=== PATIENT | male | born 1935 | race African-American/Black ===

== ENCOUNTER 2017-01-16 07:35 | Day surgery (SDC) | payer MEDICARE, BC ==
[2017-01-16 08:36] LABS: ABSOLUTE BASOPHILS # (AUTO) 0.1 10^3/uL (0.0-0.2); ABSOLUTE EOSINOPHILS # (AUTO) 0.2 10^3/uL (0.0-0.6); ABSOLUTE LYMPHOCYTES (AUTO) 1.7 10^3/uL (0.5-4.7); ABSOLUTE MONOCYTES (AUTO) 0.7 10^3/uL (0.1-1.4); ABSOLUTE NEUT (AUTO) 2.8 10^3/uL (1.7-8.2); BASOPHILS % (AUTO) 1.1 % (0-2); EOSINOPHILS % (AUTO) 3.8 % (0-6); HEMATOCRIT 32.8 % (37.9-51.0); HEMOGLOBIN 10.9 g/dL (13.5-17.0); HGB HCT DIFFERENCE -0.1; LYMPHOCYTES % (AUTO) 30.7 % (13-45); MEAN CORPUSCULAR HEMOGLOBIN 29.3 pg (27.0-33.4); MEAN CORPUSCULAR HGB CONC 33.4 g/dL (32.0-36.0); MEAN CORPUSCULAR VOLUME 88 fl (80-97); MONOCYTES % (AUTO) 13.1 % (3-13); RED BLOOD COUNT 3.74 10^6/uL (4.35-5.55); RED CELL DISTRIBUTION WIDTH 15.8 % (11.5-14.0); SEGMENTED NEUTROPHILS % (AUTO) 51.3 % (42-78); WHITE BLOOD COUNT 5.4 10^3/uL (4.0-10.5)
[2017-01-16 08:51] LABS: ANION GAP 15 (5-19); BLOOD UREA NITROGEN 59 mg/dL (7-20); CALCIUM 9.6 mg/dL (8.4-10.2); CARBON DIOXIDE 26 mmol/L (22-30); CHLORIDE 104 mmol/L (98-107); CREATININE RESULT 6.58 mg/dL (0.52-1.25); GLUCOSE 90 mg/dL (75-110); POTASSIUM 3.7 mmol/L (3.6-5.0); SODIUM 145.1 mmol/L (137-145)
[2017-01-16] MEDS ORDERED: FENTANYL CITRATE INJ/PF 100 MCG/2 ML AMPUL ONE (09:35)
[2017-01-16] MEDS ORDERED: HEPARIN SOD (PORCINE) 5,000 UNIT/ML 1 ML SYRINGE ONE (09:35)
[2017-01-16] MEDS ORDERED: MIDAZOLAM 2 MG/2 ML INJ ONE (09:35)
[2017-01-16] MEDS ORDERED: LIDOCAINE 0.5% INJ-PF (5 MG/ML) 50 ML SDV ONE (09:50)
--- NOTE | 2017-01-16 11:22 | PDOC DISCHARGE SUMMARY ---
Discharge Summary (SDC) - Discharge Final Diagnosis: 1 malfunctioning AV fistula. #2 end-stage renal disease. #3 multiple comorbidities. Date of Surgery: 01/16/17 Discharge Date: 01/16/17 Condition: Fair Treatment or Instructions: #1 discharge patient home after achieving ASU criteria. #2 continue medications per medication reconciliation sheet. #3 follow-up in office by appointment in about 1 month, call for appointment. #4 dressing to be left on until dialysis. #5 continue scheduled hemodialysis. #6 may shower starting in 48 hours. Discharge Diet: Other (Comments) - Renal Respiratory Treatments at Home: Deep Breathing/Coughing Report the Following to Your Physician Immediately: Unusual Bleeding
--- NOTE | 2017-01-16 11:25 | PDOC H&P ---
General Chief Complaint: This patient was referred across from hemodialysis because of a malfunctioning fistula. It has been in place for several years and dysfunction noted recently. - Diagnosis (1) ESRD (end stage renal disease) Is this a Current Diagnosis?: Yes (2) Malfunction of arteriovenous dialysis fistula Is this a Current Diagnosis?: Yes - Current Medications/Allergies Home Medications: Doxazosin Mesylate 1 tab PO QHS 07/01/14 Aspirin [Aspirin 81 mg Chewable Tablet] 1 tab PO QHS 05/26/15 Insulin Glargine,Hum.rec.anlog [Lantus Solostar] 12 units SQ QPM PRN 10/18/15 B Complex & C No.20/Folic Acid [Lewis Caps Softgel] 1 tab PO DAILY 08/08/16 Calcium Acetate 667 mg PO DAILY 08/08/16 Cholecalciferol (Vitamin D3) [Vitamin D3] 2,000 unit PO DAILY 08/08/16 Allergies/Adverse Reactions: No Known Allergies Allergy (Verified 01/16/17 08:19) Past Medical History Cardiac Medical History: Reports: Hypertension Denies: Coronary Artery Disease, Myocardial Infarction Pulmonary Medical History: Denies: Asthma, Bronchitis, Chronic Obstructive Pulmonary Disease (COPD), Pneumonia Neurological Medical History: Denies: Seizures Musculoskeltal Medical History: Reports: Arthritis - GENERALIZED Hematology: Reports: Anemia Past Surgical History Past Surgical History: Reports: Vascular Surgery - Left forearm radiocephalic fistula. Failed. Left transposed basilic vei Family History Family History: Reviewed & Not Pertinent Parental Family History Reviewed: No Children Family History Reviewed: No Sibling(s) Family History Reviewed.: No Social History Smoking Status: Current Every Day Smoker Physical Exam Vital Signs: Temp Pulse Resp BP Pulse Ox 97.6 F 83 16 142/81 H 99 01/16/17 11:00 01/16/17 11:15 01/16/17 11:15 01/16/17 11:15 01/16/17 11:15 Intake & Output 01/15/17 01/16/17 01/17/17 06:59 06:59 06:59 Weight 77 kg Additional comments: Constitutional: A well-developed well-nourished -Monegasque gentleman. No acute distress. Eyes: Mucous membranes pink and moist, sclerae anicteric, pupils react normally. Arcus senilis noted. Respiratory: No shortness of breath or wheezing. Breath sounds are normal and equal. Cardiac: Heart sounds normal, no murmurs, no increased JVP. Extremities: Upper extremities shows normal range of movement and pulses. 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 Bruit normal. Firm to palpation. Psychiatric: judgment, memory, insight seem normal. Mood is normal, appropriate and pleasant. Impression/Plan Impression: #1 malfunctioning AV fistula, left transposed basilic to brachial fistula. #2 end-stage renal disease on hemodialysis. #3 hypertension. Plan: The plan is to do an angiogram and possibly angioplasty. The object is to improve the fistula function. Ultimately would like this fistula to fistula to serve the patient for as long as possible. The risks, benefits, expected outcome and alternatives are familiar to the patient and he wishes to proceed.
--- NOTE | 2017-01-16 11:29 | Operative Report ---
Operative Report DATE OF SURGERY: 01/16/17 PREOPERATIVE DIAGNOSIS: #1 malfunctioning AV fistula, left transposed basilic to brachial fistula. #2 end-stage renal disease on hemodialysis. #3 hypertension. POSTOPERATIVE DIAGNOSIS: #1 malfunctioning AV fistula, left transposed basilic to brachial fistula. #2 end-stage renal disease on hemodialysis. #3 hypertension. OPERATION: #1 needle introduction into fistula. #2 angiogram angioplasty. #3 angiogram and interpretation. SURGEON: ELIZABETH TAYLOR TRUCK CHAUFFEUR: none ANESTHESIA: Moderate Sedation TISSUE REMOVED OR ALTERED: Applicable COMPLICATIONS: None ESTIMATED BLOOD LOSS: 2 mL. INTRAOPERATIVE FINDINGS: Of a short segment tight stenosis at about 20 cm from the arteriovenous anastomosis. Cephalad soft, proximally very firm initially. After angioplasty the fistula appropriately softer with better flow. The angiographic results were of elimination of the area of stenosis after angioplasty. Initial stenosis is about 90% of the adjacent lumen. After angioplasty was eliminated. PROCEDURE: PROCEDURE: After verifying the procedure and having obtained informed consent, the patient's left arm was prepared with Chlorhexidine and draped out with sterile linen. Local anesthesia infiltrated. Percutaneous access into the fistula ,[ antegrade], obtained about [2 cm] from the arteriovenous anastomosis using a micro puncture needle followed by micro puncture wire and then a micro puncture catheter. Angiogram demonstrated the aforementioned findings. Angioplasty was elected. A 0.035 [place] wire was inserted, and over this, a 6 Afghan short introducer was placed, this was followed by a [7-mm ] angioplasty balloon . Angioplasty was done at the stenotic segment, inflating up to 14 rohith for 2 minutes. This was done incrementally. Completion angiogram showed residual stenosis. The 70 mm balloon was once again and inflated the 18 rohith for 1 minute. Repeat angiogram showed some residual stenosis. A 8 mm angioplasty was now inserted over the culprit area and inflated up to 6 rohith for 2 minutes. Completion angiogram demonstrated [satisfactory result]. The instrumentation was now withdrawn over pressure for 10 minutes. Dressings applied, procedure concluded. Exposure time: 0.4 minutes Radiation: 33 rebecca per centimeter squared Contrast: 25 mm of Isovue-M 300, low osmolality. DICTATING PHYSICIAN: ELIZABETH CASTRO M.D. cc: ELIZABETH CASTRO M.D. ([id number]) >>
[2017-01-16 12:10] VITALS: BP 140/82
--- NOTE | 2017-01-16 16:00 | EKG REPORT ---
SEVERITY:- ABNORMAL ECG - SINUS RHYTHM LEFT AXIS DEVIATION PROLONGED QT INTERVAL 1ST DEGREE AV BLOCK : Confirmed by: José Miguel Guerra 16-Jan-2017 15:59:19
== END 2017-01-16 12:08 | disposition home or self-care (01) ==
LOC: CCL 07:35
PROVIDERS: ATTEND Surgery
PROC: 05793DZ Dilation of Right Brachial Vein with Intraluminal Device, Percutaneous Approach (ICD-10-PCS; principal; 2017-01-16)
DX: T82.858A Stenosis of other vascular prosthetic devices, implants and grafts, initial encounter (principal); Y83.2 Surgical operation with anastomosis, bypass or graft as the cause of abnormal reaction of the patient, or of later complication, without mention of misadventure at the time of the procedure; I12.0 Hypertensive chronic kidney disease with stage 5 chronic kidney disease or end stage renal disease; N18.6 End stage renal disease; Z99.2 Dependence on renal dialysis; M19.90 Unspecified osteoarthritis, unspecified site; F17.210 Nicotine dependence, cigarettes, uncomplicated; J44.9 Chronic obstructive pulmonary disease, unspecified; Z79.4 Long term (current) use of insulin; Z79.899 Other long term (current) drug therapy; Z79.01 Long term (current) use of anticoagulants; Z79.82 Long term (current) use of aspirin
CPT/HCPCS: 36415; 85025; 80048; 36902; 93005; 93010; C1725 ×2; Q9967; C1769; J2250; J1644 ×2; J3010; J3490

== ENCOUNTER 2017-03-06 09:32 | Day surgery (SDC) | payer MEDICARE, BC ==
[~2017-03-06 09:32] MED LIST: DIAZEPAM 5 MG TABLET PO PRN; OXYCODONE-ACETAMINOPHEN 5-325 MG TABLET PO PRN
[2017-03-06 10:20] LABS: HEMATOCRIT 33.8 % (37.9-51.0); HEMOGLOBIN 11.4 g/dL (13.5-17.0); HGB HCT DIFFERENCE 0.4; MEAN CORPUSCULAR HEMOGLOBIN 29.7 pg (27.0-33.4); MEAN CORPUSCULAR HGB CONC 33.8 g/dL (32.0-36.0); MEAN CORPUSCULAR VOLUME 88 fl (80-97); RED BLOOD COUNT 3.84 10^6/uL (4.35-5.55); RED CELL DISTRIBUTION WIDTH 16.5 % (11.5-14.0); WHITE BLOOD COUNT 5.6 10^3/uL (4.0-10.5)
[2017-03-06 10:39] LABS: ANION GAP 14 (5-19); BLOOD UREA NITROGEN 65 mg/dL (7-20); CALCIUM 9.3 mg/dL (8.4-10.2); CARBON DIOXIDE 25 mmol/L (22-30); CHLORIDE 102 mmol/L (98-107); GLUCOSE 82 mg/dL (75-110); POTASSIUM 3.7 mmol/L (3.6-5.0); SODIUM 140.8 mmol/L (137-145)
[2017-03-06] MEDS ORDERED: MIDAZOLAM 2 MG/2 ML INJ ONE (11:32)
[2017-03-06] MEDS ORDERED: FENTANYL CITRATE INJ/PF 100 MCG/2 ML AMPUL ONE (11:32)
[2017-03-06] MEDS ORDERED: LIDOCAINE 0.5% INJ-PF (5 MG/ML) 50 ML SDV ONE (11:32)
[2017-03-06] MEDS ORDERED: HEPARIN SOD (PORCINE) 5,000 UNIT/ML 1 ML SYRINGE ONE (11:33)
--- NOTE | 2017-03-06 13:09 | PDOC H&P ---
General Chief Complaint: This patient was referred from dialysis because of a malfunctioning arteriovenous fistula. - Current Medications/Allergies Home Medications: Doxazosin Mesylate 1 tab PO QHS 07/01/14 Aspirin [Aspirin 81 mg Chewable Tablet] 1 tab PO QHS 05/26/15 Insulin Glargine,Hum.rec.anlog [Lantus Solostar] 12 units SQ QPM PRN 10/18/15 B Complex & C No.20/Folic Acid [[place] Caps Softgel] 1 tab PO DAILY 08/08/16 Cholecalciferol (Vitamin D3) [Vitamin D3] 2,000 unit PO DAILY 08/08/16 Allergies/Adverse Reactions: No Known Allergies Allergy (Verified 01/16/17 08:19) Past Medical History Cardiac Medical History: Reports: Hypertension Denies: Coronary Artery Disease, Myocardial Infarction Pulmonary Medical History: Denies: Asthma, Bronchitis, Chronic Obstructive Pulmonary Disease (COPD), Pneumonia Neurological Medical History: Denies: Seizures Musculoskeltal Medical History: Reports: Arthritis Hematology: Reports: Anemia Past Surgical History Past Surgical History: Reports: Vascular Surgery - Left forearm radiocephalic fistula. Failed. Left transposed basilic vei Family History Family History: Reviewed & Not Pertinent Parental Family History Reviewed: No Children Family History Reviewed: No Sibling(s) Family History Reviewed.: No Social History Smoking Status: Never Smoker Physical Exam Vital Signs: Temp Pulse Resp BP Pulse Ox 98.3 F 79 16 147/87 H 100 03/06/17 11:14 03/06/17 12:58 03/06/17 11:14 03/06/17 11:14 03/06/17 11:14 Intake & Output 03/05/17 03/06/17 03/07/17 06:59 06:59 06:59 Weight 82 kg Additional comments: A well-developed well-nourished -Ugandan male. Mildly increased body habitus. No acute distress. Eyes membranes is pink and moist, sclerae anicteric. Respiratory no shortness of breath. Breath sounds are normal and equal bilaterally. Cardiac: Heart sounds 1 and 2 heard, no murmurs. Upper extremities show normal range of movement and pulsatile to the radials. Normal capillary refill. A cephalic to brachial fistula is appreciated. In the left upper extremity. Somewhat firm, suggesting cephalad stenosis. Psychiatric the patient is alert, oriented, judgment, memory, insight normal Impression/Plan Impression: #1 malfunctioning arteriovenous fistula, left cephalic to brachial. #2 end-stage renal disease on hemodialysis. #3 hypertension Plan: The plan is to do an angiogram of the fistula and to correct any apparent problems. The goal is to have a sustained use of this fistula for long-term into the future.
--- NOTE | 2017-03-06 13:15 | Operative Report ---
Operative Report DATE OF SURGERY: 03/06/17 PREOPERATIVE DIAGNOSIS: #1 malfunctioning arteriovenous fistula, left cephalic to brachial. #2 end-stage renal disease on hemodialysis. #3 hypertension POSTOPERATIVE DIAGNOSIS: #1 malfunctioning arteriovenous fistula, left cephalic to brachial. Post angioplasty. #2 end-stage renal disease on hemodialysis. # 3 hypertension OPERATION: #1 needle access into fistula. #2 second needle access into fistula. #3 multiple angioplasty in the arm brachiocephalic fistula. #4 angiogram and interpretation. SURGEON: ELIZABETH TAYLOR ADVISORY APPLICATION DEVELOPER: none ANESTHESIA: Moderate Sedation TISSUE REMOVED OR ALTERED: Not applicable. COMPLICATIONS: None ESTIMATED BLOOD LOSS: 5 mL. INTRAOPERATIVE FINDINGS: Of a well-founded left arm transposed basilic vein fistula. A stenosis appreciated about 8 cm away from the arteriovenous anastomosis and another the about 25 cm. Both of these represent about 80% of the adjacent lumen. Both inflow and outflow problems. Both were with angioplasty with satisfactory outcome. Almost complete elimination of stenosis and waists. Mild residual stenosis. Proved fistula to palpation . PROCEDURE: PROCEDURE: After verifying the procedure and having obtained informed consent, the patient's left arm and forearm were prepared with Chlorhexidine and draped out with sterile linen. Local anesthesia infiltrated. Percutaneous access into the fistula ,[retrograde], obtained about [20 cm] from the arteriovenous anastomosis using a micro puncture needle followed by micro puncture wire and then a micro puncture catheter. Cephalad angiograms done up to the heart. The inner micropuncture catheter and cannula replaced with the wire and then the full catheter. A 0.035 Gilman wire was inserted, and over this, a 6 Greek short introducer was placed. 7 mm angioplasty balloon inserted . Angioplasty was now done using a insufflator. Insufflated up to 22 rohith for 2 minutes. An into atmosphere increments. Stenosis proved quite stubborn but eventually were overcome. Completion angiogram satisfactory. A second needle stick done about 6 cm from the anastomosis in a antegrade direction student with a 0.035 Glidewire and then with a 6 Greek introducer. At 8 mm angioplasty balloon was inserted and positioned over the area of stenosis. Angioplasty was now done using a 3 mL syringe with hand injection. For 1 minute. Completion angiogram demonstrated [satisfactory result]. The instrumentation was now withdrawn over hand-held pressure for 10 minutes.. Dressings applied, procedure concluded. Exposure time: 1.3 minutes Radiation: 27 rebecca per centimeter squared Contrast: 25 mL of Isovue-M 300 low osmolality. DICTATING PHYSICIAN: ELIZABETH CASTRO M.D. cc: ELIZABETH CASTRO M.D. ([id number]) >>
--- NOTE | 2017-03-06 13:21 | PDOC DISCHARGE SUMMARY ---
Discharge Summary (SDC) - Discharge Final Diagnosis: #1 malfunctioning arteriovenous fistula, left cephalic to brachial. #2 end-stage renal disease on hemodialysis. #3 hypertension Date of Surgery: 03/06/17 Discharge Date: 03/06/17 Condition: Good Treatment or Instructions: #1 activities within moderation encouraged. #2 follow up in my office by appointment in about 1 month. Call for appointment. #3 the wounds covered clean and dry until hemodialysis. #4 may shower in 48 hours, keep operated area as dry as possible. #5 discharge from ambulatory when ASU criteria met. #6 medications per medication reconciliation sheet. Discharge Diet: Other (Comments) - Renal Respiratory Treatments at Home: Deep Breathing/Coughing Discharge Activity: Activity As Tolerated, Slowly Increase Activity Report the Following to Your Physician Immediately: Shortness of Breath, Unusual Bleeding
[2017-03-06 14:29] VITALS: BP 133/82
--- NOTE | 2017-03-06 18:53 | EKG REPORT ---
SEVERITY:- OTHERWISE NORMAL ECG - SINUS RHYTHM LEFT AXIS DEVIATION : Confirmed by: José Miguel Guerra 06-Mar-2017 18:52:44
== END 2017-03-06 14:20 | disposition home or self-care (01) ==
LOC: CCL 09:32
PROVIDERS: ATTEND Surgery
PROC: 057F3DZ Dilation of Left Cephalic Vein with Intraluminal Device, Percutaneous Approach (ICD-10-PCS; principal; 2017-03-06)
DX: T82.858A Stenosis of other vascular prosthetic devices, implants and grafts, initial encounter (principal); Y83.2 Surgical operation with anastomosis, bypass or graft as the cause of abnormal reaction of the patient, or of later complication, without mention of misadventure at the time of the procedure; I12.0 Hypertensive chronic kidney disease with stage 5 chronic kidney disease or end stage renal disease; N18.6 End stage renal disease; Z99.2 Dependence on renal dialysis; D64.9 Anemia, unspecified; Z79.82 Long term (current) use of aspirin; Z79.4 Long term (current) use of insulin; Z79.899 Other long term (current) drug therapy
CPT/HCPCS: 36415; 85027; 80048; 36907; 36902; 93005; 93010; C1725 ×2; Q9967; C1769; J2250; J1644 ×2; A9270 ×2; J3010; J3490

== ENCOUNTER 2017-05-15 09:55 | Day surgery (SDC) | payer MEDICARE, BC ==
[2017-05-15] MEDS ORDERED: DIAZEPAM 5 MG TABLET ONE (11:05)
[2017-05-15] MEDS ORDERED: OXYCODONE-ACETAMINOPHEN 5-325 MG TABLET ONE (11:06)
[2017-05-15 11:09] LABS: HEMOGLOBIN 12.1 g/dL (13.5-17.0); HGB HCT DIFFERENCE 0.3; MEAN CORPUSCULAR HEMOGLOBIN 30.3 pg (27.0-33.4); MEAN CORPUSCULAR HGB CONC 33.7 g/dL (32.0-36.0); MEAN CORPUSCULAR VOLUME 90 fl (80-97); RED BLOOD COUNT 4.01 10^6/uL (4.35-5.55); RED CELL DISTRIBUTION WIDTH 15.4 % (11.5-14.0); WHITE BLOOD COUNT 5.6 10^3/uL (4.0-10.5)
[2017-05-15 12:12] LABS: ANION GAP 15 (5-19); BLOOD UREA NITROGEN 67 mg/dL (7-20); CALCIUM 9.2 mg/dL (8.4-10.2); CARBON DIOXIDE 23 mmol/L (22-30); CHLORIDE 103 mmol/L (98-107); CREATININE RESULT 7.14 mg/dL (0.52-1.25); GLUCOSE 66 mg/dL (75-110); POTASSIUM 3.9 mmol/L (3.6-5.0); SODIUM 140.5 mmol/L (137-145)
--- NOTE | 2017-05-15 12:21 | PDOC H&P ---
General Chief Complaint: The patient was referred for evaluation and improvement of his arteriovenous fistula. Dialysis has been suboptimal lately. - Diagnosis (1) ESRD (end stage renal disease) Is this a Current Diagnosis?: Yes (2) Hypertension Is this a Current Diagnosis?: Yes (3) Malfunction of arteriovenous dialysis fistula Is this a Current Diagnosis?: Yes - Current Medications/Allergies Home Medications: Doxazosin Mesylate 1 tab PO QHS 07/01/14 Aspirin [Aspirin 81 mg Chewable Tablet] 1 tab PO QHS 05/26/15 Insulin Glargine,Hum.rec.anlog [Lantus Solostar] 12 units SQ QPM PRN 10/18/15 B Complex & C No.20/Folic Acid [[place] Caps Softgel] 1 tab PO DAILY 08/08/16 Cholecalciferol (Vitamin D3) [Vitamin D3] 2,000 unit PO DAILY 08/08/16 Allergies/Adverse Reactions: No Known Allergies Allergy (Verified 01/16/17 08:19) Past Medical History Cardiac Medical History: Reports: Hypertension Denies: Coronary Artery Disease, Myocardial Infarction Pulmonary Medical History: Denies: Asthma, Bronchitis, Chronic Obstructive Pulmonary Disease (COPD), Pneumonia Neurological Medical History: Denies: Seizures Musculoskeltal Medical History: Reports: Arthritis Hematology: Reports: Anemia Past Surgical History Past Surgical History: Reports: Vascular Surgery - Left forearm radiocephalic fistula. Failed. Left transposed basilic vei Family History Family History: Reviewed & Not Pertinent Parental Family History Reviewed: No Children Family History Reviewed: No Sibling(s) Family History Reviewed.: No Social History Smoking Status: Current Every Day Smoker Physical Exam Vital Signs: Temp Pulse Resp BP Pulse Ox 98.2 F 88 24 H 146/79 H 05/15/17 11:05 05/15/17 11:05 05/15/17 11:05 05/15/17 11:05 Intake & Output 05/14/17 05/15/17 05/16/17 06:59 06:59 06:59 Weight 79.2 kg Additional comments: Constitutional: Well-developed well-nourished -Spanish gentleman. No apparent acute distress. Eyes: Mucous membranes pink and moist, pupils equal and reactive to light. Conjunctiva normal. Arcus senilis noted. ENT: Hearing grossly normal. External pinna normal to inspection. Teeth missing. Tongue normal to inspection. Cardiac: Heart sounds 1 and 2 normal. Respiratory breath sounds are present bilaterally, normal. Normal respiratory effort. Psychiatric: Judgment, memory, insight seem normal. Mood is pleasant and appropriate. Extremities: Upper extremities show normal range of movement. Pulses present noted to the radial arteries. Capillary refill normal. No cyanosis noted. No muscle wasting noted. Left arm transposed basilic vein fistula present. Somewhat soft. A vigorous fluttering sensation in the first 6 cm. Impression/Plan Impression: 1. Malfunctioning AV fistula, left transposed basilic 2. End-stage renal disease on hemodialysis. 3. Hypertension. Plan: This patient with a abnormal bruit, soft fistula, very likely has inflow stenosis. Angioplasty is recommended to preserve fistula function. The patient understands the risks, benefits, expected outcome and wishes to proceed.
[2017-05-15] MEDS ORDERED: DEXTROSE 50%-WATER 25 GM/50 ML DISP.SYRIN IV ONE (12:22)
[2017-05-15] MEDS ORDERED: FENTANYL CITRATE INJ/PF 100 MCG/2 ML AMPUL ONE (12:26)
[2017-05-15] MEDS ORDERED: MIDAZOLAM 2 MG/2 ML INJ ONE (12:26)
[2017-05-15] MEDS ORDERED: HEPARIN SOD (PORCINE) 5,000 UNIT/ML 1 ML SYRINGE ONE (12:26)
[2017-05-15] MEDS ORDERED: LIDOCAINE 0.5% INJ-PF (5 MG/ML) 50 ML SDV ONE (12:26)
--- NOTE | 2017-05-15 13:49 | PDOC DISCHARGE SUMMARY ---
Discharge Summary (SDC) - Discharge Final Diagnosis: #1 malfunctioning AV fistula, left transposed basilic. 2. End-stage renal disease on hemodialysis. 3. Hypertension. Date of Surgery: 05/15/17 Discharge Date: 05/15/17 Condition: Fair Forms: [facility] Discharge Plan Treatment or Instructions: Discharge home [after recovery per ASU criteria]. Diet , [renal],as tolerated, when fully awake advance as tolerated. Activities within moderation encouraged. Follow up in my office by appointment in about [1 month]. Call for appointment. Leave wounds [covered], [keep clean and dry, until hemodialysis]. Medications per med rec. May shower [in 48 hrs], [try to keep operated area as dry as possible]. Referrals: ELIZABETH CASTRO MD [ACTIVE STAFF] - Discharge Diet: Other (Comments) - Renal Respiratory Treatments at Home: Deep Breathing/Coughing Discharge Activity: Activity As Tolerated Report the Following to Your Physician Immediately: Shortness of Breath, Unusual Bleeding
--- NOTE | 2017-05-15 13:54 | Operative Report ---
Operative Report DATE OF SURGERY: 05/15/17 PREOPERATIVE DIAGNOSIS: #1 malfunctioning AV fistula, left transposed basilic. 2. End-stage renal disease on hemodialysis. 3. Hypertension. POSTOPERATIVE DIAGNOSIS: #1 malfunctioning AV fistula, left transposed basilic. 2. End-stage renal disease on hemodialysis. 3. Hypertension. OPERATION: 1. Needle access into the arteriovenous fistula. 2. Second needle access and arteriovenous fistula. 3. Angioplasty, perianastomotic. 3. Angioplasty AV fistula. 4. Angiogram and interpretation. SURGEON: ELIZABETH TAYLOR SINGER AND UNLOADER: None ANESTHESIA: Moderate Sedation TISSUE REMOVED OR ALTERED: Not applicable COMPLICATIONS: None ESTIMATED BLOOD LOSS: 5 mL. INTRAOPERATIVE FINDINGS: Of a well-established left arm transposed basilic fistula. Initially somewhat soft. After angioplasty in the arterial area, firm. After angioplasty, appropriately palpable. It perianastomotic stenosis about 70% of the adjacent lumen is noted. This was completely resolved with angioplasty with a 5 mm balloon. A stenosis just before the chest wall in the upper arm representing 80% of the adjacent fistula was completely resolved with angioplasty using a 8 mm balloon. PROCEDURE: PROCEDURE: After verifying the procedure and having obtained informed consent, the patient's left arm was prepared with Chlorhexidine and draped out with sterile linen. Local anesthesia infiltrated. Percutaneous access into the fistula was obtained retrograde, about 20 cm from the arteriovenous anastomosis using a micropuncture needle followed by micropuncture wire and then a micropuncture catheter. Angiogram demonstrated the cephalad lesion. The catheter was replaced with a 0.035 Glidewire and then with a 6 Austrian short introducer. This was followed by the introduction of a 5 mm angioplasty balloon. This was positioned, over the Glidewire at the anastomotic anastomotic and perianastomotic area. The patient was done using hand injection, a 3 mils syringe for 2 minutes. Deflation of the completion angiogram demonstrated really nice resolution of the stenosis. Percutaneous access into the fistula ,[ antegrade], obtained about 3 cm] from the arteriovenous anastomosis using a micro puncture needle followed by micro puncture wire and then a micro puncture catheter. Angiogram demonstrated the aforementioned findings. Angioplasty was elected. A 0.035 [place] wire was inserted, and over this, a 6 8 Austrian short introducer was placed, this was followed by a [8 hand pressure for 10 minutes by the clock.-mm] angioplasty balloon . Angioplasty was Done at the culprit lesion with an 8 mm balloon for 1 minute with hand injection , 3 mils syringe]. Completion angiogram demonstrated [satisfactory result]. The instrumentation was now withdrawn over a short piece of catheter and a 5-0 Prolene suture. Dressings applied, procedure concluded. Exposure time: 1.5 minutes Radiation: 3 mcg/cm Contrast: 3 mils of Isovue-300, low osmolality. DICTATING PHYSICIAN: ELIZABETH CASTRO M.D. cc: ELIZABETH CASTRO M.D. ([id number]) >>
[2017-05-15 15:00] VITALS: BP 125/72
--- NOTE | 2017-05-15 17:33 | RADIOLOGY REPORT (SQ) ---
EXAM DESCRIPTION: FISTULAGRAM W/PLASTY COMPLETED DATE/TIME: 05/15/2017 4:35 pm REASON FOR STUDY: T82.858A T82.858A STENOSIS OF OTHER VASCULAR PROSTH DEV/GRFT, INIT COMPARISON: None. FLUOROSCOPY TIME: 1.5 minutes. 14 images saved to PACS. TECHNIQUE: Intra-operative images acquired during surgical procedure to evaluate progress. NUMBER OF IMAGES: 14 images. LIMITATIONS: None. FINDINGS: Imaging in fluoroscopy during upper extremity dialysis access evaluation and plasty by Dr Minerva Jones . Please refer to the operative report for further details. IMPRESSION: INTRA PROCEDURAL IMAGING ABOVE . COMMENT: Quality ID [id number]: Final reports for procedures using fluoroscopy that document radiation exp osure indices, or exposure time and number of fluorographic images (if radiation exposure indices are not available) Please consult full operative report of the attending physician for description of the procedure. TECHNICAL DOCUMENTATION: JOB ID: [id number]- All Rights Reserved
== END 2017-05-15 14:46 | disposition home or self-care (01) ==
LOC: SC 09:55
PROVIDERS: ATTEND Surgery
PROC: 057C3DZ Dilation of Left Basilic Vein with Intraluminal Device, Percutaneous Approach (ICD-10-PCS; principal; 2017-05-15)
DX: T82.858A Stenosis of other vascular prosthetic devices, implants and grafts, initial encounter (principal); Y83.2 Surgical operation with anastomosis, bypass or graft as the cause of abnormal reaction of the patient, or of later complication, without mention of misadventure at the time of the procedure; I12.0 Hypertensive chronic kidney disease with stage 5 chronic kidney disease or end stage renal disease; N18.6 End stage renal disease; Z79.4 Long term (current) use of insulin; Z79.82 Long term (current) use of aspirin; M19.90 Unspecified osteoarthritis, unspecified site; D64.9 Anemia, unspecified; Z87.891 Personal history of nicotine dependence; Z99.2 Dependence on renal dialysis
CPT/HCPCS: 36415; 82962; 85027; 80048; 36902; C1725 ×2; C1752; C1887; Q9967; C1769; J1644 ×2; J3490 ×2; A9270 ×2; J2250; J3010

== ENCOUNTER 2017-09-11 07:16 | Day surgery (SDC) | payer MEDICARE, BC ==
[2017-09-11 08:25] LABS: HEMATOCRIT 33.6 % (37.9-51.0); HEMOGLOBIN 11.4 g/dL (13.5-17.0); HGB HCT DIFFERENCE 0.6; MEAN CORPUSCULAR HEMOGLOBIN 30.2 pg (27.0-33.4); MEAN CORPUSCULAR VOLUME 89 fl (80-97); RED BLOOD COUNT 3.79 10^6/uL (4.35-5.55); RED CELL DISTRIBUTION WIDTH 15.7 % (11.5-14.0); WHITE BLOOD COUNT 4.6 10^3/uL (4.0-10.5)
[2017-09-11 08:59] LABS: ANION GAP 15 (5-19); BLOOD UREA NITROGEN 74 mg/dL (7-20); CALCIUM 9.2 mg/dL (8.4-10.2); CARBON DIOXIDE 24 mmol/L (22-30); CHLORIDE 106 mmol/L (98-107); CREATININE RESULT 7.25 mg/dL (0.52-1.25); GLUCOSE 69 mg/dL (75-110); POTASSIUM 4.1 mmol/L (3.6-5.0); SODIUM 145.4 mmol/L (137-145)
[2017-09-11] MEDS ORDERED: FENTANYL CITRATE INJ/PF 100 MCG/2 ML AMPUL ONE (09:20)
[2017-09-11] MEDS ORDERED: MIDAZOLAM 2 MG/2 ML INJ ONE (09:20)
[2017-09-11] MEDS ORDERED: HEPARIN SOD (PORCINE) 5,000 UNIT/ML 1 ML SYRINGE ONE (09:21)
[2017-09-11] MEDS ORDERED: LIDOCAINE 0.5% INJ-PF (5 MG/ML) 50 ML SDV ONE (09:41)
--- NOTE | 2017-09-11 10:57 | PDOC H&P ---
General Chief Complaint: #1 malfunctioning arteriovenous fistula, left transposed basilic. 2. End-stage renal disease on hemodialysis. 3. Diabetes mellitus type 2. 4. Hypertension - Current Medications/Allergies Home Medications: Doxazosin Mesylate 1 tab PO QHS 07/01/14 Aspirin [Aspirin 81 mg Chewable Tablet] 1 tab PO QHS 05/26/15 Insulin Glargine,Hum.rec.anlog [Lantus Solostar] 12 units SQ QPM PRN 10/18/15 B Complex W-C No.20/Folic Acid [[place] Caps Softgel] 1 tab PO DAILY 08/08/16 Cholecalciferol (Vitamin D3) [Vitamin D3] 2,000 unit PO DAILY 08/08/16 Allergies/Adverse Reactions: No Known Allergies Allergy (Verified 01/16/17 08:19) Past Medical History Cardiac Medical History: Reports: Hypertension Denies: Coronary Artery Disease, Myocardial Infarction Pulmonary Medical History: Denies: Asthma, Bronchitis, Chronic Obstructive Pulmonary Disease (COPD), Pneumonia Neurological Medical History: Denies: Seizures Musculoskeltal Medical History: Denies: Arthritis Hematology: Denies: Anemia Past Surgical History Past Surgical History: Reports: Vascular Surgery - Left forearm radiocephalic fistula. Failed. Left transposed basilic vei Family History Family History: Reviewed & Not Pertinent Parental Family History Reviewed: No Children Family History Reviewed: No Sibling(s) Family History Reviewed.: No Social History Smoking Status: Unknown if Ever Smoked Physical Exam Vital Signs: Temp Pulse Resp BP Pulse Ox 97.9 F 72 16 144/72 H 98 09/11/17 07:41 09/11/17 07:41 09/11/17 07:41 09/11/17 07:41 09/11/17 07:41 Intake & Output 09/10/17 09/11/17 09/12/17 06:59 06:59 06:59 Weight 82 kg Additional comments: Constitutional: Well-developed well-nourished -[place]an gentleman. No apparent acute distress. Eyes: Mucous membranes pink and moist, pupils equal and reactive to light. Conjunctiva normal. Cornea normal. ENT: Hearing grossly normal. External pinna normal to inspection. Teeth missing. Tongue normal to inspection. Cardiac: Heart sounds 1 and 2 normal, no murmurs. Respiratory breath sounds are present bilaterally, normal. Normal respiratory effort. Skin: Normal to inspection. No ulcers, normal turgor. Psychiatric: Judgment, memory, insight seem normal. Mood is pleasant and appropriate. Extremities: Upper extremities show normal range of movement. Pulses present noted to the radial arteries. Capillary refill normal. No cyanosis noted. No muscle wasting noted. Left sided transposed basilic vein fistula in place, very firm suggestive of cephalad stenosis. . Impression/Plan Plan: In this patient with a malfunctioning AV fistula, angiogram and possible angioplasty I recommended. The objective is prolonged use of his fistula. The procedure, its risks, benefits, expected outcome and alternatives are familiar to the patient and he wishes to proceed.
--- NOTE | 2017-09-11 10:59 | PDOC DISCHARGE SUMMARY ---
Discharge Summary (SDC) - Discharge Final Diagnosis: #1 malfunctioning arteriovenous fistula, left transposed basilic. 2. End-stage renal disease on hemodialysis. 3. Diabetes mellitus type 2. 4. Hypertension Date of Surgery: 09/11/17 Discharge Date: 09/11/17 Condition: Good Treatment or Instructions: Discharge home [after recovery per ASU criteria]. Diet , [renal],as tolerated, when fully awake advance as tolerated. Activities within moderation encouraged. Follow up in my office by appointment in about [1 month. Call for appointment. Leave wounds [covered], [keep clean and dry, until hemodialysis]. Hold of on school/work [until evaluation in office]. May shower [in 48 hrs], [try to keep operated area as dry as possible]. Referrals: SUSI GONZALEZ MD [Primary Care Provider] - Respiratory Treatments at Home: Deep Breathing/Coughing Discharge Activity: Activity As Tolerated Report the Following to Your Physician Immediately: Shortness of Breath, Unusual Bleeding
--- NOTE | 2017-09-11 11:04 | Operative Report ---
Operative Report DATE OF SURGERY: 09/11/17 PREOPERATIVE DIAGNOSIS: #1 malfunctioning arteriovenous fistula, left transposed basilic. 2. End-stage renal disease on hemodialysis. 3. Diabetes mellitus type 2. 4. Hypertension POSTOPERATIVE DIAGNOSIS: #1 malfunctioning arteriovenous fistula, left transposed basilic. Post angioplasty with drug-eluting balloon. 2. End-stage renal disease on hemodialysis. 3. Diabetes mellitus type 2. 4. Hypertension OPERATION: 1. Needle access into arteriovenous fistula. 2. Angioplasty. 3. Balloon angioplasty with drug-eluting balloon. 4. Angiogram and interpretation. SURGEON: ELIZABETH TAYLOR CERAMIC MOLD DESIGNER: none ANESTHESIA: Moderate Sedation TISSUE REMOVED OR ALTERED: Not applicable. COMPLICATIONS: None ESTIMATED BLOOD LOSS: 5 mL. INTRAOPERATIVE FINDINGS: Of a well founded left arm transposed basilic vein fistula. Very firm initially suggestive of cephalad stenosis. A tight stenosis about half a centimeter long and easily 90% reduction compared to the adjacent lumen was noted at about 25 cm. Just below the humeral head. This was completely eliminated by angioplasty and hopefully will be sustained by the use of a drug eluting balloon. Hard copy documentation is preserved. A substantial collateral was noted and this remained after achievement of hemodynamic correction. Hemodynamic correction is suggested by much appropriately softer fistula at the end of the procedure. PROCEDURE: PROCEDURE: After verifying the procedure and having obtained informed consent, the patient's left arm was prepared with Chlorhexidine and draped out with sterile linen. Local anesthesia infiltrated. Percutaneous access into the fistula ,[ antegrade], obtained about [4 cm] from the arteriovenous anastomosis using a micro puncture needle followed by micro puncture wire and then a micro puncture catheter. A 0.035 [place] wire was inserted, and over this, a 6 Welsh short introducer was placed, angiogram done of the findings as noted. This was followed by a [8-mm] angioplasty balloon . Angioplasty was done at the culprit area initially with a 3 mils syringe and then with an insufflator. Inflating gradually up to 24 atmospheres for 2 minutes.]. Completion angiogram demonstrated [satisfactory result]. Because this stenosis is recurrent and extremely difficult requiring very high pressures believe a drug-eluting balloon is well indicated. An 8 mm drug- eluting balloon was inserted and inflated across the culprit area for 3 minutes according to steamblaster's instructions. The completion angiogram showed 100% resolution of the stenosis. The instrumentation was now withdrawn over hand- held pressure for 10 minutes. Dressings applied, procedure concluded. Exposure time: 1.6 minutes Radiation: 5.62 mcg/cm Contrast: 25 mL of Isovue-300. DICTATING PHYSICIAN: ELIZABETH CASTRO M.D. cc: ELIZABETH CASTRO M.D. ([id number]) >>
[2017-09-11 11:44] VITALS: BP 124/69
--- NOTE | 2017-09-11 16:02 | RADIOLOGY REPORT (SQ) ---
EXAM DESCRIPTION: FISTULAGRAM W/PLASTY COMPLETED DATE/TIME: 09/11/2017 2:10 pm REASON FOR STUDY: T82.858A T82.858A STENOSIS OF OTHER VASCULAR PROSTH DEV/GRFT, INIT COMPARISON: 05/15/2017 FLUOROSCOPY TIME: 1.5 minutes 30 digital images saved to PACS. TECHNIQUE: Intra-operative images acquired during surgical procedure to evaluate progress. NUMBER OF IMAGES: 30 digital images saved to pac's LIMITATIONS: None. FINDINGS: Intra procedural imaging and fluoroscopy during left upper extremity dialysis access evalu ation and plasty by Dr. Chun ramires please see the operative report for further detail IMPRESSION: Intra procedural imaging and fluoro COMMENT: Quality ID [id number]: Final reports for procedures using fluoroscopy that document radiation exp osure indices, or exposure time and number of fluorographic images (if radiation exposure indices are not available) Please consult full operative report of the attending physician for description of the procedure. TECHNICAL DOCUMENTATION: JOB ID: [id number] [email or web address]- All Rights Reserved
== END 2017-09-11 11:57 | disposition home or self-care (01) ==
LOC: CCL 07:16
PROVIDERS: ATTEND Surgery
PROC: 057C3DZ Dilation of Left Basilic Vein with Intraluminal Device, Percutaneous Approach (ICD-10-PCS; principal; 2017-09-11)
DX: T82.858A Stenosis of other vascular prosthetic devices, implants and grafts, initial encounter (principal); Y83.2 Surgical operation with anastomosis, bypass or graft as the cause of abnormal reaction of the patient, or of later complication, without mention of misadventure at the time of the procedure; E11.22 Type 2 diabetes mellitus with diabetic chronic kidney disease; I12.0 Hypertensive chronic kidney disease with stage 5 chronic kidney disease or end stage renal disease; N18.6 End stage renal disease; Z99.2 Dependence on renal dialysis; Z79.82 Long term (current) use of aspirin; Z79.4 Long term (current) use of insulin
CPT/HCPCS: 36415; 85027; 80048; 36902; C1725; C2623; C1752; Q9967; C1769; J2250; J1644 ×2; J3010; J3490

== ENCOUNTER → 2018-03-13 | Outpatient (CLI) | payer MEDICARE, BC ==
[2018-03-13 11:12] LABS: ABSOLUTE BASOPHILS # (AUTO) 0.1 10^3/uL (0.0-0.2); ABSOLUTE EOSINOPHILS # (AUTO) 0.3 10^3/uL (0.0-0.6); ABSOLUTE LYMPHOCYTES (AUTO) 1.6 10^3/uL (0.5-4.7); ABSOLUTE MONOCYTES (AUTO) 0.7 10^3/uL (0.1-1.4); ABSOLUTE NEUT (AUTO) 2.8 10^3/uL (1.7-8.2); BASOPHILS % (AUTO) 1.2 % (0-2); EOSINOPHILS % (AUTO) 4.9 % (0-6); HEMATOCRIT 40.3 % (37.9-51.0); LYMPHOCYTES % (AUTO) 28.7 % (13-45); MEAN CORPUSCULAR HEMOGLOBIN 29.2 pg (27.0-33.4); MEAN CORPUSCULAR HGB CONC 32.2 g/dL (32.0-36.0); MEAN CORPUSCULAR VOLUME 91 fl (80-97); MONOCYTES % (AUTO) 13.5 % (3-13); PLATELET COUNT 231 10^3/uL (150-450); RED BLOOD COUNT 4.45 10^6/uL (4.35-5.55); RED CELL DISTRIBUTION WIDTH 19.9 % (11.5-14.0); SEGMENTED NEUTROPHILS % (AUTO) 51.7 % (42-78); TOTAL CELLS COUNTED % (AUTO) 100 %; WHITE BLOOD COUNT 5.4 10^3/uL (4.0-10.5)
== END ==
LOC: OD 09:57
PROVIDERS: ATTEND Radiology Radiation Oncology
DX: C61 Malignant neoplasm of prostate (principal); R97.20 Elevated prostate specific antigen [PSA]
CPT/HCPCS: 36415; 84153; 85025

== ENCOUNTER 2018-03-14 10:34 | Day surgery (SDC) | payer MEDICARE, BC ==
[2018-03-14] MEDS ORDERED: LIDOCAINE 0.5% INJ-PF (5 MG/ML) 50 ML SDV ONE (11:07)
[2018-03-14] MEDS ORDERED: FENTANYL CITRATE INJ/PF 100 MCG/2 ML AMPUL ONE (11:07)
[2018-03-14] MEDS ORDERED: MIDAZOLAM 2 MG/2 ML INJ ONE (11:07)
[2018-03-14] MEDS ORDERED: HEPARIN SOD (PORCINE) 5,000 UNIT/ML 1 ML SYRINGE ONE (11:07)
--- NOTE | 2018-03-14 12:29 | Discharge Summary ---
Discharge Summary (SDC) - Discharge Final Diagnosis: #1 malfunctioning AV fistula, left brachiocephalic. 2. End-stage renal disease on hemodialysis. 3. Diabetes mellitus type 2. 4. Hypertension. Date of Surgery: 03/14/18 Discharge Date: 03/14/18 Condition: Fair Treatment or Instructions: Discharge home [after recovery per ASU criteria]. Diet , [renal],as tolerated, when fully awake advance as tolerated. Activities within moderation encouraged. Follow up in my office by appointment in about [1 week]. Call for appointment. Leave wounds [covered], [keep clean and dry, until office visit in 1 week]. Hold of on school/work [until evaluation in office]. Meds per med rec. May shower [in 48 hrs], [try to keep operated area as dry as possible]. Referrals: SUSI GONZALEZ MD [Primary Care Provider] - Discharge Diet: Other (Comments) - Renal. Discharge Activity: Activity As Tolerated Report the Following to Your Physician Immediately: Shortness of Breath
--- NOTE | 2018-03-14 12:34 | Operative Report ---
Operative Report DATE OF SURGERY: 03/14/18 PREOPERATIVE DIAGNOSIS: #1 malfunctioning AV fistula, left brachiocephalic. 2. End-stage renal disease on hemodialysis. 3. Diabetes mellitus type 2. 4. Hypertension. POSTOPERATIVE DIAGNOSIS: #1 malfunctioning AV fistula, left brachiocephalic. 2. End-stage renal disease on hemodialysis. 3. Diabetes mellitus type 2. 4. Hypertension. OPERATION: 1. Needle access into fistula. 2. Balloon angioplasty in AV fistula. 3. Leutonix balloon angioplasty in AV fistula. 4. Angiogram and interpretation. SURGEON: ELIZABETH TAYLOR BIOINFORMATICS DEVELOPER: None. ANESTHESIA: Moderate Sedation TISSUE REMOVED OR ALTERED: Not applicable. COMPLICATIONS: None. ESTIMATED BLOOD LOSS: 2 mL. INTRAOPERATIVE FINDINGS: Of a well founded left arm brachiocephalic fistula. Somewhat firm palpation. Angiogram demonstrates a tight stenosis at about 35 cm for about 3 cm in length. A secondary stenosis adjacent to the above 1 cm in length. Both about 80% of the adjacent lumen. Both resolved by angioplasty. A Leutonix drug-eluting balloon used in order to sustain the efficacy for as long as possible. An adjacent collateral, significant is noted. This is present after dilatation but there is reduced in importance. PROCEDURE: PROCEDURE: After verifying the procedure and having obtained informed consent, the patient's left arm was prepared with Chlorhexidine and draped out with sterile linen. Local anesthesia infiltrated. Percutaneous access into the fistula ,[ antegrade], obtained about [4 cm] from the arteriovenous anastomosis using a micro puncture needle followed by micro puncture wire and then a micro puncture catheter. Angiogram demonstrated the aforementioned findings. Angioplasty was elected. A 0.035 [place] wire was inserted, and over this, a 7 Surinamese short introducer was placed, this was followed by a [8-mm ] angioplasty balloon . Angioplasty was Done at the culprit region using an 8 mm, 8 cm long high-pressure balloon. Dilating initially with a 3 mils syringe and then with an insufflator. Insufflating up to 18 rohith in order to conquer a short segment of persisting stenosis. Completion angiogram demonstrated successful result. Given the difficulty of resolving the stenosis a drug-eluting balloon was therefore inserted according to training development director's since instructions and inflated up to 11 rohith at the culprit region for 4 minutes. It was deflated and removed. Hand pressure for 10 minutes. Dressings applied, procedure concluded. Exposure time: 0.2 minutes. Radiation: 15.7 Paula smith. Contrast: 25 mL of Isovue-300, low osmolality. DICTATING PHYSICIAN: ELIZABETH CASTRO M.D. cc: ELIZABETH CASTRO M.D. ([id number]) >>
--- NOTE | 2018-03-14 12:53 | RADIOLOGY REPORT (SQ) ---
EXAM DESCRIPTION: FISTULAGRAM W/PLASTY COMPLETED DATE/TIME: 03/14/2018 12:40 pm REASON FOR STUDY: T82.858A T82.858A STENOSIS OF OTHER VASCULAR PROSTH DEV/GRFT, INIT COMPARISON: 09/11/2017 FLUOROSCOPY TIME: 0.2 minutes 65 digital radiographic images saved to PACS. TECHNIQUE: Intra-operative images acquired during surgical procedure to evaluate progress. NUMBER OF IMAGES: 65 digital radiographic images LIMITATIONS: None. FINDINGS: Intra procedural imaging and fluoro during evaluation and plasty of left upper extremity d ialysis access. Please see Dr. Jones operative report for further details. IMPRESSION: Intra procedural imaging and fluoro COMMENT: Quality ID 145: Final reports for procedures using fluoroscopy that document radiation exp osure indices, or exposure time and number of fluorographic images (if radiation exposure indices are not available) Please consult full operative report of the attending physician for description of the procedure. TECHNICAL DOCUMENTATION: JOB ID: [id number] [employer]- All Rights Reserved Reading location - IP/workstation name: [email or web address]
[2018-03-14 13:47] VITALS: BP 161/72
== END 2018-03-14 13:40 | disposition home or self-care (01) ==
LOC: CCL 10:34
PROVIDERS: ATTEND Surgery
DX: T82.858A Stenosis of other vascular prosthetic devices, implants and grafts, initial encounter (principal); Y83.2 Surgical operation with anastomosis, bypass or graft as the cause of abnormal reaction of the patient, or of later complication, without mention of misadventure at the time of the procedure; I12.0 Hypertensive chronic kidney disease with stage 5 chronic kidney disease or end stage renal disease; E11.22 Type 2 diabetes mellitus with diabetic chronic kidney disease; N18.6 End stage renal disease; Z99.2 Dependence on renal dialysis
CPT/HCPCS: 36902; C1725; C2623; C1752; C1894; Q9967; C1769; J2250; J1644 ×2; J3010; J3490

== ENCOUNTER 2018-06-18 08:00 | Day surgery (SDC) | payer MEDICARE, BC ==
--- NOTE | 2018-06-18 08:48 | RADIOLOGY REPORT (SQ) ---
EXAM DESCRIPTION: CHEST SINGLE VIEW COMPLETED DATE/TIME: 06/18/2018 8:24 am REASON FOR STUDY: PREOP COMPARISON: None. EXAM PARAMETERS: NUMBER OF VIEWS: One view. TECHNIQUE: Single frontal radiographic view of the chest acquired. RADIATION DOSE: NA LIMITATIONS: None. FINDINGS: LUNGS AND PLEURA: There is increase in interstitial markings throughout the lung diaz wh ich could represent chronic interstitial change. MEDIASTINUM AND HILAR STRUCTURES: No masses. Contour normal. HEART AND VASCULAR STRUCTURES: The heart is normal. Uncoiling of the thoracic aorta is noted. BONES: No acute findings. HARDWARE: None in the chest. OTHER: No other significant finding. IMPRESSION: Chronic interstitial changes. Otherwise, no acute disease. TECHNICAL DOCUMENTATION: JOB ID: [id number] [email or web address]- All Rights Reserved Reading location - IP/workstation name: [email or web address]
[2018-06-18 08:53] LABS: HEMATOCRIT 34.8 % (37.9-51.0); MEAN CORPUSCULAR HEMOGLOBIN 32.9 pg (27.0-33.4); MEAN CORPUSCULAR HGB CONC 34.5 g/dL (32.0-36.0); MEAN CORPUSCULAR VOLUME 95 fl (80-97); PLATELET COUNT 176 10^3/uL (150-450); RED BLOOD COUNT 3.65 10^6/uL (4.35-5.55); RED CELL DISTRIBUTION WIDTH 15.4 % (11.5-14.0); WHITE BLOOD COUNT 4.6 10^3/uL (4.0-10.5)
[2018-06-18 09:04] LABS: INTERNATIONAL RATION (INR) 0.98; PROTHROMBIN TIME 13.5 SEC (11.4-15.4)
[2018-06-18 09:20] LABS: ANION GAP 13 (5-19); BLOOD UREA NITROGEN 63 mg/dL (7-20); CALCIUM 9.6 mg/dL (8.4-10.2); CARBON DIOXIDE 26 mmol/L (22-30); CHLORIDE 107 mmol/L (98-107); GLUCOSE 77 mg/dL (75-110); POTASSIUM 4.4 mmol/L (3.6-5.0); SODIUM 146.4 mmol/L (137-145)
[2018-06-18 09:25] LABS: PARTIAL THROMBOPLASTIN TIME 33.8 SEC (23.5-35.8)
[2018-06-18] MEDS ORDERED: LIDOCAINE 0.5% INJ-PF (5 MG/ML) 50 ML SDV ONE (09:44)
[2018-06-18] MEDS ORDERED: MIDAZOLAM 2 MG/2 ML INJ ONE (09:48)
[2018-06-18] MEDS ORDERED: HEPARIN SOD (PORCINE) 5,000 UNIT/ML 1 ML SYRINGE ONE (09:49)
[2018-06-18] MEDS ORDERED: FENTANYL CITRATE INJ/PF 100 MCG/2 ML AMPUL ONE (09:49)
--- NOTE | 2018-06-18 11:53 | PDOC H&P ---
General Chief Complaint: This patient has been noted to have decreased access flows. He is therefore referred across for angiogram and hopefully correction. The objective is prolonged use of his arteriovenous fistula. - Current Medications/Allergies Home Medications: Doxazosin Mesylate 1 tab PO QHS 07/01/14 Aspirin [Aspirin 81 mg Chewable Tablet] 1 tab PO QHS 05/26/15 Insulin Glargine,Hum.rec.anlog [Lantus Solostar] 12 units SQ QPM PRN 10/18/15 B Complex W-C No.20/Folic Acid [Lewis Caps Softgel] 1 tab PO DAILY 08/08/16 Cholecalciferol (Vitamin D3) [Vitamin D3] 2,000 unit PO DAILY 08/08/16 Acetaminophen [Tylenol Extra Strength 500 mg Tablet] 1 tab PO PRN PRN 06/15/18 Calcium Acetate [Phoslo 667 Mg Capsule] 667 mg PO AC 06/15/18 Loratadine [Claritin] 10 mg PO DAILY 06/15/18 Allergies/Adverse Reactions: No Known Allergies Allergy (Verified 06/18/18 09:03) Past Medical History Cardiac Medical History: Denies: Coronary Artery Disease, Myocardial Infarction, Hypertension Pulmonary Medical History: Denies: Asthma, Bronchitis, Chronic Obstructive Pulmonary Disease (COPD), Pneumonia Neurological Medical History: Denies: Seizures Musculoskeltal Medical History: 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 Failed. Left transposed basilic vei Family History Family History: Reviewed & Not Pertinent Parental Family History Reviewed: No Children Family History Reviewed: No Sibling(s) Family History Reviewed.: No Social History Smoking Status: Current Every Day Smoker Physical Exam Vital Signs: Temp Pulse Resp BP Pulse Ox 98.0 F 45 L 16 154/67 H 100 06/18/18 08:58 06/18/18 08:58 06/18/18 08:58 06/18/18 08:58 06/18/18 08:58 Intake & Output 06/17/18 06/18/18 06/19/18 06:59 06:59 06:59 Weight 85 kg Additional comments: The patient is admitted for improvement in his AV fistula. The risks, benefits , expected outcome and alternatives are familiar to him and he wishes to proceed.
--- NOTE | 2018-06-18 11:58 | Discharge Summary ---
Discharge Summary (SDC) - Discharge Final Diagnosis: #1 malfunctioning AV fistula, left transposed basilic. 2. End-stage renal disease on hemodialysis. 3. Diabetes mellitus type 2. 4. Hypertension. Date of Surgery: 06/18/18 Discharge Date: 06/18/18 Condition: Fair Treatment or Instructions: Discharge home [after recovery per ASU criteria]. Diet , [renal],as tolerated, when fully awake advance as tolerated. Activities within moderation encouraged. Follow up in my office by appointment in about [1 week]. Call for appointment. Leave wounds [covered], [keep clean and dry, until hemodialysis]. Hold of on school/work [until evaluation in office]. May shower [in 48 hrs], [try to keep operated area as dry as possible]. Referrals: SUSI GONZALEZ MD [Primary Care Provider] - Discharge Diet: Other (Comments) - Renal, ADA. Respiratory Treatments at Home: Deep Breathing/Coughing Discharge Activity: Activity As Tolerated Report the Following to Your Physician Immediately: Shortness of Breath, Unusual Bleeding
--- NOTE | 2018-06-18 12:05 | Operative Report ---
Operative Report DATE OF SURGERY: 06/18/18 PREOPERATIVE DIAGNOSIS: #1 malfunctioning AV fistula, left transposed basilic. 2. End-stage renal disease on hemodialysis. 3. Diabetes mellitus type 2. 4. Hypertension. POSTOPERATIVE DIAGNOSIS: #1 malfunctioning AV fistula, left transposed basilic. 2. End-stage renal disease on hemodialysis. 3. Diabetes mellitus type 2. 4. Hypertension. OPERATION: 1. Needle access into fistula. 2. Second access and AV fistula. 3. Angioplasty and AV fistula. 4. Drug eluting balloon angioplasty and AV fistula. 5. Angiogram and interpretation. SURGEON: ELIZABETH TAYLOR BROOMCORN SCRAPER: None. ANESTHESIA: Moderate Sedation TISSUE REMOVED OR ALTERED: Not applicable. COMPLICATIONS: None. ESTIMATED BLOOD LOSS: 5 mL. INTRAOPERATIVE FINDINGS: Of a well founded left arm transposed basilic vein fistula. Somewhat firm, suggestive of cephalad stenosis. Referral impression of decreased flow is also suggestive of inflow disease. Based on the angiogram there may be some inflow stenosis. Nevertheless a tight outflow lesion at about the chest wall was the culprit lesion, about 3 cm long and up to 90% of the adjacent lumen. This was eradicated by angioplasty and hopefully will be sustained with a drug-eluting balloon. The possible inflow disease which is far less hemodynamically important may need to be addressed and we will preemptively plan to return in a few weeks. PROCEDURE: PROCEDURE: After verifying the procedure and having obtained informed consent, the patient's left arm was prepared with Chlorhexidine and draped out with sterile linen. Local anesthesia infiltrated. Percutaneous access was gained in a retrograde fashion starting about 15 cm from the anastomosis. This allowed introduction of the inner portion of a micropuncture catheter which was used to do an angiogram. This demonstrated I suggested inflow, perianastomotic issue. Based on the likelihood of hemodynamic significance antegrade access was elected. Percutaneous access into the fistula ,[ antegrade], obtained about [4 cm] from the arteriovenous anastomosis using a micro puncture needle followed by micro puncture wire and then a micro puncture catheter. Angiogram demonstrated the aforementioned findings. Angioplasty was elected. A 0.035 [place] wire was inserted, and over this, a 7 Luxembourgish short introducer was placed, this was followed by a [8-mm ] angioplasty balloon . Angioplasty was At the culprit area and also proximally for another 3-4 cm. A vein valve was visible at the segment and there appeared to be some stenosis in the area.. Inflating up to 14 atmospheres for 3-4 minutes at a time.]. Based on the last angiogram being just a few months ago it was decided to do a drug-eluting balloon. A drug-eluting balloon, 9 mm in diameter was inserted across the culprit area and inflated up to 11 rohith for 4 minutes. It was deflated and serial dilatations done more proximally. Completion angiogram demonstrated [satisfactory result]. The instrumentation was now withdrawn over Hand held pressure for 10 minutes. Dressings applied, procedure concluded. DICTATING PHYSICIAN: ELIZABETH CASTRO M.D. cc: ELIZABETH CASTRO M.D. ([id number]) >>
--- NOTE | 2018-06-18 12:18 | RADIOLOGY REPORT (SQ) ---
EXAM DESCRIPTION: FISTULAGRAM W/PLASTY COMPLETED DATE/TIME: 06/18/2018 11:19 am REASON FOR STUDY: T82.858A T82.858A STENOSIS OF OTHER VASCULAR PROSTH DEV/GRFT, INIT Z79.01 LONG T ERM (CURRENT) USE OF ANTICOAGULANTS COMPARISON: None. FLUOROSCOPY TIME: 0.3 minutes 158 images saved to PACS. TECHNIQUE: Intra-operative images acquired during surgical procedure to evaluate progress. NUMBER OF IMAGES: 158 LIMITATIONS: None. FINDINGS: Images from arteriography and angioplasty left upper extremity graft performed by Dr. Jose rolon. IMPRESSION: IMAGE(S) OBTAINED DURING PROCEDURE. COMMENT: Quality ID [id number]: Final reports for procedures using fluoroscopy that document radiation exp osure indices, or exposure time and number of fluorographic images (if radiation exposure indices are not available) Please consult full operative report of the attending physician for description of the procedure. TECHNICAL DOCUMENTATION: JOB ID: [id number] [employer]- All Rights Reserved Reading location - IP/workstation name: [email or web address]
--- NOTE | 2018-06-18 13:07 | EKG REPORT ---
SEVERITY:- ABNORMAL ECG - SINUS BRADYCARDIA SECOND DEGREE AVB, 2:1 CONDUCTION. PROBABLE LEFT ATRIAL ABNORMALITY LEFT ANTERIOR FASCICULAR BLOCK BORDERLINE R WAVE PROGRESSION, ANTERIOR LEADS : Confirmed by: Akhil Ramirez MD 18-Jun-2018 13:07:28
[2018-06-18 13:20] VITALS: BP 166/64
== END 2018-06-18 13:05 | disposition home or self-care (01) ==
LOC: CCL 08:00
PROVIDERS: ATTEND Surgery
DX: T82.858A Stenosis of other vascular prosthetic devices, implants and grafts, initial encounter (principal); Z99.2 Dependence on renal dialysis; I12.0 Hypertensive chronic kidney disease with stage 5 chronic kidney disease or end stage renal disease; E11.22 Type 2 diabetes mellitus with diabetic chronic kidney disease; N18.6 End stage renal disease; Y83.2 Surgical operation with anastomosis, bypass or graft as the cause of abnormal reaction of the patient, or of later complication, without mention of misadventure at the time of the procedure; Z79.82 Long term (current) use of aspirin; Z79.899 Other long term (current) drug therapy; Z79.4 Long term (current) use of insulin
CPT/HCPCS: 36415; 85027; 85610; 85730; 80048; 36902; 71045; 93005; 93010; C1725; C2623; C1752; C1894; Q9967; C1769; J2250; J1644 ×2; J3010; J3490

== ENCOUNTER 2018-07-02 08:47 | Day surgery (SDC) | payer MEDICARE, BC ==
[~2018-07-02 08:47] MED LIST changes: -OXYCODONE-ACETAMINOPHEN 5-325 MG TABLET PO PRN
[2018-07-02] MEDS ORDERED: DIAZEPAM 5 MG TABLET ONE (09:10)
[2018-07-02] MEDS ORDERED: OXYCODONE-ACETAMINOPHEN 5-325 MG TABLET ONE (09:12)
[2018-07-02] MEDS ORDERED: LIDOCAINE 0.5% INJ-PF (5 MG/ML) 50 ML SDV ONE (09:23)
[2018-07-02] MEDS ORDERED: MIDAZOLAM 2 MG/2 ML INJ ONE (09:24)
[2018-07-02] MEDS ORDERED: HEPARIN SOD (PORCINE) 5,000 UNIT/ML 1 ML SYRINGE ONE (09:24)
[2018-07-02] MEDS ORDERED: FENTANYL CITRATE INJ/PF 100 MCG/2 ML AMPUL ONE (09:24)
[2018-07-02 09:33] LABS: HEMATOCRIT 33.9 % (37.9-51.0); HEMOGLOBIN 11.5 g/dL (13.5-17.0); MEAN CORPUSCULAR HEMOGLOBIN 32.9 pg (27.0-33.4); MEAN CORPUSCULAR HGB CONC 33.9 g/dL (32.0-36.0); MEAN CORPUSCULAR VOLUME 97 fl (80-97); PLATELET COUNT 195 10^3/uL (150-450); RED BLOOD COUNT 3.49 10^6/uL (4.35-5.55); RED CELL DISTRIBUTION WIDTH 14.7 % (11.5-14.0); WHITE BLOOD COUNT 4.6 10^3/uL (4.0-10.5)
[2018-07-02 09:56] LABS: ANION GAP 13 (5-19); BLOOD UREA NITROGEN 57 mg/dL (7-20); CALCIUM 9.6 mg/dL (8.4-10.2); CARBON DIOXIDE 25 mmol/L (22-30); CHLORIDE 105 mmol/L (98-107); GLUCOSE 78 mg/dL (75-110); POTASSIUM 4.4 mmol/L (3.6-5.0); SODIUM 142.6 mmol/L (137-145)
--- NOTE | 2018-07-02 10:52 | PDOC H&P ---
General Chief Complaint: The patient was found to have an proximal stenosis of his last angiogram. Contrast load and time did not permit intervention at that time. He is therefore back for addressing the inflow issue. - Current Medications/Allergies Home Medications: Doxazosin Mesylate 1 tab PO QHS 07/01/14 Aspirin [Aspirin 81 mg Chewable Tablet] 1 tab PO QHS 05/26/15 Insulin Glargine,Hum.rec.anlog [Lantus Solostar] 12 units SQ QPM PRN 10/18/15 B Complex W-C No.20/Folic Acid [[place] Caps Softgel] 1 tab PO DAILY 08/08/16 Cholecalciferol (Vitamin D3) [Vitamin D3] 2,000 unit PO DAILY 08/08/16 Acetaminophen [Tylenol Extra Strength 500 mg Tablet] 1 tab PO PRN PRN 06/15/18 Calcium Acetate [Phoslo 667 Mg Capsule] 667 mg PO AC 06/15/18 Loratadine [Claritin] 10 mg PO DAILY 06/15/18 Allergies/Adverse Reactions: No Known Allergies Allergy (Verified 06/18/18 09:03) Past Medical History Cardiac Medical History: Denies: Coronary Artery Disease, Myocardial Infarction, Hypertension Pulmonary Medical History: Denies: Asthma, Bronchitis, Chronic Obstructive Pulmonary Disease (COPD), Pneumonia Neurological Medical History: Denies: Seizures Musculoskeltal Medical History: 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 Failed. Left transposed basilic vei Family History Family History: Reviewed & Not Pertinent Parental Family History Reviewed: No Children Family History Reviewed: No Sibling(s) Family History Reviewed.: No Social History Smoking Status: Never Smoker Physical Exam Vital Signs: Intake & Output 07/01/18 07/02/18 07/03/18 06:59 06:59 06:59 Weight 85 kg Additional comments: Constitutional: Well-developed well-nourished -Guyanese gentleman. No apparent acute distress. Eyes: Mucous membranes pink and moist, pupils equal and reactive to light. Conjunctiva normal. Cornea normal. ENT: Hearing grossly normal. External pinna normal to inspection. Tongue normal to inspection. Cardiac: Heart sounds normal.. Respiratory breath sounds are present bilaterally, normal. Normal respiratory effort. Psychiatric: Judgment, memory, insight seem normal. Mood is pleasant and appropriate. Extremities: Upper extremities show normal range of movement. Pulses present noted to the radial arteries. Capillary refill normal. No cyanosis noted. No muscle wasting noted. Left arm transposed basilic vein fistula noted. Impression/Plan Impression: #1 malfunctioning arteriovenous fistula, left transposed basilic. 2. End-stage renal disease. 3. Diabetes mellitus type 2. 4. Hypertension. Plan: In this patient with a functional left arm fistula, improvement as needed. The object is prolonged fistula you use and function for hemodialysis.
--- NOTE | 2018-07-02 10:54 | Discharge Summary ---
Discharge Summary (SDC) - Discharge Final Diagnosis: #1 malfunctioning arteriovenous fistula, left transposed basilic. 2. End-stage renal disease. 3. Diabetes mellitus type 2. 4. Hypertension. Date of Surgery: 07/02/18 Discharge Date: 07/02/18 Condition: Fair Treatment or Instructions: Discharge home [after recovery per ASU criteria]. Diet , [renal],as tolerated, when fully awake advance as tolerated. Activities within moderation encouraged. Follow up in my office by appointment in about [1 month]. Call for appointment. Leave wounds [covered], [keep clean and dry, until hemodialysis]. Meds per med rec. Hold of on school/work [until evaluation in office]. May shower [in 48 hrs], [try to keep operated area as dry as possible]. Referrals: SUSI GONZALEZ MD [Primary Care Provider] - Discharge Diet: Other (Comments) - Renal. Respiratory Treatments at Home: Deep Breathing/Coughing Discharge Activity: Activity As Tolerated Report the Following to Your Physician Immediately: Shortness of Breath, Unusual Bleeding
--- NOTE | 2018-07-02 10:59 | Operative Report ---
Operative Report DATE OF SURGERY: 07/02/18 PREOPERATIVE DIAGNOSIS: #1 malfunctioning arteriovenous fistula, left transposed basilic. 2. End-stage renal disease. 3. Diabetes mellitus type 2. 4. Hypertension. POSTOPERATIVE DIAGNOSIS: #1 malfunctioning arteriovenous fistula, left transposed basilic. 2. End-stage renal disease. 3. Diabetes mellitus type 2. 4. Hypertension. OPERATION: 1. Needle introduction into fistula. 2. Angioplasty and fistula. 3. Angiogram and interpretation. SURGEON: ELIZABETH TAYLOR PARALEGAL LEGAL SECRETARY: None. ANESTHESIA: Moderate Sedation TISSUE REMOVED OR ALTERED: Not applicable. COMPLICATIONS: None. ESTIMATED BLOOD LOSS: 2 mL. INTRAOPERATIVE FINDINGS: Of a well founded left arm transposed basilic vein fistula. Actually slightly firmer than expected, quite normal. Angiogram showed a tight stenosis at about 6 cm from the anastomosis. Estimated to be about 70% of the adjacent lumen. Completely resolved with angioplasty. It seems to be adjacent to a vein valve. In addition cephalad restenosis is suggested. This was intervened with a drug-eluting balloon about 2-3 weeks ago. For the time being it will be observed. It does not seem to be hemodynamically significant at this time. PROCEDURE: PROCEDURE: After verifying the procedure and having obtained informed consent, the patient's left arm and forearm were prepared with Chlorhexidine and draped out with sterile linen. Local anesthesia infiltrated. Percutaneous access into the fistula ,[retrograde], obtained about [20 cm] from the arteriovenous anastomosis using a micro puncture needle followed by micro puncture wire and then a micro puncture catheter. Angiogram demonstrated the aforementioned findings. Angioplasty was elected. A 0.035 [place] wire was inserted, and over this, a 5 Mongolian short introducer was placed, a Kumpe catheter was inserted and used to manipulate into the artery. Angiogram done as above. This was followed by a 6 angioplasty balloon . Angioplasty was now done at the culprit lesion. This was done very carefully and using a 3 mils syringe for 3 minutes. Angiogram demonstrated successful outcome. T Completion angiogram demonstrated [satisfactory result]. The instrumentation was now withdrawn over hand pressure for 10 minutes . Dressings applied, procedure concluded. Exposure time: 4.3 minutes Radiation: 7.63 Paula smith. Contrast: 25 mL of Isovue-M 300 low osmolality. DICTATING PHYSICIAN: ELIZABETH CASTRO M.D. cc: ELIZABETH CASTRO M.D. ([id number]) >>
--- NOTE | 2018-07-02 11:49 | RADIOLOGY REPORT (SQ) ---
EXAM DESCRIPTION: FISTULAGRAM W/PLASTY COMPLETED DATE/TIME: 07/02/2018 10:27 am REASON FOR STUDY: T82.858A T82.858A STENOSIS OF OTHER VASCULAR PROSTH DEV/GRFT, INIT COMPARISON: 06/18/2018 FLUOROSCOPY TIME: 4.3 minutes 99 digital images saved to PACS. TECHNIQUE: Intra-operative images acquired during surgical procedure to evaluate progress. NUMBER OF IMAGES: 99 digital images saved to pac's LIMITATIONS: None. FINDINGS: Intra procedural imaging and fluoro during evaluation and plasty of left upper extremity d ialysis graft by Dr. Jones IMPRESSION: Intra procedural imaging and fluoro COMMENT: Quality ID 145: Final reports for procedures using fluoroscopy that document radiation exp osure indices, or exposure time and number of fluorographic images (if radiation exposure indices are not available) Please consult full operative report of the attending physician for description of the procedure. TECHNICAL DOCUMENTATION: JOB ID: [id number] [employer] All Rights Reserved Reading location - IP/workstation name: [email or web address]
[2018-07-02 12:02] VITALS: BP 162/67
== END 2018-07-02 12:00 | disposition home or self-care (01) ==
LOC: CCL 08:47
PROVIDERS: ATTEND Surgery
DX: T82.858A Stenosis of other vascular prosthetic devices, implants and grafts, initial encounter (principal); Y83.2 Surgical operation with anastomosis, bypass or graft as the cause of abnormal reaction of the patient, or of later complication, without mention of misadventure at the time of the procedure; E11.22 Type 2 diabetes mellitus with diabetic chronic kidney disease; I12.0 Hypertensive chronic kidney disease with stage 5 chronic kidney disease or end stage renal disease; N18.6 End stage renal disease; M51.36 Other intervertebral disc degeneration, lumbar region; M17.0 Bilateral primary osteoarthritis of knee; Z79.899 Other long term (current) drug therapy; Z79.82 Long term (current) use of aspirin; Z79.4 Long term (current) use of insulin
CPT/HCPCS: 36415; 85027; 80048; 36902; C1752; C1887; C1725; C1769; J2250; J1644 ×2; A9270 ×2; J3010; J3490

== ENCOUNTER → 2018-09-17 | Outpatient (CLI) | payer MEDICARE, BC ==
[2018-09-17 12:19] LABS: ABSOLUTE EOSINOPHILS # (AUTO) 0.2 10^3/uL (0.0-0.6); ABSOLUTE MONOCYTES (AUTO) 0.6 10^3/uL (0.1-1.4); ABSOLUTE NEUT (AUTO) 2.3 10^3/uL (1.7-8.2); BASOPHILS % (AUTO) 0.6 % (0-2); EOSINOPHILS % (AUTO) 3.8 % (0-6); HEMATOCRIT 34.1 % (37.9-51.0); HEMOGLOBIN 11.7 g/dL (13.5-17.0); LYMPHOCYTES % (AUTO) 25.4 % (13-45); MEAN CORPUSCULAR HEMOGLOBIN 34.1 pg (27.0-33.4); MEAN CORPUSCULAR HGB CONC 34.2 g/dL (32.0-36.0); MEAN CORPUSCULAR VOLUME 100 fl (80-97); MONOCYTES % (AUTO) 13.8 % (3-13); PLATELET COUNT 184 10^3/uL (150-450); RED BLOOD COUNT 3.42 10^6/uL (4.35-5.55); RED CELL DISTRIBUTION WIDTH 13.9 % (11.5-14.0); SEGMENTED NEUTROPHILS % (AUTO) 56.4 % (42-78); TOTAL CELLS COUNTED % (AUTO) 100 %; WHITE BLOOD COUNT 4.1 10^3/uL (4.0-10.5)
== END ==
LOC: OD 11:09
PROVIDERS: ATTEND Internal Medicine
DX: C61 Malignant neoplasm of prostate (principal); R97.20 Elevated prostate specific antigen [PSA]; I10 Essential (primary) hypertension; E11.9 Type 2 diabetes mellitus without complications
CPT/HCPCS: 36415; 83036; 84153; 85025

== ENCOUNTER 2019-03-25 08:22 | Day surgery (SDC) | payer MEDICARE ==
[~2019-03-25 08:22] MED LIST changes: +DIAZEPAM 5 MG TABLET ONE; +OXYCODONE-ACETAMINOPHEN 5-325 MG TABLET ONE; +OXYCODONE-ACETAMINOPHEN 5-325 MG TABLET PO PRN
[2019-03-25 09:36] LABS: ABSOLUTE BASOPHILS # (AUTO) 0.1 10^3/uL (0.0-0.2); ABSOLUTE EOSINOPHILS # (AUTO) 0.2 10^3/uL (0.0-0.6); ABSOLUTE LYMPHOCYTES (AUTO) 1.3 10^3/uL (0.5-4.7); ABSOLUTE MONOCYTES (AUTO) 0.7 10^3/uL (0.1-1.4); ABSOLUTE NEUT (AUTO) 1.9 10^3/uL (1.7-8.2); BASOPHILS % (AUTO) 1.2 % (0-2); HEMATOCRIT 37.8 % (37.9-51.0); HEMOGLOBIN 12.5 g/dL (13.5-17.0); LYMPHOCYTES % (AUTO) 31.9 % (13-45); MEAN CORPUSCULAR HEMOGLOBIN 32.3 pg (27.0-33.4); MEAN CORPUSCULAR HGB CONC 33.1 g/dL (32.0-36.0); MEAN CORPUSCULAR VOLUME 98 fl (80-97); MONOCYTES % (AUTO) 17.2 % (3-13); PLATELET COUNT 184 10^3/uL (150-450); RED BLOOD COUNT 3.86 10^6/uL (4.35-5.55); RED CELL DISTRIBUTION WIDTH 14.5 % (11.5-14.0); SEGMENTED NEUTROPHILS % (AUTO) 45.7 % (42-78); TOTAL CELLS COUNTED % (AUTO) 100 %; WHITE BLOOD COUNT 4.1 10^3/uL (4.0-10.5)
[2019-03-25] MEDS ORDERED: LIDOCAINE 0.5% INJ-PF (5 MG/ML) 50 ML SDV ONE (10:39)
[2019-03-25] MEDS ORDERED: FENTANYL CITRATE INJ/PF 100 MCG/2 ML AMPUL ONE (10:40)
[2019-03-25] MEDS ORDERED: HEPARIN SOD (PORCINE) 5,000 UNIT/ML 1 ML SYRINGE ONE (10:40)
[2019-03-25] MEDS ORDERED: MIDAZOLAM 2 MG/2 ML INJ ONE (10:40)
[2019-03-25 11:26] LABS: ANION GAP 12 (5-19); BLOOD UREA NITROGEN 68 mg/dL (7-20); CALCIUM 9.5 mg/dL (8.4-10.2); CARBON DIOXIDE 26 mmol/L (22-30); CHLORIDE 105 mmol/L (98-107); GLUCOSE 71 mg/dL (75-110); POTASSIUM 4.5 mmol/L (3.6-5.0); SODIUM 143.4 mmol/L (137-145)
--- NOTE | 2019-03-25 12:06 | Discharge Summary ---
Discharge Summary (SDC) - Discharge Final Diagnosis: #1 malfunctioning arteriovenous fistula, left transposed basilic. 2. End-stage renal disease on hemodialysis. 3. Diabetes mellitus type 2. 4 hypertension. Date of Surgery: 03/25/19 Discharge Date: 03/25/19 Condition: Good Treatment or Instructions: Discharge home [after recovery per ASU criteria]. Diet , [renal],as tolerated, when fully awake advance as tolerated. Activities within moderation encouraged. Follow up in my office by appointment in about [1 month. Call for appointment. Leave wounds [covered], [keep clean and dry, until hemodialysis . Meds per med rec. May shower [in 48 hrs], [try to keep operated area as dry as possible]. Referrals: SUSI GONZALEZ MD [Primary Care Provider] - Discharge Diet: Other (Comments) - Renal, diabetic. Respiratory Treatments at Home: Deep Breathing/Coughing Discharge Activity: Activity As Tolerated
--- NOTE | 2019-03-25 12:12 | Operative Report ---
Operative Report DATE OF SURGERY: 03/25/19 PREOPERATIVE DIAGNOSIS: #1 malfunctioning arteriovenous fistula, left transposed basilic. 2. End-stage renal disease on hemodialysis. 3. Diabetes mellitus type 2. 4 hypertension. POSTOPERATIVE DIAGNOSIS: #1 malfunctioning arteriovenous fistula, left transposed basilic. 2. End-stage renal disease on hemodialysis. 3. Diabetes mellitus type 2. 4 hypertension. OPERATION: 1. Needle access into the fistula. 2. Angioplasty. 3. Angiogram and interpretation. SURGEON: ELIZABETH TAYLOR PRESCHOOL SUBSTITUTE TEACHER: None. ANESTHESIA: Moderate Sedation TISSUE REMOVED OR ALTERED: Not applicable. COMPLICATIONS: None. ESTIMATED BLOOD LOSS: 2 mL. INTRAOPERATIVE FINDINGS: Of a well founded left arm transposed basilic fistula. Somewhat firm suggesting cephalad stenosis. Angiogram was concordant demonstrating a 90% 0.5 cm long stenosis at the cephalic junction. This was completely corrected with an 8 mm angioplasty. Other chain of leg times stenosis were noted in the first 8 cm after the cephalic subclavian junction, these were also addressed successfully. In addition there is a relatively small area of stenosis about 7 cm from the anastomosis, just proximal to ectasia and this represents about 30% of the adjacent lumen. This may need to be addressed at a later date. PROCEDURE: PROCEDURE: After verifying the procedure and having obtained informed consent, the patient's left arm was prepared with Chlorhexidine and draped out with sterile linen. Local anesthesia infiltrated. Percutaneous access into the fistula ,[ antegrade], obtained about [2 cm] from the arteriovenous anastomosis using a micro puncture needle followed by micro puncture wire and then a micro puncture catheter. Angiogram demonstrated the aforementioned findings. Angioplasty was elected. A 0.035 [place] wire was inserted, and over this, a 6 Arabic short introducer was placed, this was followed by a [7-mm] angioplasty balloon . Angioplasty was Done at the cephalic subclavian junction and the upper fistula . Inflating using a 3 mils syringe for 1 to 2 minutes at a time.]. The angiogram showed improvement. A 8 mm angioplasty balloon was now used to dilate the same area in the same fashion. Completion angiogram demonstrated [satisfactory result]. The instrumentation was now withdrawn over hand pressure for 10 minutes. Dressings applied. Procedure concluded. DICTATING PHYSICIAN: ELIZABETH CASTRO M.D. cc: ELIZABETH CASTRO M.D. ([id number]) >>
--- NOTE | 2019-03-25 12:15 | RADIOLOGY REPORT (SQ) ---
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 FLUOROSCOPY TIME: 0.6 minutes 56 images saved to PACS. TECHNIQUE: Intra-operative images acquired during surgical procedure to evaluate progress. NUMBER OF IMAGES: 56 LIMITATIONS: None. FINDINGS: Selected scintigraphic images from upper extremity venography and angioplasty. IMPRESSION: IMAGE(S) OBTAINED DURING PROCEDURE. COMMENT: Quality ID 145: Final reports for procedures using fluoroscopy that document radiation exp osure indices, or exposure time and number of fluorographic images (if radiation exposure indices are not available) Please consult full operative report of the attending physician for description of the procedure. TECHNICAL DOCUMENTATION: JOB ID: [id number] [employer]- All Rights Reserved Reading location - IP/workstation name: [email or web address]
--- NOTE | 2019-03-25 12:15 | PDOC H&P ---
General Chief Complaint: This patient was referred from dialysis for a malfunctioning AV fistula. - Diagnosis (1) Diabetes mellitus type 2 in nonobese Is this a Current Diagnosis?: Yes (2) ESRD (end stage renal disease) Is this a Current Diagnosis?: Yes (3) Hypertension Is this a Current Diagnosis?: Yes (4) Malfunction of arteriovenous dialysis fistula Is this a Current Diagnosis?: Yes - Current Medications/Allergies Home Medications: Doxazosin Mesylate 1 tab PO QHS 07/01/14 Aspirin [Aspirin 81 mg Chewable Tablet] 1 tab PO QHS 05/26/15 Insulin Glargine,Hum.rec.anlog [Lantus Solostar] 12 units SQ QPM PRN 10/18/15 B Complex W-C No.20/Folic Acid [[place] Caps Softgel] 1 tab PO DAILY 08/08/16 Cholecalciferol (Vitamin D3) [Vitamin D3] 2,000 unit PO DAILY 08/08/16 Acetaminophen [Tylenol Extra Strength 500 mg Tablet] 1 tab PO PRN PRN 06/15/18 Calcium Acetate [Phoslo 667 mg Capsule] 667 mg PO AC 06/15/18 Loratadine [Claritin] 10 mg PO DAILY 06/15/18 Allergies/Adverse Reactions: No Known Allergies Allergy (Verified 06/18/18 09:03) Past Medical History Cardiac Medical History: Denies: Coronary Artery Disease, Myocardial Infarction, Hypertension Pulmonary Medical History: Denies: Asthma, Bronchitis, Chronic Obstructive Pulmonary Disease (COPD), Pneumonia Neurological Medical History: Denies: Seizures Musculoskeltal Medical History: 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 Failed. Left transposed basilic vei Family History Family History: Reviewed & Not Pertinent Parental Family History Reviewed: No Children Family History Reviewed: No Sibling(s) Family History Reviewed.: No Social History Smoking Status: Never Smoker Physical Exam Vital Signs: Temp Pulse Resp BP Pulse Ox 98.2 F 47 L 18 188/64 H 100 03/25/19 08:45 03/25/19 08:45 03/25/19 08:45 03/25/19 08:45 03/25/19 08:45 Intake & Output 03/24/19 03/25/19 03/26/19 06:59 06:59 06:59 Weight 85.729 kg Additional comments: Constitutional: Well-developed well-nourished -[place] gentleman. No apparent acute distress. Eyes: Mucous membranes pink and moist, pupils equal and reactive to light. Conjunctiva normal. ENT: Hearing grossly normal. External pinna normal to inspection. Teeth missing tongue normal to inspection. Cardiac: Heart sounds normal. Respiratory: Normal respiratory effort. Psychiatric: Judgment, memory, insight seem normal. Mood is pleasant and appropriate. Extremities: Upper extremities show normal range of movement. Pulses present noted to the radial arteries. Capillary refill normal. No cyanosis noted. No muscle wasting noted. There is sided transposed basilic fistula noted. Somewhat firm suggesting cephalad stenosis. Impression/Plan Plan: The fistula is recommended for intervention. The opportunities to improve fistula function and prolonged use. The patient is familiar with the procedure and he wishes
--- NOTE | 2019-03-25 12:15 | RADIOLOGY REPORT (SQ) ---
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 FLUOROSCOPY TIME: 0.6 minutes 56 images saved to PACS. TECHNIQUE: Intra-operative images acquired during surgical procedure to evaluate progress. NUMBER OF IMAGES: 56 LIMITATIONS: None. FINDINGS: Selected scintigraphic images from upper extremity venography and angioplasty. IMPRESSION: IMAGE(S) OBTAINED DURING PROCEDURE. COMMENT: Quality ID 145: Final reports for procedures using fluoroscopy that document radiation exp osure indices, or exposure time and number of fluorographic images (if radiation exposure indices are not available) Please consult full operative report of the attending physician for description of the procedure. TECHNICAL DOCUMENTATION: JOB ID: [id number] [employer]- All Rights Reserved Reading location - IP/workstation name: [email or web address]
[2019-03-25 13:23] VITALS: BP 148/69
== END 2019-03-25 13:25 | disposition home or self-care (01) ==
LOC: CCL 08:22
PROVIDERS: ATTEND Surgery
DX: T82.858A Stenosis of other vascular prosthetic devices, implants and grafts, initial encounter (principal); Y83.2 Surgical operation with anastomosis, bypass or graft as the cause of abnormal reaction of the patient, or of later complication, without mention of misadventure at the time of the procedure; E11.22 Type 2 diabetes mellitus with diabetic chronic kidney disease; I12.0 Hypertensive chronic kidney disease with stage 5 chronic kidney disease or end stage renal disease; N18.6 End stage renal disease; Z99.2 Dependence on renal dialysis; Z79.82 Long term (current) use of aspirin
CPT/HCPCS: 36415; 85025; 80048; 36907; 36902; C1725 ×2; C1752; Q9967; C1769; J1644 ×2; A9270 ×2; J3490; J2250; J3010

== ENCOUNTER → 2019-04-19 | Outpatient (CLI) | payer MEDICARE ==
--- NOTE | 2019-04-21 00:02 | EKG REPORT ---
SEVERITY:- ABNORMAL ECG - SINUS RHYTHM WITH 1ST DEGREE AV BLOCK LEFT AXIS DEVIATION BORDERLINE T ABNORMALITIES, INFERIOR LEADS : Confirmed by: José Miguel Guerra 21-Apr-2019 00:02:11
== END ==
LOC: OD 14:02
PROVIDERS: ATTEND Physician Assistant Medical
DX: R00.1 Bradycardia, unspecified (principal)
CPT/HCPCS: 93005; 93010

== ENCOUNTER 2020-07-07 11:31 | Inpatient (IN) | payer MEDICARE ==
[2020-07-07 11:58] LABS: ABSOLUTE BASOPHILS # (AUTO) 0.1 10^3/uL (0.0-0.2); ABSOLUTE EOSINOPHILS # (AUTO) 0.2 10^3/uL (0.0-0.6); ABSOLUTE LYMPHOCYTES (AUTO) 0.9 10^3/uL (0.5-4.7); ABSOLUTE MONOCYTES (AUTO) 0.6 10^3/uL (0.1-1.4); ABSOLUTE NEUT (AUTO) 4.8 10^3/uL (1.7-8.2); BASOPHILS % (AUTO) 1.1 % (0-2); EOSINOPHILS % (AUTO) 2.4 % (0-6); HEMATOCRIT 31.2 % (37.9-51.0); HEMOGLOBIN 10.4 g/dL (13.5-17.0); LYMPHOCYTES % (AUTO) 13.9 % (13-45); MEAN CORPUSCULAR HEMOGLOBIN 33.4 pg (27.0-33.4); MEAN CORPUSCULAR HGB CONC 33.4 g/dL (32.0-36.0); MEAN CORPUSCULAR VOLUME 100 fl (80-97); MONOCYTES % (AUTO) 9.2 % (3-13); PLATELET COUNT 129 10^3/uL (150-450); RED BLOOD COUNT 3.11 10^6/uL (4.35-5.55); RED CELL DISTRIBUTION WIDTH 16.9 % (11.5-14.0); SEGMENTED NEUTROPHILS % (AUTO) 73.4 % (42-78); TOTAL CELLS COUNTED % (AUTO) 100 %; WHITE BLOOD COUNT 6.5 10^3/uL (4.0-10.5)
[2020-07-07 12:24] LABS: ALKALINE PHOSPHATASE 146 U/L (38-126); ASPARTATE AMINO TRANSFERASE 24 U/L (17-59); BILIRUBIN,DIRECT 1.1 mg/dL (0.0-0.4); BILIRUBIN,TOTAL 1.2 mg/dL (0.2-1.3); CREATINE KINASE 263 U/L (55-170); GLUCOSE 86 mg/dL (75-110); TOTAL PROTEIN 7.2 g/dL (6.3-8.2)
--- NOTE | 2020-07-07 12:27 | RADIOLOGY REPORT (SQ) ---
EXAM DESCRIPTION: CHEST SINGLE VIEW IMAGES COMPLETED DATE/TIME: 07/07/2020 11:01 am REASON FOR STUDY: sob COMPARISON: Chest radiograph 06/18/2018 EXAM PARAMETERS: NUMBER OF VIEWS: One view. TECHNIQUE: Single frontal radiographic view of the chest acquired. RADIATION DOSE: NA LIMITATIONS: None. FINDINGS: LUNGS AND PLEURA: Chronic pleural and parenchymal scarring in the periphery of both lungs, stable from prior. Lungs are hyperinflated. No focal consolidation. No pleural effusion or pneumo thorax. MEDIASTINUM AND HILAR STRUCTURES: No masses. Contour normal. HEART AND VASCULAR STRUCTURES: Moderate cardiomegaly, stable. No pulmonary vascular congestion. BONES: No acute findings. HARDWARE: Left axillary vascular stent new from prior. OTHER: No other significant finding. IMPRESSION: No acute cardiopulmonary disease. Chronic pleural and parenchymal scarring probably rep resenting underlying pulmonary fibrosis, unchanged in appearance from prior. TECHNICAL DOCUMENTATION: JOB ID: [id number] 2010 [employer]- All Rights Reserved Reading location - IP/workstation name: [email or web address]
[2020-07-07 12:30] LABS: ANION GAP 18 (5-19); CARBON DIOXIDE 14 mmol/L (22-30); CHLORIDE 116 mmol/L (98-107)
[2020-07-07 12:36] LABS: CREATINE KINASE MB 7.11 ng/mL (<4.55)
[2020-07-07 12:41] LABS: POTASSIUM 6.7 mmol/L (3.6-5.0); TROPONIN I 0.16 ng/mL
[2020-07-07] MEDS ORDERED: CALCIUM GLUCONATE 1000 MG/10 ML INJ IV ONE (12:42)
[2020-07-07 12:43] LABS: BLOOD UREA NITROGEN 169 mg/dL (7-20)
[2020-07-07] MEDS ORDERED: INSULIN REG, HUMAN 100 UNIT/ML 3 ML VIAL (PYX) IV ONE (12:43)
[2020-07-07] MEDS ORDERED: DEXTROSE 50%-WATER 25 GM/50 ML DISP.SYRIN IV ONE ×2 (12:43→18:00)
[2020-07-07] MEDS ORDERED: NORMAL SALINE 1000 ML 1,000 ML IV PRN (13:33)
[2020-07-07] MEDS ORDERED: DIPHENHYDRAMINE HCL 50 MG/ML VIAL IV ONE (17:23)
[2020-07-07] MEDS ORDERED: DIPHENHYDRAMINE HCL 50 MG/ML VIAL ONE (17:29)
[2020-07-07] MEDS ORDERED: LORAZEPAM INJ 2 MG/1 ML VIAL ONE (18:11)
[2020-07-07 18:25] LABS: INTERNATIONAL RATION (INR) 1.06
[2020-07-07 18:27] LABS: ARTERIAL BLOOD BASE EXCESS 4.3 mmol/L; ARTERIAL BLOOD H2CO3 1.02 mmol/L (1.05-1.35); ARTERIAL BLOOD HCO3 27.1 mmol/L (20-24); ARTERIAL BLOOD O2 SATURATION 99.7 % (94-98); ARTERIAL BLOOD PH 7.52 (7.35-7.45); ARTERIAL BLOOD PO2 287.4 mmHg (80-100); ARTERIAL BLOOD TOTAL CO2 28.1 mmol/L (23-27)
[2020-07-07 18:29] LABS: ARTERIAL BLOOD FIO2 15L
[2020-07-07 18:32] LABS: ALBUMIN 3.6 g/dL (3.5-5.0); ALKALINE PHOSPHATASE 126 U/L (38-126); ASPARTATE AMINO TRANSFERASE 21 U/L (17-59); BILIRUBIN,DIRECT 0.9 mg/dL (0.0-0.4); BILIRUBIN,TOTAL 1.4 mg/dL (0.2-1.3); CALCIUM 8.5 mg/dL (8.4-10.2); CHLORIDE 102 mmol/L (98-107); GLUCOSE 92 mg/dL (75-110); TOTAL PROTEIN 6.3 g/dL (6.3-8.2)
[2020-07-07] MEDS ORDERED: LORAZEPAM INJ 2 MG/1 ML VIAL IV ONE (18:45)
[2020-07-07 18:46] LABS: ANION GAP 13 (5-19)
--- NOTE | 2020-07-07 19:01 | RADIOLOGY REPORT (SQ) ---
EXAM DESCRIPTION: CT HEAD WITHOUT IMAGES COMPLETED DATE/TIME: 07/07/2020 6:50 pm REASON FOR STUDY: AMS COMPARISON: None. TECHNIQUE: Axial images acquired through the brain without intravenous contrast. Images reviewed wi th bone, brain and subdural windows. Additional sagittal and coronal reconstructions were generated. Images stored on PACS. All CT scanners at this facility use dose modulation, iterative reconstruction, and/or weight based d osing when appropriate to reduce radiation dose to as low as reasonably achievable (ALARA). [facility]: Dose Right [facility]: CareDose [facility]: Dose Right [facility]: Teradose 4D [facility]: [employer] RADIATION DOSE: CT Rad equipment meets quality standard of care and radiation dose reduction techniq ues were employed. CTDIvol: 53.2 mGy. DLP: 1044 mGy-cm. mGy. LIMITATIONS: None. FINDINGS: VENTRICLES: Normal size and contour. CEREBRUM: No masses. No hemorrhage. No midline shift. No evidence for acute infarction. Normal gra y/white matter differentiation. No areas of low density in the white matter. CEREBELLUM: No masses. No hemorrhage. No alteration of density. No evidence for acute infarction. EXTRAAXIAL SPACES: No fluid collections. No masses. ORBITS AND GLOBE: No intra- or extraconal masses. Normal contour of globe without masses. CALVARIUM: No fracture. PARANASAL SINUSES: No fluid or mucosal thickening. SOFT TISSUES: No mass or hematoma. OTHER: No other significant finding. IMPRESSION: NORMAL BRAIN CT WITHOUT CONTRAST. EVIDENCE OF ACUTE STROKE: NO. COMMENT: Quality ID # [id number]: Final reports with documentation of one or more dose reduction techniques (e.g., Automated exposure control, adjustment of the mA and/or kV according to patient size, use of iterative reconstruction technique) TECHNICAL DOCUMENTATION: JOB ID: [id number] 2010 [employer]- All Rights Reserved Reading location - IP/workstation name: [email or web address]
[2020-07-07 19:04] LABS: BLOOD UREA NITROGEN 65 mg/dL (7-20); CARBON DIOXIDE 26 mmol/L (22-30); POTASSIUM 3.3 mmol/L (3.6-5.0)
--- NOTE | 2020-07-07 19:07 | ER Document Report ---
ED General - General Stated Complaint: BREATHING PROBLEMS Time Seen by Provider: 07/07/20 12:41 Information source: Patient, Relative TRAVEL OUTSIDE OF THE [place] IN LAST 30 DAYS: No - HPI Notes: Patient is sent from dialysis secondary to having diarrhea. Patient states that he had a colonoscopy several weeks ago and since then he has had diarrhea that is occasionally bloody. He states that he has not been going to his regularly scheduled dialysis due to having frequent stools. Today when he was at dialysis he mentioned to them that he did not feel like he could complete the session because of his need to have to use the restroom. Patient denies any significant pain. He has had some mild shortness of breath. He last dialyzed approximately 1 week ago. Patient has had some weakness and fatigue. His symptoms have been intermittent as far as the diarrhea but constant as far as the fatigue and weakness. The fatigue and weakness is worse with exertion and better with rest obviously the weakness obviously radiates throughout his body. No recent cough cold or fever. - Related Data Allergies/Adverse Reactions: No Known Allergies Allergy (Verified 06/18/18 09:03) Past Medical History - General Information source: Patient - Social History Smoking Status: Current Every Day Smoker Chew tobacco use (# tins/day): No Frequency of alcohol use: None Drug Abuse: None Family History: Reviewed & Not Pertinent - Past Medical History Cardiac Medical History: Denies: Hx Coronary Artery Disease, Hx Heart Attack, Hx Hypertension Pulmonary Medical History: Denies: Hx Asthma, Hx Bronchitis, Hx COPD, Hx Pneumonia Neurological Medical History: Reports: Hx Cerebrovascular Accident. 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 Failed. Left transposed basilic vei - Immunizations Hx Diphtheria, Pertussis, Tetanus Vaccination: Yes Hx Pneumococcal Vaccination: 03/23/17 Review of Systems - Review of Systems Constitutional: Malaise, Weakness. denies: Chills, Fever Cardiovascular: denies: Chest pain, Palpitations Respiratory: Short of breath. denies: Cough Gastrointestinal: Diarrhea -: Yes All other systems reviewed and negative Physical Exam - Vital signs Vitals: Temp Pulse Ox 97.8 F 87 L 07/07/20 11:31 07/07/20 11:31 Interpretation: Hypoxic, Tachypneic - General General appearance: Appears well, Alert - HEENT Head: Normocephalic, Atraumatic Eyes: Normal Pupils: PERRL - Respiratory Respiratory status: Tachypnea Chest status: Nontender Breath sounds: Decreased air movement Chest palpation: Normal - Cardiovascular Rhythm: Regular Heart sounds: Normal auscultation Murmur: No - Abdominal Inspection: Normal Distension: No distension Bowel sounds: Normal Tenderness: Nontender Organomegaly: No organomegaly - Back Back: Normal, Nontender - Extremities General upper extremity: Normal inspection, Nontender, Normal color, Normal ROM, Normal temperature General lower extremity: Normal inspection, Nontender, Normal color, Normal ROM, Normal temperature, Normal weight bearing. No: Jerry's sign - Neurological Neuro grossly intact: Yes Cognition: Normal Orientation: AAOx4 [place] Coma Scale Eye Opening: Spontaneous [place] Coma Scale Verbal: Oriented [place] Coma Scale Motor: Obeys Commands [place] Coma Scale Total: 15 Speech: Normal Motor strength normal: LUE, RUE, LLE, RLE Sensory: Normal - Psychological Associated symptoms: Normal affect, Normal mood - Skin Skin Temperature: Warm Skin Moisture: Dry Skin Color: Normal Course - Re-evaluation Re-evalutation: 07/07/20 19:09 Patient was initially seen by me and was complaining of the diarrhea. Laboratories had returned by the time I walked in the room and I knew that his potassium was 6.9. I explained to patient and family that I thought it was most important that he complete dialysis secondary to the fact that it had not been done in a week and that his potassium was 6.9. I explained to him that I would do the work-up for diarrhea once he had finished dialysis. I then called and spoke with the multifocal lens assembler who agreed to dialyze the patient. Patient was going to be dialyzed in room 18 but they felt that it would be easier to dialyze patient upstairs since they had all of their equipment there. Therefore patient was sent upstairs to room 18 to be dialyzed. Patient apparently became unresponsive and a rapid response was called. This was approximately 2 hours into the 3-hour session of dialysis. When I walked into the room patient had some tonic-clonic activity as well as some nonpurposef ul movements of the arms and legs that was somewhat of a choreoathetoid type of movement. His eyes were open and he would try to look at me when I talk to them but just had incomprehensible verbal sounds. He was moving all extremities however somewhat non-purposefully. However he did seem to be trying to grab the nonrebreather facemask that was placed on him. I noticed that his saturations are 100% on room air. That his pulse was less than 100 and approximately in the 80s. He had a bounding radial pulse on exam. His blood pressure was also stable. I obtained a history from the dialysis nurse. She stated that about 1 hour before I arrived he started to have trouble with confusion and "twitching". She states that she called the multifocal lens assembler, Dr. Esparza who came and saw the patient. She states that Dr. Esparza ordered a bolus of glucose for the patient and she felt that hypoglycemia may be the cause. She states that it was then felt the patient had some improvement so the plan was to observe the patient and continue dialysis. As patient continued to become more agitated and more confused a rapid response was called and this is when I walked in the room. I Repeated his EKG which shows patient to have an irregularly irregular rhythm possibly consistent with A. fib with right bundle branch block. He also appears to have a PVC on this exam. In addition, a chest x-ray was done which shows no evidence of pneumothorax or infiltrate but some diffuse opacities in the lungs. A head CT was also done at this time is not been read by the radiologist but I do not appreciate any acute changes on head CT. A blood gas was then repeated and shows the patient have a normal pH and normal CO2 and a normal PO2 showing normal gas exchange. Patient was given 1 mg of Ativan and had significant cessation of his twitching and nonpurposeful movements. However he is still not responsive to verbal stimuli and will localize pain only. He does have a gag reflex and is protecting his airway at this time. Dr. Rodgers, the undergraduate internship was in the room with me during the rapid response. We decided together at this time based upon the normal ABG and normal vital signs with a positive gag and a GCS of approximately 10 that we would hold off on intubation. At this time I think the patient's clinical course is most consistent with disequilibrium syndrome. Therefore the dialysis session was stopped and patient was brought back to the emergency department. The undergraduate internship has been notified and has seen the patient and will be admitted to the ICU. I have discussed disequilibrium syndrome with the multifocal lens assembler as well as a possible infusion of hypertonic saline however nephrology felt that this was not indicated and the undergraduate internship also felt there is not indicated at this time. The choice was made to observe the patient and see if his equilibrium is slowly restored and he comes back to his baseline. At this time patient is currently in the trauma bay with normal vital signs, a gag reflex, and a GCS of 9. - Vital Signs Vital signs: Temp Pulse Resp BP Pulse Ox 97.8 F 19 154/81 H 99 07/07/20 11:31 07/07/20 14:00 07/07/20 12:01 07/07/20 13:00 - Laboratory Result Diagrams: 07/07/20 11:42 07/07/20 18:00 Laboratory results interpreted by me: 07/07/20 07/07/20 07/07/20 11:42 11:42 11:42 RBC 3.11 L Hgb 10.4 L Hct 31.2 L MCV 100 H RDW 16.9 H Plt Count 129 L Carbonic Acid ABG pH ABG pCO2 ABG pO2 ABG HCO3 ABG Total CO2 ABG O2 Saturation Sodium 147.8 H Potassium 6.7 H* Chloride 116 H Carbon Dioxide 14 L BUN 169 H Creatinine 11.51 H Est GFR ( Amer) 5 L Est GFR (MDRD) Non-Af 4 L Total Bilirubin Direct Bilirubin 1.1 H Alkaline Phosphatase 146 H Ammonia Creatine Kinase 263 H CK-MB (CK-2) 7.11 H 07/07/20 07/07/20 07/07/20 18:00 18:00 18:00 RBC Hgb Hct MCV RDW Plt Count Carbonic Acid 1.02 L ABG pH 7.52 H ABG pCO2 34.0 L ABG pO2 287.4 H ABG HCO3 27.1 H ABG Total CO2 28.1 H ABG O2 Saturation 99.7 H Sodium Potassium 3.3 L D Chloride Carbon Dioxide BUN 65 H D Creatinine 4.32 H Est GFR ( Amer) 16 L Est GFR (MDRD) Non-Af 13 L Total Bilirubin 1.4 H Direct Bilirubin 0.9 H Alkaline Phosphatase Ammonia 38.9 H Creatine Kinase CK-MB (CK-2) - Diagnostic Test Radiology reviewed: Image reviewed, Reports reviewed - EKG Interpretation by Me Rate: Normal - 83 Rhythm: Other - wap [place]/QRS: RBBB Critical Care Note - Critical Care Note Total time excluding time spent on procedures (mins): 60 Comments: 60 minutes of critical care time were spent on this patient. This included multiple discussions with consultants. It included multiple reassessments. It included reviewing of imaging and laboratory values. Discharge - Discharge Clinical Impression: Disequilibrium syndrome Condition: Critical Disposition: ADMITTED INPATIENT Admitting Provider: Mandy ([employer]) Unit Admitted: ICU
--- NOTE | 2020-07-07 19:07 | RADIOLOGY REPORT (SQ) ---
EXAM DESCRIPTION: CHEST SINGLE VIEW IMAGES COMPLETED DATE/TIME: 07/07/2020 6:45 pm REASON FOR STUDY: WHEEZING. SHORTNESS OF BREATH COMPARISON: 07/07/2020 EXAM PARAMETERS: NUMBER OF VIEWS: One view. TECHNIQUE: Single frontal radiographic view of the chest acquired. RADIATION DOSE: NA LIMITATIONS: None. FINDINGS: LUNGS AND PLEURA: Pulmonary edema. MEDIASTINUM AND HILAR STRUCTURES: No masses. Contour normal. HEART AND VASCULAR STRUCTURES: Cardiomegaly. BONES: No acute findings. HARDWARE: None in the chest. OTHER: No other significant finding. IMPRESSION: Cardiomegaly with pulmonary edema. TECHNICAL DOCUMENTATION: JOB ID: [id number] 2010 [employer]- All Rights Reserved Reading location - IP/workstation name: [email or web address]
[2020-07-07] MEDS ORDERED: IPRATROPIUM/ALBUTEROL 0.5-2.5 MG/3 ML AMPUL NEB ONE (19:16)
[2020-07-07] MEDS ORDERED: IPRATROPIUM/ALBUTEROL 0.5-2.5 MG/3 ML AMPUL NEB PRN (19:33)
[2020-07-07] MEDS ORDERED: GLUCAGON,HUMAN RECOMB 1 MG INJ SUBCUT PRN (19:33)
[2020-07-07] MEDS ORDERED: DEXTROSE 50%-WATER 25 GM/50 ML DISP.SYRIN IV PRN ×2 (19:33)
[2020-07-07] MEDS ORDERED: DEXTROSE 40% GEL 15 GM TUBE PO PRN ×2 (19:33)
[2020-07-07 19:52] LABS: ABSOLUTE EOSINOPHILS # (AUTO) 0.1 10^3/uL (0.0-0.6); ABSOLUTE LYMPHOCYTES (AUTO) 1.2 10^3/uL (0.5-4.7); ABSOLUTE MONOCYTES (AUTO) 0.5 10^3/uL (0.1-1.4); ABSOLUTE NEUT (AUTO) 3.9 10^3/uL (1.7-8.2); BASOPHILS % (AUTO) 0.8 % (0-2); EOSINOPHILS % (AUTO) 2.6 % (0-6); HEMATOCRIT 28.5 % (37.9-51.0); HEMOGLOBIN 9.8 g/dL (13.5-17.0); MEAN CORPUSCULAR HEMOGLOBIN 33.5 pg (27.0-33.4); MEAN CORPUSCULAR HGB CONC 34.5 g/dL (32.0-36.0); MEAN CORPUSCULAR VOLUME 97 fl (80-97); MONOCYTES % (AUTO) 9.3 % (3-13); PLATELET COUNT 122 10^3/uL (150-450); RED BLOOD COUNT 2.94 10^6/uL (4.35-5.55); SEGMENTED NEUTROPHILS % (AUTO) 67.3 % (42-78); TOTAL CELLS COUNTED % (AUTO) 100 %; WHITE BLOOD COUNT 5.9 10^3/uL (4.0-10.5)
[2020-07-07] MEDS ORDERED: DEXTROSE 10%-WATER 500 ML IV PRN (19:57)
[2020-07-07] MEDS: NITROGLYCERIN 2% OINTMENT 1 GM PACKET TP SCH (20:28)
[2020-07-07] MEDS ORDERED: DEXMEDETOMIDINE IN 0.9 % NACL 400 MCG/100 ML RTUPB IV ONE (21:42)
[2020-07-07] MEDS ORDERED: DEXMEDETOMIDINE IN 0.9 % NACL 400 MCG/100 ML RTUPB IV PRN (21:43)
[2020-07-07 21:46] LABS: ALBUMIN 3.5 g/dL (3.5-5.0); ALKALINE PHOSPHATASE 105 U/L (38-126); ANION GAP 13 (5-19); ASPARTATE AMINO TRANSFERASE 27 U/L (17-59); BILIRUBIN,DIRECT 1.1 mg/dL (0.0-0.4); BILIRUBIN,TOTAL 1.5 mg/dL (0.2-1.3); CALCIUM 8.5 mg/dL (8.4-10.2); CARBON DIOXIDE 26 mmol/L (22-30); CHLORIDE 103 mmol/L (98-107); PHOSPHORUS 5.4 mg/dL (2.5-4.5); TOTAL PROTEIN 6.1 g/dL (6.3-8.2)
[2020-07-07 21:57] LABS: BLOOD UREA NITROGEN 85 mg/dL (7-20); POTASSIUM 4.3 mmol/L (3.6-5.0)
[2020-07-07] MEDS ORDERED: PANTOPRAZOLE SODIUM 40 MG VIAL IV SCH (22:00)
[2020-07-07 22:01] LABS: GLUCOSE 64 mg/dL (75-110)
[2020-07-07] MEDS ORDERED: OLANZAPINE INJ/PF 10 MG SDV IM ONE ×2 (22:11→22:34)
--- NOTE | 2020-07-07 22:54 | PDOC CONSULTATION ---
Consultation Consult Date: 07/07/20 Provider Consulted: STAN CORTES Consult reason:: Hyperkalemia, ESRD History of Present Illness Admission Date/PCP: 07/07/20 History of Present Illness: MONTRELL OMALLEY is a 85 year old -[place] gentleman with known history of ESRD and maintenance hemodialysis on Tuesdays, and Saturdays, hypertension and diabetes mellitus type 2 who was brought into the emergency room from [facility] dialysis unit for evaluation because the patient presented at [facility] with complaints of increased shortness of breath, inability to walk, shaking, crying with intermittent blood in the stool and liquid stools for about a week after colonoscopy. He had colonoscopy in June 15, [address] Laurent who found the sigmoid colon polyp, diverticulosis and internal hemorrhoids. While at [facility] dialysis unit, her dialysis nurse reported to the patient already had 5 liquid bowel movements. Patient told her nurse that he was unable to sit for dialysis treatment and would just like to go home or go to the emergency room. Subsequently EMS was called and the patient was transported to the emergency room. In the emergency room upon presentation he had a potassium of 6.7, BUN of 169 and creatinine of 11.51. The patient's last dialysis was last week Monday and missed his dialysis on and Monday. At the time I was called by the emergency room provider, Dr. Subramanian for emergency dialysis due to hyperkalemia. I then arranged an emergent hemodialysis treatment. At around 5 PM, I saw the patient while receiving hemodialysis treatment. He was somewhat confused although answering few questions. He was restless. His vital signs were stable. His oxygen saturation was 100% on room air. Our dialysis nurse, Jane told me that he was not that confused when he started dialysis. We checked his blood glucose level and it was around 82 so I ordered half an amp of D50. I also noted some coarse breath sounds and wheezing. Considering possible allergic reaction I also gave the patient Benadryl 25 mg IV x1 dose. After the above were given the patient seems to have calmed down and was noted to be less restless while receiving dialysis. So I instructed our dialysis nurse to just monitor the patient very closely since he has calmed down. We also lowered his blood flow and decreased ultrafiltration rate. I then left the dialysis unit. About 15 to 20 minutes after I left the acute dialysis unit, our dialysis nurse, Jane called informing me that she called the rapid response team telling me that the patient's mental status deteriorated. I spoke to the ED Physician, Dr. Oneill who was part of the rapid response team. Subsequently the dialysis needed to be stopped. Patient was brought back to the emergency room department. Once back in the emergency room, Dr. Oneill ordered a head CT which turned out to be negative and an ABG. Patient also had an EKG which was thought to be showing atrial fibrillation. Dr. Oneill called me again from the emergency room department informing me of the results of all the tests that he ordered. For details please see Dr. Oneill's notes. At that time he is considering disequilibrium syndrome which I thought is also highly likely since the patient has missed dialysis treatment for a week prior to this dialysis treatment. He asked me about giving hypertonic saline which I opted to wait for the repeat chemistry at the end of dialysis before doing that. We cannot give mannitol in a dialysis patient. He also told me that he called customer development representative for ICU admission and Dr. Galvan agreed to admit the patient in the ICU. After the repeat chemistry has come back, his sodium level was 141.7, potassium was 3.3, with BUN of 65, creatinine of 4.32, magnesium was 2.2 and calcium was 8.5. I then called to the customer development representative nurse practitioner Alan Marin and asked that the chemistries be repeated between 9-10 PM just to follow through. Past Medical History Cardiac Medical History: Reports: Hypertension-primary Endocrine Medical History: Reports: Diabetes Mellitus Type 2 Renal/ Medical History: Reports: End Stage Renal Disease Malignancy Medical History: Reports: Other - Prostate cancer GI Medical History: Reports: Other - Internal hemorrhoids, diverticulosis Musculoskeltal Medical History: Reports: Arthritis - DJD- KNEES; DDD LUMBAR S PINE Hematology Medical History: Reports Anemia of Chronic Kidney Disease Past Surgical History Past Surgical History: Reports: Vascular Surgery - Left forearm radiocephalic fistula. Failed. Left transposed basilic vei Social History Smoking Status: Current Every Day Smoker Electronic Cigarette use?: No Family History Family History: DM, Hypertension Family History: Reviewed from previous records as the patient cannot give this information at this time. Parental Family History Reviewed: Yes Children Family History Reviewed: Yes Sibling(s) Family History Reviewed.: Yes Medication/Allergy Home Medications: Doxazosin Mesylate 2 mg PO QHS 07/01/14 Aspirin [Aspirin 81 mg Chewable Tablet] 1 tab PO QHS 05/26/15 B Complex W-C No.20/Folic Acid [[place] Caps Softgel] 1 tab PO DAILY 08/08/16 Cholecalciferol (Vitamin D3) [Vitamin D3] 2,000 unit PO DAILY 08/08/16 Calcium Acetate [Phoslo 667 mg Capsule] 2,001 mg PO AC 06/15/18 Calcium Acetate [Phoslo 667 mg Capsule] 1,334 mg PO .SNACKS 07/07/20 Megestrol Acetate [Megace 20 mg Tablet] 40 mg PO DAILY@,07/07/20 Allergies/Adverse Reactions: No Known Allergies Allergy (Verified 06/18/18 09:03) Review of Systems ROS unobtainable: Due to mental status Physical Exam Vital Signs: Temp Pulse Resp BP Pulse Ox 97.8 F 19 154/81 H 99 07/07/20 11:31 07/07/20 14:00 07/07/20 12:01 07/07/20 13:00 Intake & Output 07/06/20 07/07/20 07/08/20 06:59 06:59 06:59 Weight 88.9 kg Vitals during dialysis when I saw him: Blood pressure 158/82, heart rate of 93, blood flow rate of 450 mL/min 100 mL/min, oxygen saturation of 100% at room air. Exam: General appearance: Confused and restless Head exam: PRESENT: atraumatic, normocephalic Eye exam: PRESENT: Conjunctiva slightly pale, EOMI, PERRLA. ABSENT: conjunctival injection, scleral icterus Mouth exam: PRESENT: moist, neck supple, tongue midline Neck exam: PRESENT: full ROM. ABSENT: carotid bruit, JVD, lymphadenopathy, thyromegaly Respiratory exam: PRESENT: Coarse breath sounds to auscultation bilaterally. Positive rhonchi ABSENT: rales, stridor Cardiovascular exam: PRESENT: RRR, +S1, +S2. Tachycardic ABSENT: systolic murmur Pulses: PRESENT: normal radial pulses, normal dorsalis pedis pulses GI/Abdominal exam: PRESENT: normal bowel sounds, soft. ABSENT: guarding, mass, tenderness Rectal exam: Deferred Extremities exam: PRESENT: full ROM. ABSENT: calf tenderness, pedal edema Musculoskeletal: PRESENT: full ROM. ABSENT: deformity Neurological exam: PRESENT: Awake, confused and restless Psychiatric exam: PRESENT: Slightly agitated Skin exam: PRESENT: intact, dry, warm. ABSENT: rash Results Laboratory Results: 07/07/20 11:42 07/07/20 11:42 07/07/20 07/07/20 11:42 11:42 WBC 6.5 RBC 3.11 L Hgb 10.4 L Hct 31.2 L MCV 100 H MCH 33.4 MCHC 33.4 RDW 16.9 H Plt Count 129 L Seg Neutrophils % 73.4 Sodium 147.8 H Potassium 6.7 H* Chloride 116 H Carbon Dioxide 14 L Anion Gap 18 BUN 169 H Creatinine 11.51 H Est GFR ( Amer) 5 L Glucose 86 Calcium 9.0 Total Bilirubin 1.2 AST 24 Alkaline Phosphatase 146 H Total Protein 7.2 Albumin 4.0 07/07/20 07/07/20 11:42 11:42 Creatine Kinase 263 H CK-MB (CK-2) 7.11 H Troponin I 0.160 Impressions: Chest X-Ray 07/07/20 11:35 IMPRESSION: No acute cardiopulmonary disease. Chronic pleural and parenchymal scarring probably representing underlying pulmonary fibrosis, unchanged in appearance from prior. Assessment & Plan - Diagnosis (1) Hyperkalemia Is this a current diagnosis for this admission?: Yes Plan: Initial potassium was 6.7. Emergent hemodialysis treatment was arranged this afternoon. (2) Disequilibrium syndrome Is this a current diagnosis for this admission?: Yes Plan: Events during dialysis and subsequent work-up ruling out other obvious causes is consistent with disequilibrium syndrome. This is most likely due to patient missing hemodialysis for about a week presenting with uremia and elevated BUN and creatinine more than his baseline. Patient will be monitored closely in the ICU. Chemistries will also be repeated. Patient may need slow, short, frequent hemodialysis treatment to prevent this from happening again at least for this next week. (3) ESRD (end stage renal disease) Is this a current diagnosis for this admission?: Yes Plan: Dialysis done today for a little over 3 hours, using 1 potassium bath for 1-1/2 to 2 hours followed by 2 potassium bath until the end of dialysis treatment, using the patient's AV fistula, ultrafiltration was only 600 mL due to acute events as noted above and patient was not given any Retacrit today. Patient is to be reevaluated tomorrow for need of dialysis treatment. Dr. Kate as will be in the hospital service starting tomorrow so I will sign off to him. (4) Metabolic acidosis Is this a current diagnosis for this admission?: Yes Plan: Dialysis none today. This was due to missing dialysis for a week. (5) Hypertension Is this a current diagnosis for this admission?: Yes (6) Anemia in chronic kidney disease (CKD) Is this a current diagnosis for this admission?: Yes Plan: Retacrit to be given during dialysis as needed. (7) Diabetes mellitus type 2 in nonobese Is this a current diagnosis for this admission?: Yes - Notes Notes: Discussed with Dr. Oneill and Alan Marin NP.
--- NOTE | 2020-07-07 22:57 | CRITICAL CARE ADMISSION REPORT ---
HPI Date:: 07/07/20 Time:: 22:37 Reason for ICU Reason:: new onset seizure Admission Date/Time & PCP: Admission Date/Time: 07/07/20 19:28 Primary Care Provider: Admited to Dr. Galvan HPI: 85 year old male who presented to ED for increased shortness of breath after missing several hemodialysis treatments. The patient was sent to the hemodialysis center at [place] for emergent HD and while being dialyzed the patient began to have complications described as seizure like activity. The initial head CT after this event was negative. The pateint initial potassium was 6.9 however his repeat results are 4.3. The ER provided consulted critical care for admission and management of this patient. The patient arrived to the ICU very agitated and uncooperative. A complete review of system is unable to be obtained at this time. The patient is tolerating BIPAP with oxygen saturation of 99%. 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 Failed. Left transposed basilic vei Social/Family History - Social History Smoking Status: Current Every Day Smoker Drugs: None - Medication/Allergies Home Medications: Doxazosin Mesylate 2 mg PO QHS 07/01/14 Aspirin [Aspirin 81 mg Chewable Tablet] 1 tab PO QHS 05/26/15 B Complex W-C No.20/Folic Acid [Lewis Caps Softgel] 1 tab PO DAILY 08/08/16 Cholecalciferol (Vitamin D3) [Vitamin D3] 2,000 unit PO DAILY 08/08/16 Calcium Acetate [Phoslo 667 mg Capsule] 2,001 mg PO AC 06/15/18 Calcium Acetate [Phoslo 667 mg Capsule] 1,334 mg PO .SNACKS 07/07/20 Megestrol Acetate [Megace 20 mg Tablet] 40 mg PO DAILY@08,12 07/07/20 Allergies/Adverse Reactions: No Known Allergies Allergy (Verified 06/18/18 09:03) Review of Systems ROS unobtainable: Due to mental status Physical Exam Vital Signs: Temp Pulse Resp BP Pulse Ox 98.1 F 35 H 158/62 H 98 07/07/20 20:01 07/07/20 21:41 07/07/20 20:01 07/07/20 20:01 Intake & Output 07/06/20 07/07/20 07/08/20 06:59 06:59 06:59 Output Total 600 Balance -600 Weight 88.9 kg Weight/Height Weight 88.9 kg General appearance: PRESENT: obese, well-developed, well-nourished Head exam: PRESENT: atraumatic, normocephalic Eye exam: PRESENT: EOMI, PERRLA Ear exam: PRESENT: TM's normal bilaterally Mouth exam: PRESENT: moist Neck exam: PRESENT: full ROM, tenderness. ABSENT: carotid bruit, JVD, lymphadenopathy, meningismus, thyromegaly, tracheal deviation, tracheostomy, other Respiratory exam: PRESENT: accessory muscle use, decreased breath sounds, rhonchi, tachypnea Cardiovascular exam: PRESENT: +S1, +S2 Pulses: PRESENT: normal carotid pulses, normal radial pulses, +1 pedal pulses bilateral GI/Abdominal exam: PRESENT: hypoactive bowel sounds, soft Rectal exam: PRESENT: deferred Gentrourinary exam: PRESENT: indwelling catheter Extremities exam: PRESENT: joint swelling Musculoskeletal exam: PRESENT: full ROM Neurological exam: PRESENT: alert, other - agitated and uncooperative Psychiatric exam: PRESENT: agitated Laboratory/Radiographs Laboratory Results: 07/07/20 19:26 07/07/20 21:16 07/07/20 07/07/20 07/07/20 11:42 11:42 18:00 WBC 6.5 Cancelled RBC 3.11 L Cancelled Hgb 10.4 L Cancelled Hct 31.2 L Cancelled MCV 100 H Cancelled MCH 33.4 Cancelled MCHC 33.4 Cancelled RDW 16.9 H Cancelled Plt Count 129 L Cancelled Seg Neutrophils % 73.4 Cancelled Carbonic Acid HCO3/H2CO3 Ratio ABG pH ABG pCO2 ABG pO2 ABG HCO3 ABG O2 Saturation ABG Base Excess FiO2 Sodium 147.8 H Potassium 6.7 H* Chloride 116 H Carbon Dioxide 14 L Anion Gap 18 BUN 169 H Creatinine 11.51 H Est GFR ( Amer) 5 L Glucose 86 Lactic Acid Calcium 9.0 Phosphorus Magnesium Total Bilirubin 1.2 AST 24 Alkaline Phosphatase 146 H Ammonia Total Protein 7.2 Albumin 4.0 07/07/20 07/07/20 07/07/20 18:00 18:00 18:00 WBC RBC Hgb Hct MCV MCH MCHC RDW Plt Count Seg Neutrophils % Carbonic Acid HCO3/H2CO3 Ratio ABG pH ABG pCO2 ABG pO2 ABG HCO3 ABG O2 Saturation ABG Base Excess FiO2 Sodium 141.1 Potassium 3.3 L D Chloride 102 Carbon Dioxide 26 D Anion Gap 13 BUN 65 H D Creatinine 4.32 H Est GFR ( Amer) 16 L Glucose 92 Lactic Acid 0.7 Calcium 8.5 Phosphorus Magnesium 2.2 Total Bilirubin 1.4 H AST 21 Alkaline Phosphatase 126 Ammonia 38.9 H Total Protein 6.3 Albumin 3.6 07/07/20 07/07/20 07/07/20 18:00 19:26 21:16 WBC 5.9 RBC 2.94 L Hgb 9.8 L Hct 28.5 L MCV 97 MCH 33.5 H MCHC 34.5 RDW 16.0 H Plt Count 122 L Seg Neutrophils % 67.3 Carbonic Acid 1.02 L HCO3/H2CO3 Ratio 26:1 ABG pH 7.52 H ABG pCO2 34.0 L ABG pO2 287.4 H ABG HCO3 27.1 H ABG O2 Saturation 99.7 H ABG Base Excess 4.3 FiO2 15L Sodium 142.3 Potassium 4.3 D Chloride 103 Carbon Dioxide 26 Anion Gap 13 BUN 85 H D Creatinine 5.71 H Est GFR ( Amer) 12 L Glucose 64 L Lactic Acid Calcium 8.5 Phosphorus 5.4 H Magnesium 2.4 H Total Bilirubin 1.5 H AST 27 Alkaline Phosphatase 105 Ammonia Total Protein 6.1 L Albumin 3.5 07/07/20 07/07/20 07/07/20 11:42 11:42 19:26 Creatine Kinase 263 H 187 H CK-MB (CK-2) 7.11 H Troponin I 0.160 07/07/20 19:26 Creatine Kinase CK-MB (CK-2) Troponin I 0.180 Impressions: Head CT 07/07/20 00:00 IMPRESSION: NORMAL BRAIN CT WITHOUT CONTRAST. EVIDENCE OF ACUTE STROKE: NO. Chest X-Ray 07/07/20 11:35 IMPRESSION: No acute cardiopulmonary disease. Chronic pleural and parenchymal scarring probably representing underlying pulmonary fibrosis, unchanged in appearance from prior. All labs, radiographs, diagnostic studies and EKGs were personally reviewed: Yes In addition, reports of radiographic and diagnostic studies were read: Yes Critical Time Critical Time (minutes): 55 -: The care of a critically ill patient is dynamic. This note represents a static moment in the admission process. Orders and treatments may be given simultaneously and urgently, and time is not teleservices representative of the treatment process. This patient requires Critical Care secondary to life threatening organ or limb dysfunction. Without Critical Care services, the patient is at risk for increased mortality and morbidity.
--- NOTE | 2020-07-07 23:05 | Operative Report ---
Bedside Procedure - History of Present Illness Indication for Procedure: hypoglycemia Provider: TAMMIE ROBLEDO - Central Line Left Internal jugular Time completed: 10:30 Consent obtained: No - medical neccesity Central line pre-insertion: Sterile PPE donned, Chloraprep applied, Sterile drapes applied Central line lumen type: Triple Anesthetic type: 1% Lidocaine Ultrasound guided: Yes Line secured with sutures: Yes Central line post-insertion: Blood return from lumens, Biopatch applied, Sutured, Sterile dressing applied, Position confirmed w/ CXR Number of attempts: 2 - pt very agitated and uncooperative Complications: No
[2020-07-07] MEDS ORDERED: NORMAL SALINE INJ/PF 0.9% 10 ML SDV IV PRN (23:06)
--- NOTE | 2020-07-07 23:15 | RADIOLOGY REPORT (SQ) ---
EXAM DESCRIPTION: XR CHEST 1 VIEW COMPLETED DATE/TME: 07/07/2020 00:00 CLINICAL HISTORY: 85 years, Male, line placement COMPARISON: 07/07/2020 chest NUMBER OF VIEWS: 1 TECHNIQUE: Portable chest LIMITATIONS: None. FINDINGS: Cardiomegaly. Endovascular graft left axillary region. Central venous catheter, with the tip in the cavoatrial junction. No pneumothorax. Diffusely coarse interstitial changes bilaterally likely reflecting underlying fibrosis. IMPRESSION: Central venous catheter with the tip in the cavoatrial junction. No pneumothorax. Underlying fibrotic change copyright 2010 [employer]- All Rights Reserved
[2020-07-07] MEDS ORDERED: FUROSEMIDE INJ/PF 40 MG/4 ML SDV IV ONE (23:24)
[2020-07-08] MEDS: HEPARIN SOD (PORCINE) 5,000 UNIT/ML 1 ML VIAL SUBCUT SCH ×4 (00:01→22:50)
[2020-07-08] MEDS: HYDROCORTISONE SOD SUCCINATE INJ/PF 100 MG/2 ML SDV IV SCH ×3 (00:01→22:50)
[2020-07-08] MEDS: NITROGLYCERIN 2% OINTMENT 1 GM PACKET TP SCH ×3 (00:06→11:32)
--- NOTE | 2020-07-08 00:50 | EKG REPORT ---
SEVERITY:- ABNORMAL ECG - ATRIAL FIBRILLATION MULTIFORM VENTRICULAR PREMATURE COMPLEXES RBBB AND LAFB : Confirmed by: JoséM iguel Guerra 08-Jul-2020 00:49:55
--- NOTE | 2020-07-08 00:51 | EKG REPORT ---
SEVERITY:- ABNORMAL ECG - Consider atrial fibrillation RIGHT BUNDLE BRANCH BLOCK : Confirmed by: José Miguel Guerra 08-Jul-2020 00:50:39
[2020-07-08 01:29] LABS: ARTERIAL BLOOD BASE EXCESS 2.2 mmol/L; ARTERIAL BLOOD H2CO3 1.07 mmol/L (1.05-1.35); ARTERIAL BLOOD HCO3 25.7 mmol/L (20-24); ARTERIAL BLOOD O2 SATURATION 89.3 % (94-98); ARTERIAL BLOOD PCO2 35.5 mmHg (35-45); ARTERIAL BLOOD PH 7.48 (7.35-7.45); ARTERIAL BLOOD TOTAL CO2 26.8 mmol/L (23-27)
[2020-07-08 01:30] LABS: ARTERIAL BLOOD FIO2 35%
[2020-07-08 06:06] LABS: ARTERIAL BLOOD BASE EXCESS -1.1 mmol/L; ARTERIAL BLOOD H2CO3 1.22 mmol/L (1.05-1.35); ARTERIAL BLOOD HCO3 23.8 mmol/L (20-24); ARTERIAL BLOOD O2 SATURATION 90.3 % (94-98); ARTERIAL BLOOD PCO2 40.4 mmHg (35-45); ARTERIAL BLOOD PH 7.39 (7.35-7.45); ARTERIAL BLOOD PO2 58.8 mmHg (80-100)
[2020-07-08 06:08] LABS: INTERNATIONAL RATION (INR) 1.14; PROTHROMBIN TIME 14.8 SEC (11.4-15.4)
[2020-07-08 06:26] LABS: ARTERIAL BLOOD FIO2 ROOM AIR
[2020-07-08 06:28] LABS: ABSOLUTE LYMPHOCYTES (AUTO) 0.4 10^3/uL (0.5-4.7); ABSOLUTE MONOCYTES (AUTO) 0.4 10^3/uL (0.1-1.4); ABSOLUTE NEUT (AUTO) 4.8 10^3/uL (1.7-8.2); BASOPHILS % (AUTO) 0.4 % (0-2); EOSINOPHILS % (AUTO) 0.1 % (0-6); HEMATOCRIT 26.1 % (37.9-51.0); LYMPHOCYTES % (AUTO) 7.3 % (13-45); MEAN CORPUSCULAR HEMOGLOBIN 33.3 pg (27.0-33.4); MEAN CORPUSCULAR HGB CONC 34.6 g/dL (32.0-36.0); MEAN CORPUSCULAR VOLUME 96 fl (80-97); MONOCYTES % (AUTO) 7.2 % (3-13); PLATELET COUNT 102 10^3/uL (150-450); RED BLOOD COUNT 2.72 10^6/uL (4.35-5.55); TOTAL CELLS COUNTED % (AUTO) 100 %; WHITE BLOOD COUNT 5.7 10^3/uL (4.0-10.5)
[2020-07-08 06:44] LABS: ALBUMIN 3.3 g/dL (3.5-5.0); ALKALINE PHOSPHATASE 90 U/L (38-126); ANION GAP 13 (5-19); ASPARTATE AMINO TRANSFERASE 23 U/L (17-59); BILIRUBIN,DIRECT 0.9 mg/dL (0.0-0.4); BILIRUBIN,TOTAL 1.3 mg/dL (0.2-1.3); BLOOD UREA NITROGEN 84 mg/dL (7-20); CALCIUM 8.2 mg/dL (8.4-10.2); CARBON DIOXIDE 24 mmol/L (22-30); CHLORIDE 105 mmol/L (98-107); GLUCOSE 87 mg/dL (75-110); PHOSPHORUS 6.8 mg/dL (2.5-4.5); POTASSIUM 4.6 mmol/L (3.6-5.0); TOTAL PROTEIN 6.1 g/dL (6.3-8.2)
[2020-07-08 06:54] LABS: FREE T4 (FREE THYROXINE) 1.15 ng/dL (0.78-2.19)
[2020-07-08] MEDS ORDERED: CALCIUM ACETATE 667 MG CAPSULE PO SCH (07:00)
[2020-07-08 07:08] LABS: THYROID STIMULATING HORMONE 3.77 uIU/mL (0.47-4.68)
--- NOTE | 2020-07-08 07:27 | PDOC CRITICAL CARE PROG REPORT ---
General Date:: 07/08/20 ICU Day:: 2 Hospital Day:: 2 Resuscitation Status: Full Code Events in the past 12 to 24 Hours:: Medically more stable. Source of delirium seems to be hypoglycemia Review of systems relevant to events:: Endocrine, renal, neurologic. Reason for ICU Addmission:: new onset seizure, hypoglycemia. - Medications: Medications reviewed and adjusted accordingly: Yes Vasopressors:: None Sedation:: Precedex. Physical Exam Vital Signs: Temp Pulse Resp BP Pulse Ox 98.1 F 65 19 101/64 100 07/08/20 04:28 07/08/20 01:33 07/08/20 06:38 07/08/20 06:38 07/08/20 06:38 Intake & Output 07/07/20 07/08/20 07/09/20 06:59 06:59 06:59 Intake Total 40 Output Total 915 Balance -875 Weight 81.5 kg Weight/Height Weight 81.5 kg Height 5 ft 11 in General appearance: PRESENT: no acute distress Head exam: PRESENT: atraumatic, normocephalic Eye exam: PRESENT: conjunctiva pink, EOMI, PERRLA. ABSENT: scleral icterus Ear exam: PRESENT: normal external ear exam Mouth exam: PRESENT: moist, tongue midline Respiratory exam: PRESENT: clear to auscultation prabha. ABSENT: rales, rhonchi, wheezes Cardiovascular exam: PRESENT: RRR. ABSENT: diastolic murmur, rubs, systolic murmur GI/Abdominal exam: PRESENT: normal bowel sounds, soft. ABSENT: distended, guarding, mass, organolmegaly, rebound, tenderness Rectal exam: PRESENT: deferred Gentrourinary exam: PRESENT: indwelling catheter Extremities exam: PRESENT: full ROM. ABSENT: calf tenderness, clubbing, pedal edema Musculoskeletal exam: PRESENT: normal inspection Neurological exam: PRESENT: altered, other - Sedated. Skin exam: PRESENT: dry, intact, warm. ABSENT: cyanosis, rash Tubes/Lines: PRESENT: Dialysis catheter Laboratory/Radiographs Laboratory Results: 07/08/20 05:20 07/08/20 06:10 07/07/20 07/07/20 07/07/20 11:42 11:42 18:00 WBC 6.5 Cancelled RBC 3.11 L Cancelled Hgb 10.4 L Cancelled Hct 31.2 L Cancelled MCV 100 H Cancelled MCH 33.4 Cancelled MCHC 33.4 Cancelled RDW 16.9 H Cancelled Plt Count 129 L Cancelled Seg Neutrophils % 73.4 Cancelled Carbonic Acid HCO3/H2CO3 Ratio ABG pH ABG pCO2 ABG pO2 ABG HCO3 ABG O2 Saturation ABG Base Excess FiO2 Sodium 147.8 H Potassium 6.7 H* Chloride 116 H Carbon Dioxide 14 L Anion Gap 18 BUN 169 H Creatinine 11.51 H Est GFR ( Amer) 5 L Glucose 86 Lactic Acid Calcium 9.0 Phosphorus Magnesium Total Bilirubin 1.2 AST 24 Alkaline Phosphatase 146 H Ammonia Total Protein 7.2 Albumin 4.0 TSH Free T4 07/07/20 07/07/20 07/07/20 18:00 18:00 18:00 WBC RBC Hgb Hct MCV MCH MCHC RDW Plt Count Seg Neutrophils % Carbonic Acid HCO3/H2CO3 Ratio ABG pH ABG pCO2 ABG pO2 ABG HCO3 ABG O2 Saturation ABG Base Excess FiO2 Sodium 141.1 Potassium 3.3 L D Chloride 102 Carbon Dioxide 26 D Anion Gap 13 BUN 65 H D Creatinine 4.32 H Est GFR ( Amer) 16 L Glucose 92 Lactic Acid 0.7 Calcium 8.5 Phosphorus Magnesium 2.2 Total Bilirubin 1.4 H AST 21 Alkaline Phosphatase 126 Ammonia 38.9 H Total Protein 6.3 Albumin 3.6 TSH Free T4 07/07/20 07/07/20 07/07/20 18:00 19:26 21:16 WBC 5.9 RBC 2.94 L Hgb 9.8 L Hct 28.5 L MCV 97 MCH 33.5 H MCHC 34.5 RDW 16.0 H Plt Count 122 L Seg Neutrophils % 67.3 Carbonic Acid 1.02 L HCO3/H2CO3 Ratio 26:1 ABG pH 7.52 H ABG pCO2 34.0 L ABG pO2 287.4 H ABG HCO3 27.1 H ABG O2 Saturation 99.7 H ABG Base Excess 4.3 FiO2 15L Sodium 142.3 Potassium 4.3 D Chloride 103 Carbon Dioxide 26 Anion Gap 13 BUN 85 H D Creatinine 5.71 H Est GFR ( Amer) 12 L Glucose 64 L Lactic Acid Calcium 8.5 Phosphorus 5.4 H Magnesium 2.4 H Total Bilirubin 1.5 H AST 27 Alkaline Phosphatase 105 Ammonia Total Protein 6.1 L Albumin 3.5 TSH Free T4 07/07/20 07/08/20 07/08/20 22:35 05:20 05:20 WBC 5.7 RBC 2.72 L Hgb 9.0 L Hct 26.1 L MCV 96 MCH 33.3 MCHC 34.6 RDW 16.0 H Plt Count 102 L Seg Neutrophils % 85.0 H Carbonic Acid 1.07 1.22 HCO3/H2CO3 Ratio 24:1 19:1 ABG pH 7.48 H 7.39 ABG pCO2 35.5 40.4 ABG pO2 52.0 L 58.8 L ABG HCO3 25.7 H 23.8 ABG O2 Saturation 89.3 L 90.3 L ABG Base Excess 2.2 -1.1 FiO2 35% ROOM AIR Sodium Potassium Chloride Carbon Dioxide Anion Gap BUN Creatinine Est GFR ( Amer) Glucose Lactic Acid Calcium Phosphorus Magnesium Total Bilirubin AST Alkaline Phosphatase Ammonia Total Protein Albumin TSH Free T4 07/08/20 07/08/20 07/08/20 06:10 06:10 06:10 WBC RBC Hgb Hct MCV MCH MCHC RDW Plt Count Seg Neutrophils % Carbonic Acid HCO3/H2CO3 Ratio ABG pH ABG pCO2 ABG pO2 ABG HCO3 ABG O2 Saturation ABG Base Excess FiO2 Sodium 142.0 Potassium 4.6 Chloride 105 Carbon Dioxide 24 Anion Gap 13 BUN 84 H Creatinine 6.89 H Est GFR ( Amer) 9 L Glucose 87 Lactic Acid Calcium 8.2 L Phosphorus 6.8 H Magnesium 2.5 H Total Bilirubin 1.3 AST 23 Alkaline Phosphatase 90 Ammonia 18.1 Total Protein 6.1 L Albumin 3.3 L TSH 3.77 Free T4 1.15 07/07/20 07/07/20 07/07/20 11:42 11:42 19:26 Creatine Kinase 263 H 187 H CK-MB (CK-2) 7.11 H Troponin I 0.160 07/07/20 07/08/20 07/08/20 19:26 01:37 01:37 Creatine Kinase 190 H CK-MB (CK-2) Troponin I 0.180 0.181 07/08/20 07/08/20 06:10 06:10 Creatine Kinase 178 H CK-MB (CK-2) Troponin I 0.173 Impressions: Head CT 07/07/20 00:00 IMPRESSION: NORMAL BRAIN CT WITHOUT CONTRAST. EVIDENCE OF ACUTE STROKE: NO. EKG: Wandering pacemaker, RBBB. No obvious ischemia. All labs, radiographs, diagnostic studies and EKGs were personally reviewed: Yes In addition, reports of radiographic and diagnostic studies were read: Yes Assessment and Plan - Diagnosis (1) Hypoglycemia Is this a current diagnosis for this admission?: Yes Plan: He is requiring D10 to maintain a BG of 90. This could be the main reason for his delirium. (2) Disequilibrium syndrome Is this a current diagnosis for this admission?: Yes Plan: This has been postulated as it occured during HD. However he has had dialysis for quite a while and this has not happened. Less likely. (3) Hyperkalemia Is this a current diagnosis for this admission?: Yes Plan: This is resolved. K level 4.6. (4) Pulmonary edema Qualifiers: Chronicity: acute Qualified Code(s): J81.0 - Acute pulmonary edema Is this a current diagnosis for this admission?: Yes Plan: This also has resolved. Try off bipap. (5) Diabetes mellitus type 2 in nonobese Is this a current diagnosis for this admission?: Yes Plan: He is still needing his D10. (6) ESRD (end stage renal disease) Is this a current diagnosis for this admission?: Yes Plan: Dialysis per Dr. Begum. He only got a 2 hour run yesterday. He may need to complete today. Plan Summary: If we can get him off bipap and D10 I would feel more comfortable with a downgrade. Critical Time Critical Time (minutes): 35 Level of Care: ICU Anticipated discharge: Home with Homehealth Anticipated DC Timeframe: Other -: 1. The care of a critical patient is a dynamic process. This note is a food service representative synopsis but static in nature. The timeframe for treatments g iven in order is not necessarily the actual time these treatments may have been done. 2. This patient requires critical care secondary to ongoing requirements for therapy not offered or safe outside the critical care environment. Transfer to a lower level of care will result in altered life or limb morbidity and mortality. 3. Multidisciplinary rounds completed. 4. ABCDE bundle addressed.
--- NOTE | 2020-07-08 08:39 | RADIOLOGY REPORT (SQ) ---
EXAM DESCRIPTION: CHEST SINGLE VIEW IMAGES COMPLETED DATE/TIME: 07/08/2020 7:04 am REASON FOR STUDY: congestion COMPARISON: 07/07/2020 NUMBER OF VIEWS: One view. TECHNIQUE: Single frontal radiographic image of the chest acquired. LIMITATIONS: None. FINDINGS: LUNGS AND PLEURA: Stable appearance. Left-sided central line remains in place. MEDIASTINUM AND HILAR STRUCTURES: Stable heart size and mediastinal structures. HEART AND VASCULAR STRUCTURES: Stable appearance. BONES: No acute findings. HARDWARE: Vascular stents in the left axilla are unchanged. OTHER: No other significant finding. IMPRESSION: STABLE APPEARANCE OF THE CHEST. TECHNICAL DOCUMENTATION: JOB ID: [id number] 2010 [employer]- All Rights Reserved Reading location - IP/workstation name: [email or web address]
--- NOTE | 2020-07-08 09:52 | RADIOLOGY REPORT (SQ) ---
EXAM DESCRIPTION: KUB/ABDOMEN (SINGLE VIEW) IMAGES COMPLETED DATE/TIME: 07/08/2020 9:16 am REASON FOR STUDY: NG placement COMPARISON: None. TECHNIQUE: AP chest abdomen LIMITATIONS: None. FINDINGS: Nasogastric tube tip into the stomach. IMPRESSION: NG tube tip in the stomach. TECHNICAL DOCUMENTATION: JOB ID: [id number] 2010 [employer]- All Rights Reserved Reading location - IP/workstation name: [email or web address]
[2020-07-08] MEDS ORDERED: [UNRECOGNIZED DRUG - REMARK] PO SCH (10:00)
[2020-07-08] MEDS ORDERED: PRENATAL VITAMIN W DHA CAPSULE PO SCH (10:00)
[2020-07-08] MEDS ORDERED: (PENDING PHARMACY ID) (Cholecalciferol (Vitamin D3) [Vitamin D3] 2,000 UNIT) PO SCH (10:00)
[2020-07-08] MEDS ORDERED: CHOLECALCIFEROL (D3) 1,000 UNIT (25 MCG) TABLET PO SCH (10:00)
[2020-07-08] MEDS: PANTOPRAZOLE SODIUM 40 MG VIAL IV SCH (10:30)
[2020-07-08] MEDS: CALCIUM ACETATE 667 MG CAPSULE PO SCH ×2 (10:31→11:11)
[2020-07-08] MEDS: PRENATAL VITAMIN W DHA CAPSULE PO SCH (10:33)
[2020-07-08] MEDS: MEGESTROL ACETATE 20 MG TABLET PO SCH ×2 (10:33→11:11)
[2020-07-08] MEDS ORDERED: PHARMACY COMMUNICATION ORDER MC NR (11:45)
[2020-07-08] MEDS ORDERED: CALCIUM ACETATE 667 MG CAPSULE NG SCH (12:00)
[2020-07-08] MEDS: MEGESTROL ACETATE 20 MG TABLET NG SCH (12:22)
--- NOTE | 2020-07-08 14:54 | PDOC PROGRESS REPORT ---
Subjective Progress Note for:: 07/08/20 Reason For Visit: Patient seen in the ICU today. He is sleeping and looking quite comfortable on 2 L of nasal cannula. He was on the BiPAP earlier this morning and was converted to nasal cannula and his oxygen saturation is holding. Discussions were done with the treating nurse as well as with occupational analyst. He had emergent dialysis yesterday as he had missed a whole week of dialysis and came in dyspneic. CXR looked possible CHF/Increased interstitial markings. Apparently f ollowing dialysis, there was alteration of his mental status and was worked up. Looks like he had disequilibrium syndrome as his initial BUN was in the 180s. Labs and medications were reviewed.Apparently he also gives a history of chronic diarrhea 4-5 times a day ever since he had a colonoscopy around 15 June. This was 1 of the reasons why he was missing his dialysis. . Physical Exam Vital Signs: Temp Pulse Resp BP Pulse Ox 96.6 F L 71 17 153/65 H 100 07/08/20 08:00 07/08/20 12:00 07/08/20 14:08 07/08/20 14:08 07/08/20 14:08 Intake & Output 07/07/20 07/08/20 07/09/20 06:59 06:59 06:59 Intake Total 40 130 Output Total 915 420 Balance -875 -290 Weight 81.5 kg 81.5 kg General appearance: PRESENT: no acute distress Respiratory exam: PRESENT: clear to auscultation prabha, decreased breath sounds. ABSENT: crackles Cardiovascular exam: PRESENT: +S1, +S2 GI/Abdominal exam: PRESENT: normal bowel sounds, soft. ABSENT: organomegaly, tenderness Extremities exam: ABSENT: pedal edema Skin exam: ABSENT: erythema, mottled, rash Results Laboratory Results: 07/08/20 05:20 07/08/20 06:10 07/07/20 07/07/20 07/07/20 18:00 18:00 18:00 WBC Cancelled RBC Cancelled Hgb Cancelled Hct Cancelled MCV Cancelled MCH Cancelled MCHC Cancelled RDW Cancelled Plt Count Cancelled Seg Neutrophils % Cancelled Carbonic Acid HCO3/H2CO3 Ratio ABG pH ABG pCO2 ABG pO2 ABG HCO3 ABG O2 Saturation ABG Base Excess FiO2 Sodium 141.1 Potassium 3.3 L D Chloride 102 Carbon Dioxide 26 D Anion Gap 13 BUN 65 H D Creatinine 4.32 H Est GFR ( Amer) 16 L Glucose 92 Lactic Acid 0.7 Calcium 8.5 Phosphorus Magnesium 2.2 Total Bilirubin 1.4 H AST 21 Alkaline Phosphatase 126 Ammonia Total Protein 6.3 Albumin 3.6 TSH Free T4 07/07/20 07/07/20 07/07/20 18:00 18:00 19:26 WBC 5.9 RBC 2.94 L Hgb 9.8 L Hct 28.5 L MCV 97 MCH 33.5 H MCHC 34.5 RDW 16.0 H Plt Count 122 L Seg Neutrophils % 67.3 Carbonic Acid 1.02 L HCO3/H2CO3 Ratio 26:1 ABG pH 7.52 H ABG pCO2 34.0 L ABG pO2 287.4 H ABG HCO3 27.1 H ABG O2 Saturation 99.7 H ABG Base Excess 4.3 FiO2 15L Sodium Potassium Chloride Carbon Dioxide Anion Gap BUN Creatinine Est GFR ( Amer) Glucose Lactic Acid Calcium Phosphorus Magnesium Total Bilirubin AST Alkaline Phosphatase Ammonia 38.9 H Total Protein Albumin TSH Free T4 07/07/20 07/07/20 07/08/20 21:16 22:35 05:20 WBC 5.7 RBC 2.72 L Hgb 9.0 L Hct 26.1 L MCV 96 MCH 33.3 MCHC 34.6 RDW 16.0 H Plt Count 102 L Seg Neutrophils % 85.0 H Carbonic Acid 1.07 HCO3/H2CO3 Ratio 24:1 ABG pH 7.48 H ABG pCO2 35.5 ABG pO2 52.0 L ABG HCO3 25.7 H ABG O2 Saturation 89.3 L ABG Base Excess 2.2 FiO2 35% Sodium 142.3 Potassium 4.3 D Chloride 103 Carbon Dioxide 26 Anion Gap 13 BUN 85 H D Creatinine 5.71 H Est GFR ( Amer) 12 L Glucose 64 L Lactic Acid Calcium 8.5 Phosphorus 5.4 H Magnesium 2.4 H Total Bilirubin 1.5 H AST 27 Alkaline Phosphatase 105 Ammonia Total Protein 6.1 L Albumin 3.5 TSH Free T4 07/08/20 07/08/20 07/08/20 05:20 06:10 06:10 WBC RBC Hgb Hct MCV MCH MCHC RDW Plt Count Seg Neutrophils % Carbonic Acid 1.22 HCO3/H2CO3 Ratio 19:1 ABG pH 7.39 ABG pCO2 40.4 ABG pO2 58.8 L ABG HCO3 23.8 ABG O2 Saturation 90.3 L ABG Base Excess -1.1 FiO2 ROOM AIR Sodium 142.0 Potassium 4.6 Chloride 105 Carbon Dioxide 24 Anion Gap 13 BUN 84 H Creatinine 6.89 H Est GFR ( Amer) 9 L Glucose 87 Lactic Acid Calcium 8.2 L Phosphorus 6.8 H Magnesium 2.5 H Total Bilirubin 1.3 AST 23 Alkaline Phosphatase 90 Ammonia 18.1 Total Protein 6.1 L Albumin 3.3 L TSH Free T4 07/08/20 06:10 WBC RBC Hgb Hct MCV MCH MCHC RDW Plt Count Seg Neutrophils % Carbonic Acid HCO3/H2CO3 Ratio ABG pH ABG pCO2 ABG pO2 ABG HCO3 ABG O2 Saturation ABG Base Excess FiO2 Sodium Potassium Chloride Carbon Dioxide Anion Gap BUN Creatinine Est GFR ( Amer) Glucose Lactic Acid Calcium Phosphorus Magnesium Total Bilirubin AST Alkaline Phosphatase Ammonia Total Protein Albumin TSH 3.77 Free T4 1.15 07/07/20 07/07/20 07/07/20 11:42 11:42 19:26 Creatine Kinase 263 H 187 H CK-MB (CK-2) 7.11 H Troponin I 0.160 07/07/20 07/08/20 07/08/20 19:26 01:37 01:37 Creatine Kinase 190 H CK-MB (CK-2) Troponin I 0.180 0.181 07/08/20 07/08/20 06:10 06:10 Creatine Kinase 178 H CK-MB (CK-2) Troponin I 0.173 Impressions: Head CT 07/07/20 00:00 IMPRESSION: NORMAL BRAIN CT WITHOUT CONTRAST. EVIDENCE OF ACUTE STROKE: NO. KUB X-Ray 07/08/20 00:00 IMPRESSION: NG tube tip in the stomach. Chest X-Ray 07/08/20 06:00 IMPRESSION: STABLE APPEARANCE OF THE CHEST. Assessment & Plan - Diagnosis (1) ESRD (end stage renal disease) Is this a current diagnosis for this admission?: Yes Plan: Patient apparently has missed a week of dialysis because of apparent diarrhea which he began to develop soon after he had his colonoscopy late of last month. He had an emergent dialysis yesterday because of concern for possible flash pulmonary edema. Soon after that he went into altered mental status and work-up was negative and diagnosis of disequilibrium syndrome was made. Currently patient is off all BiPAP and is breathing comfortably and maintaining saturation on 2 L of nasal cannula. Electrolytes are stable. Plan for gentle dialysis tomorrow. Dialysis orders are being done and I have discussed it with Blanca the would be treating dialysis nurse for tomorrow. Discussions were done with occupational analyst as well who agrees with the plan. (2) Disequilibrium syndrome Is this a current diagnosis for this admission?: Yes Plan: Currently resolved. Patient quite comfortable in the ICU. (3) Diabetes mellitus type 2 in nonobese Is this a current diagnosis for this admission?: Yes Plan: As per occupational analyst. (4) Hypertension Is this a current diagnosis for this admission?: Yes Plan: Stable. (5) Anemia in chronic kidney disease (CKD) Is this a current diagnosis for this admission?: No Plan: Monitor. (6) Diarrhea Plan: Ongoing for the last 4 weeks. Diarrhea could be a presentation of COVID as he is high risk. Would recommend testing for COVID besides other testing. Discussed with occupational analyst.
[2020-07-08] MEDS: CALCIUM ACETATE 667 MG CAPSULE NG SCH (15:51)
[2020-07-08] MEDS ORDERED: DOXAZOSIN MESYLATE 2 MG TABLET PO SCH (16:00)
--- NOTE | 2020-07-08 19:07 | EKG REPORT ---
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
--- NOTE | 2020-07-08 19:08 | EKG REPORT ---
SEVERITY:- ABNORMAL ECG - WANDERING PACEMAKER VS ATRIAL TACHYCARDIA WITH VARIABLE BLOCK RIGHT BUNDLE BRANCH BLOCK : Confirmed by: José Miguel Guerra 08-Jul-2020 19:07:52
[2020-07-08] MEDS: ASPIRIN 81 MG TABLET, CHEWABLE NG SCH (22:50)
[2020-07-09 04:35] LABS: ABSOLUTE LYMPHOCYTES (AUTO) 0.4 10^3/uL (0.5-4.7); ABSOLUTE MONOCYTES (AUTO) 0.4 10^3/uL (0.1-1.4); ABSOLUTE NEUT (AUTO) 6.4 10^3/uL (1.7-8.2); BASOPHILS % (AUTO) 0.3 % (0-2); EOSINOPHILS % (AUTO) 0.2 % (0-6); HEMATOCRIT 29.3 % (37.9-51.0); HEMOGLOBIN 10.1 g/dL (13.5-17.0); INTERNATIONAL RATION (INR) 1.07; LYMPHOCYTES % (AUTO) 6.1 % (13-45); MEAN CORPUSCULAR HEMOGLOBIN 33.4 pg (27.0-33.4); MEAN CORPUSCULAR HGB CONC 34.5 g/dL (32.0-36.0); MEAN CORPUSCULAR VOLUME 97 fl (80-97); MONOCYTES % (AUTO) 5.3 % (3-13); PLATELET COUNT 103 10^3/uL (150-450); PROTHROMBIN TIME 14.1 SEC (11.4-15.4); RED BLOOD COUNT 3.03 10^6/uL (4.35-5.55); RED CELL DISTRIBUTION WIDTH 15.8 % (11.5-14.0); SEGMENTED NEUTROPHILS % (AUTO) 88.1 % (42-78); TOTAL CELLS COUNTED % (AUTO) 100 %; WHITE BLOOD COUNT 7.2 10^3/uL (4.0-10.5)
[2020-07-09 04:41] LABS: ALBUMIN 3.4 g/dL (3.5-5.0); ALKALINE PHOSPHATASE 89 U/L (38-126); ANION GAP 17 (5-19); ASPARTATE AMINO TRANSFERASE 23 U/L (17-59); BILIRUBIN,DIRECT 0.9 mg/dL (0.0-0.4); BILIRUBIN,TOTAL 1.3 mg/dL (0.2-1.3); BLOOD UREA NITROGEN 96 mg/dL (7-20); CALCIUM 8.8 mg/dL (8.4-10.2); CARBON DIOXIDE 21 mmol/L (22-30); CHLORIDE 104 mmol/L (98-107); GLUCOSE 113 mg/dL (75-110); PHOSPHORUS 8.5 mg/dL (2.5-4.5); TOTAL PROTEIN 6.3 g/dL (6.3-8.2)
[2020-07-09 04:45] LABS: POTASSIUM 5.9 mmol/L (3.6-5.0)
[2020-07-09] MEDS: HEPARIN SOD (PORCINE) 5,000 UNIT/ML 1 ML VIAL SUBCUT SCH ×3 (06:15→22:31)
[2020-07-09] MEDS ORDERED: ALBUMIN HUMAN 12.5 GM/50 ML RTUINJ IV ONE (08:00)
[2020-07-09] MEDS: CALCIUM ACETATE 667 MG CAPSULE NG SCH ×3 (08:47→17:30)
[2020-07-09] MEDS: MEGESTROL ACETATE 20 MG TABLET NG SCH ×2 (08:49→13:00)
--- NOTE | 2020-07-09 09:11 | PDOC CRITICAL CARE PROG REPORT ---
General Date:: 07/09/20 ICU Day:: 2 Hospital Day:: 2 Resuscitation Status: Full Code Events in the past 12 to 24 Hours:: More awake and gradually returning to normal. Review of systems relevant to events:: Renal, neurological. Reason for ICU Addmission:: Possible new seizure, hypoglycemia. - Medications: Medications reviewed and adjusted accordingly: Yes Vasopressors:: None Sedation:: None. Physical Exam Vital Signs: Temp Pulse Resp BP Pulse Ox 99.3 F 90 20 157/74 H 100 07/09/20 07:59 07/09/20 07:59 07/09/20 07:59 07/09/20 07:59 07/09/20 07:59 Intake & Output 07/08/20 07/09/20 07/10/20 06:59 06:59 06:59 Intake Total 40 430 Output Total 915 760 15 Balance -875 -330 -15 Weight 81.5 kg 83.7 kg Weight/Height Weight 83.7 kg Height 5 ft 11 in General appearance: PRESENT: no acute distress Head exam: PRESENT: atraumatic, normocephalic Eye exam: PRESENT: conjunctiva pink, EOMI, PERRLA. ABSENT: scleral icterus Ear exam: PRESENT: normal external ear exam Mouth exam: PRESENT: moist, tongue midline Respiratory exam: PRESENT: clear to auscultation prabha. ABSENT: rales, rhonchi, wheezes Cardiovascular exam: PRESENT: RRR. ABSENT: diastolic murmur, rubs, systolic murmur GI/Abdominal exam: PRESENT: normal bowel sounds, soft. ABSENT: distended, guarding, mass, organolmegaly, rebound, tenderness Rectal exam: PRESENT: deferred Gentrourinary exam: PRESENT: indwelling catheter - To be removed today. Extremities exam: PRESENT: full ROM. ABSENT: calf tenderness, clubbing, pedal edema Musculoskeletal exam: PRESENT: normal inspection Neurological exam: PRESENT: alert, awake, oriented to person, oriented to place, oriented to time, oriented to situation, CN II-XII grossly intact. ABSENT: motor sensory deficit Psychiatric exam: PRESENT: appropriate affect, normal mood. ABSENT: homicidal ideation, suicidal ideation Skin exam: PRESENT: dry, intact, warm. ABSENT: cyanosis, rash Laboratory/Radiographs Laboratory Results: 07/09/20 03:59 07/09/20 03:59 07/09/20 07/09/20 07/09/20 03:59 03:59 03:59 WBC 7.2 RBC 3.03 L Hgb 10.1 L Hct 29.3 L MCV 97 MCH 33.4 MCHC 34.5 RDW 15.8 H Plt Count 103 L Seg Neutrophils % 88.1 H Sodium 141.7 Potassium 5.9 H D Chloride 104 Carbon Dioxide 21 L Anion Gap 17 BUN 96 H Creatinine 7.92 H Est GFR ( Amer) 8 L Glucose 113 H Calcium 8.8 Phosphorus 8.5 H Magnesium 2.7 H Total Bilirubin 1.3 AST 23 Alkaline Phosphatase 89 Ammonia < 8.7 L Total Protein 6.3 Albumin 3.4 L 07/07/20 07/07/20 07/07/20 11:42 11:42 19:26 Creatine Kinase 263 H 187 H CK-MB (CK-2) 7.11 H Troponin I 0.160 07/07/20 07/08/20 07/08/20 19:26 01:37 01:37 Creatine Kinase 190 H CK-MB (CK-2) Troponin I 0.180 0.181 07/08/20 07/08/20 06:10 06:10 Creatine Kinase 178 H CK-MB (CK-2) Troponin I 0.173 Impressions: Head CT 07/07/20 00:00 IMPRESSION: NORMAL BRAIN CT WITHOUT CONTRAST. EVIDENCE OF ACUTE STROKE: NO. KUB X-Ray 07/08/20 00:00 IMPRESSION: NG tube tip in the stomach. All labs, radiographs, diagnostic studies and EKGs were personally reviewed: Yes In addition, reports of radiographic and diagnostic studies were read: Yes Assessment and Plan - Diagnosis (1) Hypoglycemia Is this a current diagnosis for this admission?: Yes Plan: Better with glucose 77-113. To stop TF, Allow diet and check sugars. (2) Disequilibrium syndrome Is this a current diagnosis for this admission?: Yes Plan: Probably not an issue. (3) Hyperkalemia Is this a current diagnosis for this admission?: Yes Plan: Resolved (4) Pulmonary edema Qualifiers: Chronicity: acute Qualified Code(s): J81.0 - Acute pulmonary edema Is this a current diagnosis for this admission?: Yes Plan: Resolved (5) Diabetes mellitus type 2 in nonobese Is this a current diagnosis for this admission?: Yes Plan: Controlled BG to low. (6) ESRD (end stage renal disease) Is this a current diagnosis for this admission?: Yes Plan: To have gentle HD today. Keep in ICU to observe reaction. (7) Diarrhea Qualifiers: Diarrhea type: functional diarrhea Qualified Code(s): K59.1 - Functional diarrhea Is this a current diagnosis for this admission?: Yes Plan: He had none yesterday. Plan Summary: Remove hernandez, NG, stop TF and allow to eat. PT and mobilization. Home soon. With such a quick recovery, clear CXR, I doubt a need for COVID testing. Critical Time Critical Time (minutes): 35 Level of Care: ICU Anticipated discharge: Home with Homehealth Anticipated DC Timeframe: within 48 hours -: 1. The care of a critical patient is a dynamic process. This note is a front office representative synopsis but static in nature. The timeframe for treatments given in order is not necessarily the actual time these treatments may have been done. 2. This patient requires critical care secondary to ongoing requirements for therapy not offered or safe outside the critical care environment. Transfer to a lower level of care will result in altered life or limb morbidity and mortality. 3. Multidisciplinary rounds completed. 4. ABCDE bundle addressed.
--- NOTE | 2020-07-09 09:54 | RADIOLOGY REPORT (SQ) ---
EXAM DESCRIPTION: CHEST SINGLE VIEW IMAGES COMPLETED DATE/TIME: 07/09/2020 6:45 am REASON FOR STUDY: congestion COMPARISON: AP view of the chest from 07/08/2020. EXAM PARAMETERS: NUMBER OF VIEWS: One view. TECHNIQUE: An AP view of the chest was obtained. RADIATION DOSE: NA LIMITATIONS: None. FINDINGS: LUNGS AND PLEURA: Unchanged radiographic appearance of the lungs and pleura. MEDIASTINUM AND HILAR STRUCTURES: Stable mediastinal and hilar contours. HEART AND VASCULAR STRUCTURES: Stable enlarged cardiac silhouette. BONES: No acute findings. HARDWARE: The left IJ central venous catheter is no longer in place. The tip of the enteric tube pro jects within the gastric lumen. There is an endovascular stent that projects within the left axilla. OTHER: No other finding. IMPRESSION: 1. The left IJ central venous catheter is no longer in place. 2. The tip of the enteric tube projects within the gastric lumen. 3. Cardiomegaly and unchanged diffuse interstitial opacities. TECHNICAL DOCUMENTATION: JOB ID: [id number] 2010 [employer]- All Rights Reserved Reading location - IP/workstation name: [email or web address]
[2020-07-09] MEDS: PANTOPRAZOLE SODIUM 40 MG VIAL IV SCH (11:09)
[2020-07-09] MEDS: HYDROCORTISONE SOD SUCCINATE INJ/PF 100 MG/2 ML SDV IV SCH (11:09)
[2020-07-09] MEDS: CHOLECALCIFEROL (D3) 1,000 UNIT (25 MCG) TABLET NG SCH (11:10)
[2020-07-09] MEDS: PRENATAL VITAMIN W DHA CAPSULE PO SCH (11:11)
--- NOTE | 2020-07-09 12:51 | PDOC PROGRESS REPORT ---
Subjective Progress Note for:: 07/09/20 Reason For Visit: Seen patient today in the ICU. He is wide awake alert and responsive and feels a whole lot better than when I saw him yesterday. He is undergoing dialysis preceded by albumin. Vital signs are stable. Dialysis orders were reviewed with the treating dialysis nurse. Labs and medications were reviewed. Physical Exam Vital Signs: Temp Pulse Resp BP Pulse Ox 99.0 F 66 17 151/96 H 99 07/09/20 12:00 07/09/20 12:00 07/09/20 12:00 07/09/20 12:00 07/09/20 12:00 Intake & Output 07/08/20 07/09/20 07/10/20 06:59 06:59 06:59 Intake Total 40 430 30 Output Total 915 058 615 Balance -875 -330 -585 Weight 81.5 kg 83.7 kg General appearance: PRESENT: no acute distress Respiratory exam: PRESENT: clear to auscultation prabha, decreased breath sounds. ABSENT: crackles Cardiovascular exam: PRESENT: +S1, +S2 GI/Abdominal exam: PRESENT: normal bowel sounds, soft. ABSENT: organomegaly, tenderness Extremities exam: ABSENT: pedal edema Neurological exam: PRESENT: alert, awake, oriented to person, oriented to place Psychiatric exam: PRESENT: appropriate affect Results Laboratory Results: 07/09/20 03:59 07/09/20 03:59 07/09/20 07/09/20 07/09/20 03:59 03:59 03:59 WBC 7.2 RBC 3.03 L Hgb 10.1 L Hct 29.3 L MCV 97 MCH 33.4 MCHC 34.5 RDW 15.8 H Plt Count 103 L Seg Neutrophils % 88.1 H Sodium 141.7 Potassium 5.9 H D Chloride 104 Carbon Dioxide 21 L Anion Gap 17 BUN 96 H Creatinine 7.92 H Est GFR ( Amer) 8 L Glucose 113 H Calcium 8.8 Phosphorus 8.5 H Magnesium 2.7 H Total Bilirubin 1.3 AST 23 Alkaline Phosphatase 89 Ammonia < 8.7 L Total Protein 6.3 Albumin 3.4 L 07/07/20 07/07/20 07/07/20 11:42 11:42 19:26 Creatine Kinase 263 H 187 H CK-MB (CK-2) 7.11 H Troponin I 0.160 07/07/20 07/08/20 07/08/20 19:26 01:37 01:37 Creatine Kinase 190 H CK-MB (CK-2) Troponin I 0.180 0.181 07/08/20 07/08/20 06:10 06:10 Creatine Kinase 178 H CK-MB (CK-2) Troponin I 0.173 Impressions: Head CT 07/07/20 00:00 IMPRESSION: NORMAL BRAIN CT WITHOUT CONTRAST. EVIDENCE OF ACUTE STROKE: NO. KUB X-Ray 07/08/20 00:00 IMPRESSION: NG tube tip in the stomach. Chest X-Ray 07/09/20 06:00 IMPRESSION: 1. The left IJ central venous catheter is no longer in place. 2. The tip of the enteric tube projects within the gastric lumen. 3. Cardiomegaly and unchanged diffuse interstitial opacities. Assessment & Plan - Diagnosis (1) ESRD (end stage renal disease) Is this a current diagnosis for this admission?: Yes Plan: Patient currently undergoing gentle dialysis. Orders were reviewed with treating dialysis nurse. Will remove less than 500 cc of fluid as patient clinically on the dry side. He has had no further diarrhea since admission apparently. (2) Disequilibrium syndrome Is this a current diagnosis for this admission?: Yes Plan: Currently resolved and stable. Monitor. (3) Diabetes mellitus type 2 in nonobese Is this a current diagnosis for this admission?: Yes Plan: As per litharge supervisor. (4) Hypertension Is this a current diagnosis for this admission?: Yes Plan: Stable. (5) Anemia in chronic kidney disease (CKD) Is this a current diagnosis for this admission?: No Plan: Monitor. (6) Diarrhea Qualifiers: Diarrhea type: functional diarrhea Qualified Code(s): K59.1 - Functional diarrhea Is this a current diagnosis for this admission?: Yes Plan: Currently looks like it is resolved. Monitor.
[2020-07-09 16:08] LABS: C DIFFICILE GDH NEGATIVE (NEGATIVE)
[2020-07-09] MEDS: DOXAZOSIN MESYLATE 2 MG TABLET NG SCH (17:30)
[2020-07-09] MEDS: ASPIRIN 81 MG TABLET, CHEWABLE NG SCH (22:31)
[2020-07-10 04:28] LABS: ABSOLUTE EOSINOPHILS # (AUTO) 0.1 10^3/uL (0.0-0.6); ABSOLUTE LYMPHOCYTES (AUTO) 1.4 10^3/uL (0.5-4.7); ABSOLUTE MONOCYTES (AUTO) 0.7 10^3/uL (0.1-1.4); ABSOLUTE NEUT (AUTO) 5.6 10^3/uL (1.7-8.2); BASOPHILS % (AUTO) 0.4 % (0-2); EOSINOPHILS % (AUTO) 1.3 % (0-6); HEMATOCRIT 25.6 % (37.9-51.0); HEMOGLOBIN 8.9 g/dL (13.5-17.0); MEAN CORPUSCULAR HEMOGLOBIN 33.7 pg (27.0-33.4); MEAN CORPUSCULAR HGB CONC 34.9 g/dL (32.0-36.0); MEAN CORPUSCULAR VOLUME 96 fl (80-97); MONOCYTES % (AUTO) 9.1 % (3-13); RED BLOOD COUNT 2.66 10^6/uL (4.35-5.55); RED CELL DISTRIBUTION WIDTH 15.4 % (11.5-14.0); SEGMENTED NEUTROPHILS % (AUTO) 71.2 % (42-78); TOTAL CELLS COUNTED % (AUTO) 100 %; WHITE BLOOD COUNT 7.8 10^3/uL (4.0-10.5)
[2020-07-10 04:43] LABS: ANION GAP 14 (5-19); BLOOD UREA NITROGEN 90 mg/dL (7-20); CALCIUM 8.5 mg/dL (8.4-10.2); CARBON DIOXIDE 23 mmol/L (22-30); CHLORIDE 100 mmol/L (98-107); GLUCOSE 101 mg/dL (75-110); PHOSPHORUS 6.6 mg/dL (2.5-4.5)
[2020-07-10 04:46] LABS: INTERNATIONAL RATION (INR) 1.12; PROTHROMBIN TIME 14.6 SEC (11.4-15.4)
[2020-07-10 04:58] LABS: PLATELET COUNT 95 10^3/uL (150-450)
[2020-07-10] MEDS: HEPARIN SOD (PORCINE) 5,000 UNIT/ML 1 ML VIAL SUBCUT SCH ×3 (05:08→21:24)
[2020-07-10 05:28] LABS: POTASSIUM 4.7 mmol/L (3.6-5.0)
--- NOTE | 2020-07-10 09:15 | RADIOLOGY REPORT (SQ) ---
EXAM DESCRIPTION: CHEST SINGLE VIEW IMAGES COMPLETED DATE/TIME: 07/10/2020 6:55 am REASON FOR STUDY: congestion COMPARISON: AP view of the chest from 07/09/2020. EXAM PARAMETERS: NUMBER OF VIEWS: One view. TECHNIQUE: An AP view of the chest was obtained. RADIATION DOSE: NA LIMITATIONS: None. FINDINGS: LUNGS AND PLEURA: Unchanged radiographic appearance of the lungs and pleura. MEDIASTINUM AND HILAR STRUCTURES: Stable mediastinal and hilar contours. HEART AND VASCULAR STRUCTURES: Stable enlarged cardiac silhouette. BONES: No acute findings. HARDWARE: The enteric tube is no longer in place. OTHER: Endovascular stent that projects within the left axilla. IMPRESSION: The enteric tube has been removed. Otherwise unchanged radiographic appearance of the c hest. TECHNICAL DOCUMENTATION: JOB ID: [id number] [employer]- All Rights Reserved Reading location - IP/workstation name: [email or web address]
[2020-07-10] MEDS: PRENATAL VITAMIN W DHA CAPSULE PO SCH (10:21)
[2020-07-10] MEDS: CHOLECALCIFEROL (D3) 1,000 UNIT (25 MCG) TABLET NG SCH (10:21)
[2020-07-10] MEDS: CALCIUM ACETATE 667 MG CAPSULE NG SCH ×3 (10:21→17:30)
[2020-07-10] MEDS: MEGESTROL ACETATE 20 MG TABLET NG SCH ×2 (10:21→14:48)
--- NOTE | 2020-07-10 11:28 | PDOC PROGRESS REPORT ---
Subjective Progress Note for:: 07/10/20 Reason For Visit: Patient seen in the ICU undergoing dialysis. He looks very comfortable and denies any specific complaints of chest pain or shortness of breath. He is eager to go home. Labs and medications were reviewed. Dialysis orders were reviewed with the treating dialysis nurse. Physical Exam Vital Signs: Temp Pulse Resp BP Pulse Ox 99.0 F 82 22 H 141/70 H 99 07/10/20 07:11 07/10/20 08:00 07/10/20 07:11 07/10/20 07:11 07/10/20 08:00 Intake & Output 07/09/20 07/10/20 07/11/20 06:59 06:59 06:59 Intake Total 430 30 Output Total 760 790 Balance -330 -760 Weight 83.7 kg 85.5 kg General appearance: PRESENT: no acute distress Respiratory exam: PRESENT: clear to auscultation prabha, decreased breath sounds. ABSENT: crackles Cardiovascular exam: PRESENT: +S1, +S2 GI/Abdominal exam: PRESENT: normal bowel sounds, soft. ABSENT: organomegaly, tenderness Extremities exam: ABSENT: pedal edema Neurological exam: PRESENT: alert, awake, oriented to person, oriented to place Psychiatric exam: PRESENT: appropriate affect Results Laboratory Results: 07/10/20 03:51 07/10/20 03:51 07/10/20 07/10/20 07/10/20 03:51 03:51 03:51 WBC 7.8 RBC 2.66 L Hgb 8.9 L Hct 25.6 L MCV 96 MCH 33.7 H MCHC 34.9 RDW 15.4 H Plt Count 95 L Seg Neutrophils % 71.2 Sodium 136.7 L Potassium 4.7 D Chloride 100 Carbon Dioxide 23 Anion Gap 14 BUN 90 H Creatinine 7.19 H Est GFR ( Amer) 9 L Glucose 101 Calcium 8.5 Phosphorus 6.6 H Magnesium 2.4 H Ammonia 14.5 07/07/20 07/07/20 07/07/20 11:42 11:42 19:26 Creatine Kinase 263 H 187 H CK-MB (CK-2) 7.11 H Troponin I 0.160 07/07/20 07/08/20 07/08/20 19:26 01:37 01:37 Creatine Kinase 190 H CK-MB (CK-2) Troponin I 0.180 0.181 07/08/20 07/08/20 06:10 06:10 Creatine Kinase 178 H CK-MB (CK-2) Troponin I 0.173 Impressions: Head CT 07/07/20 00:00 IMPRESSION: NORMAL BRAIN CT WITHOUT CONTRAST. EVIDENCE OF ACUTE STROKE: NO. KUB X-Ray 07/08/20 00:00 IMPRESSION: NG tube tip in the stomach. Chest X-Ray 07/10/20 06:00 IMPRESSION: The enteric tube has been removed. Otherwise unchanged radiographic appearance of the chest. Assessment & Plan - Diagnosis (1) ESRD (end stage renal disease) Is this a current diagnosis for this admission?: Yes Plan: Patient currently undergoing gentle dialysis. Orders were reviewed with treating dialysis nurse. Plan to remove 500 cc - 1 L of fluid. Dialysis is being supervised and patient doing well. From a renal point of view he can be discharged home to outpatient dialysis. Dialysis orders were reviewed with the treating dialysis nurse. . (2) Disequilibrium syndrome Is this a current diagnosis for this admission?: Yes Plan: Currently resolved and stable. Monitor. (3) Diabetes mellitus type 2 in nonobese Is this a current diagnosis for this admission?: Yes Plan: As per rehab aide. (4) Hypertension Is this a current diagnosis for this admission?: Yes Plan: Stable. (5) Anemia in chronic kidney disease (CKD) Is this a current diagnosis for this admission?: No Plan: Adjust erythropoietin. Monitor. (6) Diarrhea Qualifiers: Diarrhea type: functional diarrhea Qualified Code(s): K59.1 - Functional diarrhea Is this a current diagnosis for this admission?: Yes Plan: Currently looks like it is resolved. Monitor.
--- NOTE | 2020-07-10 17:19 | Progress Note ---
Provider Note Provider Note: pts f/u cxr showed no increased ptx will dc ct now repeat cxr in am if ok, will dc home
[2020-07-10] MEDS: DOXAZOSIN MESYLATE 2 MG TABLET NG SCH (17:29)
--- NOTE | 2020-07-10 17:47 | PDOC CONSULTATION ---
Consultation Consult Date: 07/10/20 Attending physician:: NEPTALI ALBERTS Provider Consulted: BERKLEY CAMPOS Consult reason:: blood per rectum History of Present Illness Admission Date/PCP: 07/07/20 19:28 History of Present Illness: MONTRELL OMALLEY is a 85 year old male, who is been admitted to [facility] proximally 4 days ago because he missed dialysis multiple times and was weak and somewhat hypotensive. He had previously undergone a colonoscopy and hemorrhoidal banding about a month ago with local GI doctor Dr. Valentin nuñez Patient has been complaining of liquid stools for the last couple of weeks and blood per rectum which is described as bright in color with some clots that has been going on almost persistently for the last 2 weeks. He was admitted to the intensive care unit for weakness after missing his dialysis. Has improved since being dialyzed while in the hospital however prior to discharge the toy packer asked general surgery to be involved for his persistent bright red blood per rectum. The patient also complains of diarrhea and thought that it was just the blood causing him to have the diarrhea not really relating it to the diet. He denies any abdominal pain no hematuria no other bleeding issues. 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 Failed. Left transposed basilic vei Social History Smoking Status: Current Every Day Smoker Electronic Cigarette use?: No Drugs: None - Advance Directive Resuscitation Status: Full Code Family History Family History: Reviewed & Not Pertinent Parental Family History Reviewed: No Children Family History Reviewed: NA Sibling(s) Family History Reviewed.: NA Medication/Allergy Home Medications: Doxazosin Mesylate 2 mg PO QHS 07/01/14 Aspirin [Aspirin 81 mg Chewable Tablet] 1 tab PO QHS 05/26/15 B Complex W-C No.20/Folic Acid [[place] Caps Softgel] 1 tab PO DAILY 08/08/16 Cholecalciferol (Vitamin D3) [Vitamin D3] 2,000 unit PO DAILY 08/08/16 Calcium Acetate [Phoslo 667 mg Capsule] 2,001 mg PO AC 06/15/18 Calcium Acetate [Phoslo 667 mg Capsule] 1,334 mg PO .SNACKS 07/07/20 Megestrol Acetate [Megace 20 mg Tablet] 40 mg PO DAILY@08,12 07/07/20 Allergies/Adverse Reactions: No Known Allergies Allergy (Verified 06/18/18 09:03) Review of Systems Constitutional: PRESENT: as per HPI, chills, fatigue Eyes: ABSENT: as per HPI, visual disturbances, other Ears: ABSENT: as per HPI, hearing changes, other Nose, Mouth, and Throat: ABSENT: as per HPI, headache(s), mouth pain, sore throat, vertigo, other Breasts: ABSENT: as per HPI, other Cardiovascular: ABSENT: as per HPI, chest pain, dyspnea on exertion, edema, orthropnea, palpitations, other Respiratory: ABSENT: as per HPI, cough, dyspnea, hemoptysis, sputum, other Gastrointestinal: PRESENT: as per HPI, hematochezia Musculoskeletal: PRESENT: as per HPI. ABSENT: back pain, deformity, joint swelling, muscle weakness, other Integumentary: ABSENT: rash, wounds Neurological: ABSENT: abnormal gait, abnormal speech, confusion, dizziness, focal weakness, syncope Psychiatric: ABSENT: anxiety, depression, homidical ideation, suicidal ideation Endocrine: ABSENT: cold intolerance, heat intolerance, polydipsia, polyuria Hematologic/Lymphatic: ABSENT: easy bleeding, easy bruising Allergic/Immunologic: ABSENT: as per HPI, seasonal rhinorrhea, other Physical Exam Vital Signs: Temp Pulse Resp BP Pulse Ox 99.0 F 82 20 133/66 H 100 07/10/20 10:00 07/10/20 08:00 07/10/20 12:40 07/10/20 12:40 07/10/20 09:38 Intake & Output 07/09/20 07/10/20 07/11/20 06:59 06:59 06:59 Intake Total 430 30 Output Total 760 790 Balance -330 -760 Weight 83.7 kg 85.5 kg 85.5 kg General appearance: PRESENT: no acute distress, well-nourished Head exam: PRESENT: normocephalic Eye exam: PRESENT: EOMI Ear exam: PRESENT: normal external ear exam Mouth exam: PRESENT: moist Teeth exam: PRESENT: poor dentation Neck exam: PRESENT: full ROM Respiratory exam: PRESENT: clear to auscultation prabha Cardiovascular exam: PRESENT: RRR Pulses: PRESENT: normal radial pulses, normal femoral pulses Vascular exam: PRESENT: normal capillary refill Breast: PRESENT: Normal GI/Abdominal exam: PRESENT: soft Rectal exam: PRESENT: deferred Extremities exam: PRESENT: full ROM Musculoskeletal exam: PRESENT: full ROM Neurological exam: PRESENT: alert, awake, oriented to person Psychiatric exam: PRESENT: agitated, appropriate affect Skin exam: PRESENT: dry Results Laboratory Results: 07/10/20 03:51 07/10/20 03:51 07/10/20 07/10/20 07/10/20 03:51 03:51 03:51 WBC 7.8 RBC 2.66 L Hgb 8.9 L Hct 25.6 L MCV 96 MCH 33.7 H MCHC 34.9 RDW 15.4 H Plt Count 95 L Seg Neutrophils % 71.2 Sodium 136.7 L Potassium 4.7 D Chloride 100 Carbon Dioxide 23 Anion Gap 14 BUN 90 H Creatinine 7.19 H Est GFR ( Amer) 9 L Glucose 101 Calcium 8.5 Phosphorus 6.6 H Magnesium 2.4 H Ammonia 14.5 07/07/20 07/07/20 07/07/20 11:42 11:42 19:26 Creatine Kinase 263 H 187 H CK-MB (CK-2) 7.11 H Troponin I 0.160 07/07/20 07/08/20 07/08/20 19:26 01:37 01:37 Creatine Kinase 190 H CK-MB (CK-2) Troponin I 0.180 0.181 07/08/20 07/08/20 06:10 06:10 Creatine Kinase 178 H CK-MB (CK-2) Troponin I 0.173 Impressions: Head CT 07/07/20 00:00 IMPRESSION: NORMAL BRAIN CT WITHOUT CONTRAST. EVIDENCE OF ACUTE STROKE: NO. KUB X-Ray 07/08/20 00:00 IMPRESSION: NG tube tip in the stomach. Chest X-Ray 07/10/20 06:00 IMPRESSION: The enteric tube has been removed. Otherwise unchanged radiographic appearance of the chest. Assessment & Plan - Plan Summary Plan Summary: Impression is persistent rectal bleeding status post a hemorrhoidal banding a bout a month ago He had a recent colonoscopy about a month ago which reported by his patient's son is removing one polyp otherwise it was a normal colonoscopy. Recommendations we will obtain records from Dr. colon office about the colonoscopy. Will make the patient n.p.o. after midnight tonight and plan on possible endoscopy and exam under anesthesia with possible re-banding and/or oversewing b leeding hemorrhoid.
--- NOTE | 2020-07-10 18:33 | Progress Note ---
Provider Note Provider Note: Discussed the patient and his hospital stay thus far with Dr. Galvan vet tech who stated the patient was initially managed for dialysis needs, later had a seizure, and then the past few days has been having rectal bleeding. Loss Prevention Manager consulted general surgery is agreed to see the patient. I have prescribed Anusol rectal steroid. Please change the attending to my name when the patient arrives on the floor. We will follow-up with the patient in the morning to continue his care.
[2020-07-10] MEDS: HYDROCORTISONE ACETATE 25 MG SUPP.RECT PR SCH (18:51)
[2020-07-10] MEDS: ASPIRIN 81 MG TABLET, CHEWABLE NG SCH (21:21)
[2020-07-11] MEDS: HEPARIN SOD (PORCINE) 5,000 UNIT/ML 1 ML VIAL SUBCUT SCH ×2 (07:10→13:05)
[2020-07-11] MEDS: MEGESTROL ACETATE 20 MG TABLET NG SCH ×2 (09:14→12:16)
[2020-07-11] MEDS: CALCIUM ACETATE 667 MG CAPSULE NG SCH ×3 (09:18→17:45)
--- NOTE | 2020-07-11 11:14 | RADIOLOGY REPORT (SQ) ---
EXAM DESCRIPTION: CHEST SINGLE VIEW IMAGES COMPLETED DATE/TIME: 07/11/2020 7:56 am REASON FOR STUDY: f/u ptx COMPARISON: Chest radiograph 07/10/2020 NUMBER OF VIEWS: One view. TECHNIQUE: Single frontal radiographic view of the chest acquired. LIMITATIONS: None. FINDINGS: LUNGS AND PLEURA: Similar chronic appearing fibrotic markings in the lungs bilaterally. N o new focal consolidation. No pleural effusion or pneumothorax. MEDIASTINUM AND HILAR STRUCTURES: No masses. Contour normal. HEART AND VASCULAR STRUCTURES: Mild cardiomegaly. Normal vasculature. BONES: No acute findings. HARDWARE: Vascular stent projects over the left axilla. OTHER: No other significant finding. IMPRESSION: No significant interval change. TECHNICAL DOCUMENTATION: JOB ID: [id number] 2010 [employer]- All Rights Reserved Reading location - IP/workstation name: [email or web address]
[2020-07-11] MEDS: HYDROCORTISONE ACETATE 25 MG SUPP.RECT PR SCH ×2 (12:23→17:47)
[2020-07-11] MEDS ORDERED: MIDAZOLAM 2 MG/2 ML INJ ONE (12:50)
[2020-07-11] MEDS ORDERED: FENTANYL CITRATE INJ/PF 100 MCG/2 ML AMPUL ONE (12:50)
[2020-07-11] MEDS ORDERED: ONDANSETRON HCL INJ/PF 4 MG/2 ML SDV ONE (12:50)
[2020-07-11] MEDS ORDERED: PROPOFOL INJ 200 MG/20 ML VIAL IV ONE (12:50)
--- NOTE | 2020-07-11 13:08 | PDOC PROGRESS REPORT ---
Subjective Progress Note for:: 07/11/20 Subjective:: 85-year-old male with persistent rectal bleeding. The patient had a normal colonoscopy approximately 1 month ago. He has known bleeding internal hemorrhoids. The patient reports continued bleeding with bowel movements. He denies any fevers, chills, nausea, vomiting, dizziness, blurry vision, headache, chest pain, shortness of breath. Reason For Visit: SEIZURES,NEW ONSET CHRONIC RENAL FAILURE, HD VOLUM Physical Exam Vital Signs: Temp Pulse Resp BP Pulse Ox 99.0 F 79 19 143/43 H 91 L 07/11/20 09:04 07/11/20 09:04 07/11/20 09:04 07/11/20 09:04 07/11/20 09:04 Intake & Output 07/10/20 07/11/20 07/12/20 06:59 06:59 06:59 Intake Total 30 Output Total 790 800 Balance -760 -800 Weight 85.5 kg 85.7 kg General appearance: PRESENT: no acute distress, cooperative Head exam: PRESENT: atraumatic Eye exam: ABSENT: scleral icterus Mouth exam: PRESENT: moist, neck supple Neck exam: ABSENT: tracheal deviation, tracheostomy Respiratory exam: PRESENT: unlabored. ABSENT: tachypnea, wheezes Cardiovascular exam: ABSENT: tachycardia GI/Abdominal exam: PRESENT: soft. ABSENT: tenderness Rectal exam: PRESENT: deferred Extremities exam: ABSENT: clubbing Musculoskeletal exam: ABSENT: deformity Neurological exam: PRESENT: alert, awake, oriented to person, oriented to place Psychiatric exam: ABSENT: agitated, anxious, depressed Focused psych exam: ABSENT: delusional Skin exam: ABSENT: cyanosis, erythema, jaundice Results Laboratory Results: 07/10/20 03:51 07/10/20 03:51 07/07/20 07/07/20 07/07/20 11:42 11:42 19:26 Creatine Kinase 263 H 187 H CK-MB (CK-2) 7.11 H Troponin I 0.160 07/07/20 07/08/20 07/08/20 19:26 01:37 01:37 Creatine Kinase 190 H CK-MB (CK-2) Troponin I 0.180 0.181 07/08/20 07/08/20 06:10 06:10 Creatine Kinase 178 H CK-MB (CK-2) Troponin I 0.173 Impressions: Head CT 07/07/20 00:00 IMPRESSION: NORMAL BRAIN CT WITHOUT CONTRAST. EVIDENCE OF ACUTE STROKE: NO. KUB X-Ray 07/08/20 00:00 IMPRESSION: NG tube tip in the stomach. Chest X-Ray 07/11/20 06:00 IMPRESSION: No significant interval change. Assessment & Plan - Diagnosis (1) Rectal bleeding Is this a current diagnosis for this admission?: Yes - Time Anticipated Discharge Disposition: unknown Anticipated Discharge Timeframe: unknown - Plan Summary Plan Summary: 85-year-old male with persistent rectal bleeding, causing anemia. The patient has a history of hemorrhoidal bleeding. I suspect this is the most likely cause of his difficulty. Plan for rectal exam under anesthesia with removal and/or ligation of internal hemorrhoids. Risks/benefits discussed, informed consent obtained, and all questions answered.
[2020-07-11] MEDS ORDERED: BACITRACIN ZINC OINTMENT 15 GM ONE (13:42)
[2020-07-11] MEDS ORDERED: LIDOCAINE 2% JELLY 30 ML TUBE ONE (13:42)
[2020-07-11] MEDS ORDERED: BUPIVACAINE INJ/PF LIPOSOME/PF 266 MG/20 ML SDV ONE (13:42)
--- NOTE | 2020-07-11 14:59 | Operative Report ---
Nonrecallable Operative Report DATE OF SURGERY: 07/11/20 PREOPERATIVE DIAGNOSIS: Bleeding internal/external hemorrhoids POSTOPERATIVE DIAGNOSIS: 1. Internal and external hemorrhoids. 2. Active bleeding from right anterior internal hemorrhoid. OPERATION: 2 column hemorrhoidectomy. Right anterior and right posterior columns excised. SURGEON: LIZBETH CHANG ANESTHESIA: LMAC TISSUE REMOVED OR ALTERED: Right anterior and right posterior hemorrhoid columns COMPLICATIONS: None apparent ESTIMATED BLOOD LOSS: Minimal PROCEDURE: Drains/implants: None. Procedure in detail: After informed consent was obtained from the patient, he was placed into the prone jackknife position in the operating room. The area of the anus was prepped and draped in a normal sterile fashion. 20 cc of Exparel was injected for an anal block. A Hill-Badillo retractor was inserted into the anus. There were enlarged hemorrhoids in the right anterior and right posterior positions. The right anterior internal hemorrhoid was actively bleeding. There was a rubber band still in place in this position. The hemorrhoid in the right anterior position was excised from the internal to the external position. This was done using Bovie electrocautery. The resulting defect was closed using 3-0 Vicryl suture in running, locking fashion. Great care was taken to reapproximate mucosa to mucosa, anoderm to anoderm, and skin to skin. Once this was completed, attention was turned to the right posterior position. The right posterior hemorrhoid was excised in similar fashion, using Bovie electrocautery. The resulting defect was closed using 3-0 Vicryl suture in running, locking fashion. Again, great care was taken to reapproximate mucosa to mucosa, anoderm to anoderm, and skin to skin. Once this was completed, the anus was inspected. It was found to be completely hemostatic. There was no evidence of other bleeding. The left lateral hemorrhoid column was not significantly enlarged, and had no evidence of bleeding. A dressing was placed. At this time, the procedure was concluded. All sponge, instrument, and needle counts were correct x2. Condition: Stable.
[2020-07-11] MEDS: CHOLECALCIFEROL (D3) 1,000 UNIT (25 MCG) TABLET NG SCH (17:41)
[2020-07-11] MEDS: PRENATAL VITAMIN W DHA CAPSULE PO SCH (17:42)
[2020-07-11] MEDS: DOXAZOSIN MESYLATE 2 MG TABLET NG SCH (17:46)
--- NOTE | 2020-07-11 18:28 | PDOC PROGRESS REPORT ---
Subjective Subjective:: 07/10/2020 Discussed the patient and his hospital stay thus far with Dr. Galvan internet salesperson who stated the patient was initially managed for dialysis needs, later had a seizure, and then the past few days has been having rectal bleeding. Church Supervisor consulted general surgery is agreed to see the patient. I have pre scribed Anusol rectal steroid. Please change the attending to my name when the patient arrives on the floor. We will follow-up with the patient in the morning to continue his care. 07/11/2020 Patient seems to be doing overall quite well today. Hemoglobin lower today at 8.9. COVID testing is pending for placement at SNF. Chest x-ray is notably improved. Patient has no new complaints today. Per general surgery: "Impression is persistent rectal bleeding status post a hemorrhoidal banding abo ut a month ago He had a recent colonoscopy about a month ago which reported by his patient's son is removing one polyp otherwise it was a normal colonoscopy. Recommendations we will obtain records from Dr. colon office about the colonoscopy. Will make the patient n.p.o. after midnight tonight and plan on possible endoscopy and exam under anesthesia with possible re-banding and/or oversewing bleeding hemorrhoid." Reason For Visit: SEIZURES,NEW ONSET CHRONIC RENAL FAILURE, HD VOLUM Physical Exam Vital Signs: Temp Pulse Resp BP Pulse Ox 97.9 F 61 24 H 114/54 L 100 07/11/20 17:50 07/11/20 17:50 07/11/20 17:50 07/11/20 17:50 07/11/20 17:50 Intake & Output 07/10/20 07/11/20 07/12/20 06:59 06:59 06:59 Intake Total 30 200 Output Total 790 800 25 Balance -760 -800 175 Weight 85.5 kg 85.7 kg General appearance: PRESENT: no acute distress, well-developed, well-nourished Head exam: PRESENT: atraumatic, normocephalic Eye exam: PRESENT: conjunctiva pink Mouth exam: PRESENT: moist Respiratory exam: PRESENT: clear to auscultation prabha. ABSENT: rales, rhonchi, wheezes Cardiovascular exam: PRESENT: RRR. ABSENT: diastolic murmur, rubs, systolic murmur GI/Abdominal exam: PRESENT: normal bowel sounds, soft. ABSENT: distended, guarding, mass, organolmegaly, rebound, tenderness Neurological exam: PRESENT: alert, awake, oriented to person, oriented to place, oriented to time, oriented to situation Psychiatric exam: PRESENT: appropriate affect, normal mood Skin exam: PRESENT: dry, intact, warm Results Laboratory Results: 07/10/20 03:51 07/10/20 03:51 07/07/20 07/07/20 07/07/20 11:42 11:42 19:26 Creatine Kinase 263 H 187 H CK-MB (CK-2) 7.11 H Troponin I 0.160 07/07/20 07/08/20 07/08/20 19:26 01:37 01:37 Creatine Kinase 190 H CK-MB (CK-2) Troponin I 0.180 0.181 07/08/20 07/08/20 06:10 06:10 Creatine Kinase 178 H CK-MB (CK-2) Troponin I 0.173 Impressions: Head CT 07/07/20 00:00 IMPRESSION: NORMAL BRAIN CT WITHOUT CONTRAST. EVIDENCE OF ACUTE STROKE: NO. KUB X-Ray 07/08/20 00:00 IMPRESSION: NG tube tip in the stomach. Chest X-Ray 07/11/20 06:00 IMPRESSION: No significant interval change. Assessment and Plan - Diagnosis (1) Anemia in chronic kidney disease (CKD) Qualifiers: Chronic kidney disease stage: on chronic dialysis Qualified Code(s): N18.6 - End stage renal disease; D63.1 - Anemia in chronic kidney disease; Z99.2 - Dependence on renal dialysis Is this a current diagnosis for this admission?: Yes (2) Rectal bleeding Is this a current diagnosis for this admission?: Yes Plan: General surgery consulted: Patient had recent colonoscopy which showed some polyps. He is also had a prior hemorrhoidal banding. General surgery possible planning endoscopy Trend hemoglobin and transfuse for values below 7 Anusol suppositories (3) Seizure Is this a current diagnosis for this admission?: Yes (4) Diabetes mellitus type 2 in nonobese Is this a current diagnosis for this admission?: Yes Plan: Accu-Cheks Sliding scale insulin (5) ESRD (end stage renal disease) Is this a current diagnosis for this admission?: Yes Plan: Continued on dialysis per nephrology orders (6) Hypertension Is this a current diagnosis for this admission?: Yes Plan: Improved with dialysis sessions - Time Time Spent with patient: 15-24 minutes Medications reviewed and adjusted accordingly: Yes Anticipated Discharge Disposition: Assisted Facility Anticipated Discharge Timeframe: within 48 hours - Inpatient Certification Based on my medical assessment, after consideration of the patient's comorbidi ties, presenting symptoms, or acuity I expect that the services needed warrant INPATIENT care.: Yes I certify that my determination is in accordance with my understanding of Daniel greco's requirements for reasonable and necessary INPATIENT services [42 CFR 412.3e].: Yes Medical Necessity: Significant Comorbidiites Make Outpatient Treatment Too Risky, Need Close Monitoring Due to Risk of Patient Decompensation, Risk of Complication if Not Cared For in Hospital, Risk of Diagnosis Which Will Require Inpatient Eval/Care/Monitoring
[2020-07-11] MEDS: ACETAMINOPHEN 325 MG TABLET PO PRN ×2 (18:52→22:12)
[2020-07-11] MEDS: ASPIRIN 81 MG TABLET, CHEWABLE NG SCH (22:12)
[2020-07-12] MEDS: CALCIUM ACETATE 667 MG CAPSULE NG SCH ×3 (07:48→17:09)
[2020-07-12] MEDS: MEGESTROL ACETATE 20 MG TABLET NG SCH ×2 (07:48→13:14)
[2020-07-12] MEDS: CHOLECALCIFEROL (D3) 1,000 UNIT (25 MCG) TABLET NG SCH (09:20)
[2020-07-12] MEDS: PRENATAL VITAMIN W DHA CAPSULE PO SCH (09:20)
--- NOTE | 2020-07-12 09:46 | RADIOLOGY REPORT (SQ) ---
EXAM DESCRIPTION: CHEST SINGLE VIEW IMAGES COMPLETED DATE/TIME: 07/12/2020 6:26 am REASON FOR STUDY: f/u ptx COMPARISON: 07/11/2020 EXAM PARAMETERS: NUMBER OF VIEWS: One view. TECHNIQUE: Single frontal radiographic view of the chest acquired. RADIATION DOSE: NA LIMITATIONS: None. FINDINGS: LUNGS AND PLEURA: No significant interval change in increased interstitial prominence in a peripheral distribution in both lungs, probably representing underlying pulmonary fibrosis. No foca l consolidation or pleural effusion. No pneumothorax. MEDIASTINUM AND HILAR STRUCTURES: No masses. Contour normal. HEART AND VASCULAR STRUCTURES: Moderate cardiomegaly is stable. No pulmonary vascular congestion. BONES: No significant abnormality. HARDWARE: Left axillary stent and surgical clips are unchanged. OTHER: No other significant finding. IMPRESSION: No significant interval change. Underlying moderate to severe pulmonary fibrosis is sta ble. TECHNICAL DOCUMENTATION: JOB ID: [id number] 2010 [employer]- All Rights Reserved Reading location - IP/workstation name: [email or web address]
[2020-07-12 10:09] LABS: AMORPHOUS SEDIMENT,URINE TRACE /HPF; APPEARANCE,URINE SLIGHTLY-CLOUDY; BILIRUBIN,URINE NEGATIVE (NEGATIVE); COLOR,URINE YELLOW; GLUCOSE, URINE >=500 mg/dL (NEGATIVE); KETONES,URINE NEGATIVE (NEGATIVE); PROTEIN,URINE >=500 mg/dL (NEGATIVE); URINE SPECIFIC GRAVITY 1.009; UROBILINOGEN,URINE NEGATIVE mg/dL (<2.0)
[2020-07-12 10:30] LABS: HEMATOCRIT 22.5 % (37.9-51.0); MEAN CORPUSCULAR HGB CONC 34.1 g/dL (32.0-36.0); MEAN CORPUSCULAR VOLUME 97 fl (80-97); RED BLOOD COUNT 2.32 10^6/uL (4.35-5.55); RED CELL DISTRIBUTION WIDTH 15.2 % (11.5-14.0)
[2020-07-12 10:46] LABS: ANION GAP 12 (5-19); BLOOD UREA NITROGEN 80 mg/dL (7-20); CALCIUM 8.3 mg/dL (8.4-10.2); CARBON DIOXIDE 25 mmol/L (22-30); CHLORIDE 100 mmol/L (98-107); GLUCOSE 257 mg/dL (75-110); POTASSIUM 4.4 mmol/L (3.6-5.0)
[2020-07-12 10:55] LABS: PLATELET COUNT 88 10^3/uL (150-450); WHITE BLOOD COUNT 17.8 10^3/uL (4.0-10.5)
[2020-07-12 11:02] LABS: ABSOLUTE LYMPHOCYTES# (MANUAL) 1.1 10^3/uL (0.5-4.7); ABSOLUTE MONOCYTES # (MANUAL) 0.7 10^3/uL (0.1-1.4); BAND NEUTROPHILS % (MANUAL) 7 % (3-5); BASOPHILS % (MANUAL) 0 % (0-2); EOSINOPHILS % (MANUAL) 0 % (0-6); LYMPHOCYTES % (MANUAL) 6 % (13-45); MONOCYTES % (MANUAL) 4 % (3-13); SEGMENTED NEUTROPHILS % (MAN) 83 % (42-78); TOTAL CELLS COUNTED 100
[2020-07-12 11:05] LABS: ANISOCYTOSIS SLIGHT; OVALOCYTES 1+; PLATELET COMMENT DECREASED; TOXIC GRANULATION SLIGHT
[2020-07-12 11:07] LABS: HEMOGLOBIN 7.7 g/dL (13.5-17.0)
--- NOTE | 2020-07-12 12:50 | PDOC PROGRESS REPORT ---
Subjective Progress Note for:: 07/12/20 Reason For Visit: SEIZURES,NEW ONSET CHRONIC RENAL FAILURE, HD VOLUM Physical Exam Vital Signs: Temp Pulse Resp BP Pulse Ox 97.9 F 85 19 107/50 L 100 07/12/20 10:00 07/12/20 07:57 07/12/20 07:57 07/12/20 07:57 07/12/20 07:57 Intake & Output 07/11/20 07/12/20 07/13/20 06:59 06:59 06:59 Intake Total 670 Output Total 800 25 Balance -800 645 Weight 85.7 kg 86.3 kg Results Laboratory Results: 07/12/20 09:45 07/12/20 09:45 07/12/20 07/12/20 07/12/20 09:35 09:45 09:45 WBC 17.8 H D RBC 2.32 L Hgb 7.7 L Hct 22.5 L MCV 97 MCH 33.0 MCHC 34.1 RDW 15.2 H Plt Count 88 L Seg Neutrophils % Not Reportable Sodium 136.9 L Potassium 4.4 Chloride 100 Carbon Dioxide 25 Anion Gap 12 BUN 80 H Creatinine 7.91 H Est GFR ( Amer) 8 L Glucose 257 H Calcium 8.3 L Urine Color YELLOW Urine Appearance SLIGHTLY-CLOUDY Urine pH 7.0 Ur Specific [place] 1.009 Urine Protein >=500 H Urine Glucose (UA) >=500 H Urine Ketones NEGATIVE Urine Blood SMALL H Urine RBC (Auto) 2 07/07/20 07/07/20 07/07/20 11:42 11:42 19:26 Creatine Kinase 263 H 187 H CK-MB (CK-2) 7.11 H Troponin I 0.160 07/07/20 07/08/20 07/08/20 19:26 01:37 01:37 Creatine Kinase 190 H CK-MB (CK-2) Troponin I 0.180 0.181 07/08/20 07/08/20 06:10 06:10 Creatine Kinase 178 H CK-MB (CK-2) Troponin I 0.173 Impressions: Head CT 07/07/20 00:00 IMPRESSION: NORMAL BRAIN CT WITHOUT CONTRAST. EVIDENCE OF ACUTE STROKE: NO. KUB X-Ray 07/08/20 00:00 IMPRESSION: NG tube tip in the stomach. Chest X-Ray 07/12/20 06:00 IMPRESSION: No significant interval change. Underlying moderate to severe pulmonary fibrosis is stable. Assessment & Plan - Diagnosis (1) Rectal bleeding Is this a current diagnosis for this admission?: Yes - Time Anticipated Discharge Disposition: unknown Anticipated Discharge Timeframe: unknown - Plan Summary Plan Summary: 85 y/o M s/p excision of bleeding internal hemorrhoids yesterday. Per report the patient has not experienced any more bloody bowel movements. Continue to monitor for ongoing bleeding. Minimize anticoagulants/antiplatelets. Lidocaine ointment to the rectum for pain control. Ultram PRN. Surgery will follow. OK for d ischarge from a surgical perspective.
[2020-07-12] MEDS: LIDOCAINE 4% TOPICAL SOLN 50 ML TOP SCH ×3 (13:12→17:09)
[2020-07-12] MEDS: CEFTRIAXONE 1 GM/D5W RTU 1 GM/50 ML RTUPB IV SCH (13:13)
[2020-07-12] MEDS ORDERED: DEXTROSE 50%-WATER SYRINGE 25 GM/50 ML DOSE IV PRN (13:30)
[2020-07-12] MEDS ORDERED: DEXTROSE 40% GEL 15 GM TUBE PO PRN (13:30)
[2020-07-12] MEDS ORDERED: GLUCAGON,HUMAN RECOMB 1 MG INJ IM PRN (13:30)
[2020-07-12] MEDS ORDERED: DEXTROSE 40% GEL 15 GM TUBE X 2 PO PRN (13:30)
[2020-07-12] MEDS ORDERED: DEXTROSE 50%-WATER SYRINGE 12.5 GM/25 ML DOSE IV PRN (13:30)
--- NOTE | 2020-07-12 14:36 | RADIOLOGY REPORT (SQ) ---
EXAM DESCRIPTION: CHEST 2 VIEWS IMAGES COMPLETED DATE/TIME: 07/12/2020 11:41 am REASON FOR STUDY: pneumonia suspected COMPARISON: 07/12/2020 at 0730 hours. 07/11/2020. 07/08/2020. 10/10/2016. EXAM PARAMETERS: NUMBER OF VIEWS: two views TECHNIQUE: Digital Frontal and Lateral radiographic views of the chest acquired. RADIATION DOSE: NA LIMITATIONS: 07/08/2020. FINDINGS: LUNGS AND PLEURA: Diffuse increased interstitial prominence in both lungs superimposed on hyperinflated lungs, stable over multiple previous examinations. No focal consolidation. No pleural effusion or pneumothorax. MEDIASTINUM AND HILAR STRUCTURES: No masses or contour abnormalities. HEART AND VASCULAR STRUCTURES: Moderate cardiomegaly. No pulmonary vascular congestion. BONES: No acute findings. HARDWARE: Vascular stent in the left axilla and left axillary clips are unchanged. OTHER: No other significant finding. IMPRESSION: No significant interval change. No focal consolidation. Underlying pulmonary fibrosis is stable. TECHNICAL DOCUMENTATION: JOB ID: [id number] [employer]- All Rights Reserved Reading location - IP/workstation name: [email or web address]
[2020-07-12] MEDS: INSULIN LISPRO 100 UNIT/ML 3 ML VIAL SUBCUT SCH ×2 (17:10→21:49)
[2020-07-12] MEDS: DOXAZOSIN MESYLATE 2 MG TABLET NG SCH (17:10)
--- NOTE | 2020-07-12 18:32 | PDOC PROGRESS REPORT ---
Subjective Subjective:: 07/10/2020 Discussed the patient and his hospital stay thus far with Dr. Galvan firearms model maker who stated the patient was initially managed for dialysis needs, later had a seizure, and then the past few days has been having rectal bleeding. Ash Handler consulted general surgery is agreed to see the patient. I have pre scribed Anusol rectal steroid. Please change the attending to my name when the patient arrives on the floor. We will follow-up with the patient in the morning to continue his care. 07/11/2020 Patient seems to be doing overall quite well today. Hemoglobin lower today at 8.9. COVID testing is pending for placement at SNF. Chest x-ray is notably improved. Patient has no new complaints today. Per general surgery: "Impression is persistent rectal bleeding status post a hemorrhoidal banding abo ut a month ago He had a recent colonoscopy about a month ago which reported by his patient's son is removing one polyp otherwise it was a normal colonoscopy. Recommendations we will obtain records from Dr. colon office about the colonoscopy. Will make the patient n.p.o. after midnight tonight and plan on possible endoscopy and exam under anesthesia with possible re-banding and/or oversewing bleeding hemorrhoid." 07/12/2020 General surgery cleared patient for discharge, no further significant bleeding from rectum after hemorrhoidectomy. However, patient has developed fever up to 103 with tachypnea and elevated blood pressure. Patient has documented urinary retention though this was not addressed overnight. I ordered a straight cath with UA and reflex culture showed UTI with massive proteinuria and glucosuria. Nephrology has not seen the patient since Monday I would like their opinion on the massive amount of proteinuria and glucosuria seen on UA and if there is anything we need to do about this likely nephrotic syndrome. Chest x-ray PA/lateral did not show any significant infiltrates or pneumonia. Reason For Visit: SEIZURES,NEW ONSET CHRONIC RENAL FAILURE, HD VOLUM Physical Exam Vital Signs: Temp Pulse Resp BP Pulse Ox 98.9 F 112 H 20 122/42 L 97 07/12/20 11:04 07/12/20 14:06 07/12/20 14:06 07/12/20 11:04 07/12/20 14:06 Intake & Output 07/11/20 07/12/20 07/13/20 06:59 06:59 06:59 Intake Total 670 690 Output Total 800 25 40 Balance -800 645 650 Weight 85.7 kg 86.3 kg Exam: General appearance: PRESENT: no acute distress, well-developed, well-nourished, states his stools are not as bloody as before Head exam: PRESENT: atraumatic, normocephalic Eye exam: PRESENT: conjunctiva pink Mouth exam: PRESENT: moist Respiratory exam: PRESENT: clear to auscultation prabha. ABSENT: rales, rhonchi, wheezes Cardiovascular exam: PRESENT: RRR. ABSENT: diastolic murmur, rubs, systolic murmur GI/Abdominal exam: PRESENT: normal bowel sounds, soft. ABSENT: distended, guarding, mass, organolmegaly, rebound, tenderness Neurological exam: PRESENT: alert, awake, oriented to person, oriented to place, oriented to time, oriented to situation Psychiatric exam: PRESENT: appropriate affect, normal mood Skin exam: PRESENT: dry, intact, warm Results Laboratory Results: 07/12/20 09:45 07/12/20 09:45 07/12/20 07/12/20 07/12/20 09:35 09:45 09:45 WBC 17.8 H D RBC 2.32 L Hgb 7.7 L Hct 22.5 L MCV 97 MCH 33.0 MCHC 34.1 RDW 15.2 H Plt Count 88 L Seg Neutrophils % Not Reportable Sodium 136.9 L Potassium 4.4 Chloride 100 Carbon Dioxide 25 Anion Gap 12 BUN 80 H Creatinine 7.91 H Est GFR ( Amer) 8 L Glucose 257 H Calcium 8.3 L Urine Color YELLOW Urine Appearance SLIGHTLY-CLOUDY Urine pH 7.0 Ur Specific [place] 1.009 Urine Protein >=500 H Urine Glucose (UA) >=500 H Urine Ketones NEGATIVE Urine Blood SMALL H Urine RBC (Auto) 2 07/07/20 07/07/20 07/07/20 11:42 11:42 19:26 Creatine Kinase 263 H 187 H CK-MB (CK-2) 7.11 H Troponin I 0.160 07/07/20 07/08/20 07/08/20 19:26 01:37 01:37 Creatine Kinase 190 H CK-MB (CK-2) Troponin I 0.180 0.181 07/08/20 07/08/20 06:10 06:10 Creatine Kinase 178 H CK-MB (CK-2) Troponin I 0.173 Impressions: Head CT 07/07/20 00:00 IMPRESSION: NORMAL BRAIN CT WITHOUT CONTRAST. EVIDENCE OF ACUTE STROKE: NO. KUB X-Ray 07/08/20 00:00 IMPRESSION: NG tube tip in the stomach. Chest X-Ray 07/12/20 06:00 IMPRESSION: No significant interval change. Underlying moderate to severe pulmonary fibrosis is stable. Assessment and Plan - Diagnosis (1) UTI (urinary tract infection) Qualifiers: Urinary tract infection type: acute cystitis Hematuria presence: with hematuria Qualified Code(s): N30.01 - Acute cystitis with hematuria Is this a current diagnosis for this admission?: Yes Plan: UA infected, culture pending Ceftriaxone Urinary retention present, straight cath, recheck bladder scan and if he is still Retaining Place, Cuadra catheter (2) Anemia in chronic kidney disease (CKD) Qualifiers: Chronic kidney disease stage: on chronic dialysis Qualified Code(s): N18.6 - End stage renal disease; D63.1 - Anemia in chronic kidney disease; Z99.2 - Dependence on renal dialysis Is this a current diagnosis for this admission?: Yes (3) Rectal bleeding Is this a current diagnosis for this admission?: Yes Plan: General surgery consulted: Patient had recent colonoscopy which showed some polyps. He is also had a prior hemorrhoidal banding. Now status post hemorrhoidectomy by general surgery here, general surgery signed off Trend hemoglobin and transfuse for values below 7 Anusol suppositories Resolved (4) Seizure Is this a current diagnosis for this admission?: Yes Plan: No further seizures (5) Diabetes mellitus type 2 in nonobese Is this a current diagnosis for this admission?: Yes (6) ESRD (end stage renal disease) Is this a current diagnosis for this admission?: Yes (7) Hypertension Is this a current diagnosis for this admission?: Yes (8) Proteinuria Qualifiers: Proteinuria type: unspecified Qualified Code(s): R80.9 - Proteinuria, unspecified Is this a current diagnosis for this admission?: Yes Plan: Nephrology following, need their opinion on nephrotic range proteinuria (9) Disequilibrium syndrome Is this a current diagnosis for this admission?: Yes - Time Time Spent with patient: 25-34 minutes Medications reviewed and adjusted accordingly: Yes Anticipated Discharge Disposition: Alf Facility Anticipated Discharge Timeframe: within 48 hours - Inpatient Certification Based on my medical assessment, after consideration of the patient's comorbidit ies, presenting symptoms, or acuity I expect that the services needed warrant INPATIENT care.: Yes I certify that my determination is in accordance with my understanding of Me sheila's requirements for reasonable and necessary INPATIENT services [42 CFR 412.3e].: Yes Medical Necessity: Significant Comorbidiites Make Outpatient Treatment Too Risky, Need Close Monitoring Due to Risk of Patient Decompensation, Need for IV Antibiotics, Risk of Complication if Not Cared For in Hospital, Risk of Diagnosis Which Will Require Inpatient Eval/Care/Monitoring
[2020-07-12] MEDS: ASPIRIN 81 MG TABLET, CHEWABLE NG SCH (21:54)
[2020-07-13 04:55] LABS: ABSOLUTE BASOPHILS # (AUTO) 0.1 10^3/uL (0.0-0.2); ABSOLUTE EOSINOPHILS # (AUTO) 0.2 10^3/uL (0.0-0.6); ABSOLUTE LYMPHOCYTES (AUTO) 1.3 10^3/uL (0.5-4.7); ABSOLUTE MONOCYTES (AUTO) 1.2 10^3/uL (0.1-1.4); ABSOLUTE NEUT (AUTO) 9.8 10^3/uL (1.7-8.2); BASOPHILS % (AUTO) 0.5 % (0-2); EOSINOPHILS % (AUTO) 1.7 % (0-6); HEMATOCRIT 21.1 % (37.9-51.0); LYMPHOCYTES % (AUTO) 10.3 % (13-45); MEAN CORPUSCULAR HEMOGLOBIN 33.1 pg (27.0-33.4); MEAN CORPUSCULAR VOLUME 97 fl (80-97); MONOCYTES % (AUTO) 9.3 % (3-13); RED BLOOD COUNT 2.16 10^6/uL (4.35-5.55); SEGMENTED NEUTROPHILS % (AUTO) 78.2 % (42-78); TOTAL CELLS COUNTED % (AUTO) 100 %; WHITE BLOOD COUNT 12.6 10^3/uL (4.0-10.5)
[2020-07-13 05:00] LABS: ANION GAP 11 (5-19); BLOOD UREA NITROGEN 93 mg/dL (7-20); CALCIUM 8.7 mg/dL (8.4-10.2); CARBON DIOXIDE 24 mmol/L (22-30); CHLORIDE 103 mmol/L (98-107); GLUCOSE 91 mg/dL (75-110); POTASSIUM 4.5 mmol/L (3.6-5.0)
[2020-07-13] MEDS ORDERED: EPOETIN ALFA-EPBX 2,000 UNIT, EPOETIN ALFA-EPBX 3,000 UNIT, EPOETIN ALFA-EPBX 20,000 UN... IV PRN ×4 (05:00)
[2020-07-13 06:01] LABS: PLATELET COUNT 83 10^3/uL (150-450)
[2020-07-13] MEDS: INSULIN LISPRO 100 UNIT/ML 3 ML VIAL SUBCUT SCH ×4 (07:37→21:24)
[2020-07-13] MEDS: MEGESTROL ACETATE 20 MG TABLET NG SCH ×2 (10:24→11:36)
[2020-07-13] MEDS: CALCIUM ACETATE 667 MG CAPSULE NG SCH ×2 (10:24→11:36)
[2020-07-13] MEDS: PRENATAL VITAMIN W DHA CAPSULE PO SCH (10:29)
[2020-07-13] MEDS: CHOLECALCIFEROL (D3) 1,000 UNIT (25 MCG) TABLET NG SCH (10:30)
[2020-07-13] MEDS: CEFTRIAXONE 1 GM/D5W RTU 1 GM/50 ML RTUPB IV SCH (10:30)
[2020-07-13] MEDS: LIDOCAINE 4% TOPICAL SOLN 50 ML TOP SCH ×3 (10:30→17:51)
--- NOTE | 2020-07-13 11:11 | RADIOLOGY REPORT (SQ) ---
EXAM DESCRIPTION: CHEST SINGLE VIEW IMAGES COMPLETED DATE/TIME: 07/13/2020 11:00 am REASON FOR STUDY: f/u ptx COMPARISON: 07/12/2020 NUMBER OF VIEWS: One view. TECHNIQUE: Single frontal radiographic image of the chest acquired. LIMITATIONS: None. FINDINGS: LUNGS AND PLEURA: Stable appearance. MEDIASTINUM AND HILAR STRUCTURES: Stable heart size and mediastinal structures. HEART AND VASCULAR STRUCTURES: Stable appearance. BONES: No acute findings. HARDWARE: None in the chest. Vascular stents in the left axilla are again noted. OTHER: No other significant finding. IMPRESSION: STABLE APPEARANCE OF THE CHEST. TECHNICAL DOCUMENTATION: JOB ID: [id number] 2010 [employer]- All Rights Reserved Reading location - IP/workstation name: [email or web address]
[2020-07-13] MEDS ORDERED: CALCIUM ACETATE 667 MG CAPSULE PO SCH (12:00)
--- NOTE | 2020-07-13 12:09 | PDOC PROGRESS REPORT ---
Subjective Progress Note for:: 07/13/20 Reason For Visit: Seen on dialysis today. He is undergoing dialysis without any issues. Vital signs are stable. He denies any history of abdominal pains, chest pains or shortness of breath. No history of any fever or chills. Labs and medications were reviewed. Labs shows hemoglobin 7.2 as compared to 9.8 on admission. He has a history of diarrhea as well as some hemorrhoidal bleeding. Urine analysis shows glucosuria/proteinuria from his diabetic nephropathy. Physical Exam Vital Signs: Temp Pulse Resp BP Pulse Ox 99.4 F 89 17 124/50 L 98 07/13/20 10:00 07/12/20 23:09 07/12/20 23:09 07/12/20 23:09 07/13/20 04:50 Intake & Output 07/12/20 07/13/20 07/14/20 06:59 06:59 06:59 Intake Total 670 1050 50 Output Total 25 40 1800 Balance 645 1010 -1750 Weight 86.3 kg 82.5 kg General appearance: PRESENT: no acute distress Respiratory exam: PRESENT: clear to auscultation prabha, decreased breath sounds Cardiovascular exam: PRESENT: +S1, +S2 GI/Abdominal exam: PRESENT: normal bowel sounds, soft. ABSENT: organomegaly, tenderness Extremities exam: ABSENT: pedal edema Neurological exam: PRESENT: alert, altered, awake, oriented to person, oriented to place Psychiatric exam: PRESENT: appropriate affect Results Laboratory Results: 07/13/20 03:44 07/13/20 03:44 07/13/20 07/13/20 03:44 03:44 WBC 12.6 H RBC 2.16 L Hgb 7.2 L Hct 21.1 L MCV 97 MCH 33.1 MCHC 34.0 RDW 15.0 H Plt Count 83 L Seg Neutrophils % 78.2 H Sodium 138.2 Potassium 4.5 Chloride 103 Carbon Dioxide 24 Anion Gap 11 BUN 93 H Creatinine 9.22 H Est GFR ( Amer) 7 L Glucose 91 Calcium 8.7 07/08/20 01:37 Blood Blood Culture - Final NO GROWTH IN 5 DAYS 07/08/20 01:10 Blood Blood Culture - Final NO GROWTH IN 5 DAYS 07/07/20 07/07/20 07/07/20 11:42 11:42 19:26 Creatine Kinase 263 H 187 H CK-MB (CK-2) 7.11 H Troponin I 0.160 07/07/20 07/08/20 07/08/20 19:26 01:37 01:37 Creatine Kinase 190 H CK-MB (CK-2) Troponin I 0.180 0.181 07/08/20 07/08/20 06:10 06:10 Creatine Kinase 178 H CK-MB (CK-2) Troponin I 0.173 Impressions: Head CT 07/07/20 00:00 IMPRESSION: NORMAL BRAIN CT WITHOUT CONTRAST. EVIDENCE OF ACUTE STROKE: NO. KUB X-Ray 07/08/20 00:00 IMPRESSION: NG tube tip in the stomach. Chest X-Ray 07/13/20 06:00 IMPRESSION: STABLE APPEARANCE OF THE CHEST. Assessment & Plan - Diagnosis (1) ESRD (end stage renal disease) Is this a current diagnosis for this admission?: Yes Plan: Patient currently undergoing gentle dialysis. Orders were reviewed with treating dialysis nurse. Plan to remove 500 cc - 1 L of fluid. Dialysis is being supervised and patient doing well. From a renal point of view he could have been discharged home to outpatient dialysis, but for the drop in hemoglobin that has happened over the weekend.This now needs to be monitored and possibly transfused and stabilized prior to his discharge now. Dialysis orders were reviewed with the treating dialysis nurse. . (2) Disequilibrium syndrome Is this a current diagnosis for this admission?: Yes Plan: Currently resolved and stable. Monitor. (3) Diabetes mellitus type 2 in nonobese Is this a current diagnosis for this admission?: Yes Plan: As per crepe sole scourer. (4) Hypertension Is this a current diagnosis for this admission?: Yes Plan: Stable. (5) Anemia in chronic kidney disease (CKD) Qualifiers: Chronic kidney disease stage: on chronic dialysis Qualified Code(s): N18.6 - End stage renal disease; D63.1 - Anemia in chronic kidney disease; Z99.2 - Dependence on renal dialysis Is this a current diagnosis for this admission?: Yes Plan: Initial admission hemoglobin was 9.8 and today 7.2 and this is concerning. I would keep him here for a day or tomorrow to see if it drops and he would obviously require transfusion. I would repeat his hemoglobin later today and if his hemoglobin is is at 7 or around , then I would order couple of pints of transfusion and not wait till tomorrow. Meanwhile I have adjusted erythropoietin. Monitor. (6) Diarrhea Qualifiers: Diarrhea type: functional diarrhea Qualified Code(s): K59.1 - Functional diarrhea Is this a current diagnosis for this admission?: Yes Plan: Currently looks like it is resolved. Monitor.
[2020-07-13] MEDS: ACETAMINOPHEN 325 MG TABLET PO PRN (14:01)
--- NOTE | 2020-07-13 14:23 | PDOC PROGRESS REPORT ---
Subjective Progress Note for:: 07/13/20 Reason For Visit: SEIZURES,NEW ONSET CHRONIC RENAL FAILURE, HD VOLUM Patient reports no further bleeding Physical Exam Vital Signs: Temp Pulse Resp BP Pulse Ox 99.4 F 89 17 124/50 L 98 07/13/20 10:00 07/12/20 23:09 07/12/20 23:09 07/12/20 23:09 07/13/20 04:50 Intake & Output 07/12/20 07/13/20 07/14/20 06:59 06:59 06:59 Intake Total 670 1050 50 Output Total 25 40 1800 Balance 645 1010 -1750 Weight 86.3 kg 82.5 kg General appearance: PRESENT: no acute distress Rectal exam: PRESENT: other - A rectal exam was not performed Results Laboratory Results: 07/13/20 03:44 07/13/20 03:44 07/13/20 07/13/20 03:44 03:44 WBC 12.6 H RBC 2.16 L Hgb 7.2 L Hct 21.1 L MCV 97 MCH 33.1 MCHC 34.0 RDW 15.0 H Plt Count 83 L Seg Neutrophils % 78.2 H Sodium 138.2 Potassium 4.5 Chloride 103 Carbon Dioxide 24 Anion Gap 11 BUN 93 H Creatinine 9.22 H Est GFR ( Amer) 7 L Glucose 91 Calcium 8.7 07/08/20 01:37 Blood Blood Culture - Final NO GROWTH IN 5 DAYS 07/08/20 01:10 Blood Blood Culture - Final NO GROWTH IN 5 DAYS 07/07/20 07/07/20 07/07/20 11:42 11:42 19:26 Creatine Kinase 263 H 187 H CK-MB (CK-2) 7.11 H Troponin I 0.160 07/07/20 07/08/20 07/08/20 19:26 01:37 01:37 Creatine Kinase 190 H CK-MB (CK-2) Troponin I 0.180 0.181 07/08/20 07/08/20 06:10 06:10 Creatine Kinase 178 H CK-MB (CK-2) Troponin I 0.173 Impressions: Head CT 07/07/20 00:00 IMPRESSION: NORMAL BRAIN CT WITHOUT CONTRAST. EVIDENCE OF ACUTE STROKE: NO. KUB X-Ray 07/08/20 00:00 IMPRESSION: NG tube tip in the stomach. Chest X-Ray 07/13/20 06:00 IMPRESSION: STABLE APPEARANCE OF THE CHEST. Assessment & Plan - Diagnosis (1) Rectal bleeding Plan: Impression: Patient is 2 days status post operative hemorrhoidectomy x2, Dr. Mead, with excellent early postoperative results, with no evidence of further rectal bleeding Plan: 1. We will sign off at this time; patient take stool softeners. 2. Patient follow-up with Dr. Mead [facility] in 2 to 3 weeks. 3. Please reconsult surgery if clinically indicated. - Time Time Spent: 30 to 50 Minutes Anticipated Discharge Disposition: Home, Self Care Anticipated Discharge Timeframe: within 24 hours
[2020-07-13] MEDS ORDERED: DOXAZOSIN MESYLATE 2 MG TABLET PO SCH (16:00)
[2020-07-13] MEDS: CALCIUM ACETATE 667 MG CAPSULE PO SCH (17:50)
--- NOTE | 2020-07-13 18:21 | PDOC PROGRESS REPORT ---
Subjective Subjective:: 07/10/2020 Discussed the patient and his hospital stay thus far with Dr. Galvan cone examiner who stated the patient was initially managed for dialysis needs, later had a seizure, and then the past few days has been having rectal bleeding. Enamel Pulverizer consulted general surgery is agreed to see the patient. I have pre scribed Anusol rectal steroid. Please change the attending to my name when the patient arrives on the floor. We will follow-up with the patient in the morning to continue his care. 07/11/2020 Patient seems to be doing overall quite well today. Hemoglobin lower today at 8.9. COVID testing is pending for placement at SNF. Chest x-ray is notably improved. Patient has no new complaints today. Per general surgery: "Impression is persistent rectal bleeding status post a hemorrhoidal banding abo ut a month ago He had a recent colonoscopy about a month ago which reported by his patient's son is removing one polyp otherwise it was a normal colonoscopy. Recommendations we will obtain records from Dr. colon office about the colonoscopy. Will make the patient n.p.o. after midnight tonight and plan on possible endoscopy and exam under anesthesia with possible re-banding and/or oversewing bleeding hemorrhoid." 07/12/2020 General surgery cleared patient for discharge, no further significant bleeding from rectum after hemorrhoidectomy. However, patient has developed fever up to 103 with tachypnea and elevated blood pressure. Patient has documented urinary retention though this was not addressed overnight. I ordered a straight cath with UA and reflex culture showed UTI with massive proteinuria and glucosuria. Nephrology has not seen the patient since Monday I would like their opinion on the massive amount of proteinuria and glucosuria seen on UA and if there is anything we need to do about this likely nephrotic syndrome. Chest x-ray PA/lateral did not show any significant infiltrates or pneumonia. 07/13/2025 WBC higher and hemoglobin lower. Patient states she is not losing any blood but he has not really looked for it. Urine culture is growing GPC seeing preliminary results. Follow-up final results. UA consistent with UTI. Monitor for urinary retention. Blood cultures negative. If hemoglobin remains stable, could possibly be discharged in the next 24 to 48 hours. Reason For Visit: SEIZURES,NEW ONSET CHRONIC RENAL FAILURE, HD VOLUM Physical Exam Vital Signs: Temp Pulse Resp BP Pulse Ox 99.4 F 89 17 124/50 L 98 09/21/20 10:00 07/12/20 23:09 07/12/20 23:09 07/12/20 23:09 07/13/20 04:50 Intake & Output 07/12/20 07/13/20 07/14/20 06:59 06:59 06:59 Intake Total 670 1050 50 Output Total 25 40 1800 Balance 645 1010 -1750 Weight 86.3 kg 82.5 kg Results Laboratory Results: 07/13/20 03:44 07/13/20 03:44 07/13/20 07/13/20 03:44 03:44 WBC 12.6 H RBC 2.16 L Hgb 7.2 L Hct 21.1 L MCV 97 MCH 33.1 MCHC 34.0 RDW 15.0 H Plt Count 83 L Seg Neutrophils % 78.2 H Sodium 138.2 Potassium 4.5 Chloride 103 Carbon Dioxide 24 Anion Gap 11 BUN 93 H Creatinine 9.22 H Est GFR ( Amer) 7 L Glucose 91 Calcium 8.7 07/08/20 01:37 Blood Blood Culture - Final NO GROWTH IN 5 DAYS 07/08/20 01:10 Blood Blood Culture - Final NO GROWTH IN 5 DAYS 07/07/20 07/07/20 07/07/20 11:42 11:42 19:26 Creatine Kinase 263 H 187 H CK-MB (CK-2) 7.11 H Troponin I 0.160 07/07/20 07/08/20 07/08/20 19:26 01:37 01:37 Creatine Kinase 190 H CK-MB (CK-2) Troponin I 0.180 0.181 07/08/20 07/08/20 06:10 06:10 Creatine Kinase 178 H CK-MB (CK-2) Troponin I 0.173 Impressions: Head CT 07/07/20 00:00 IMPRESSION: NORMAL BRAIN CT WITHOUT CONTRAST. EVIDENCE OF ACUTE STROKE: NO. KUB X-Ray 07/08/20 00:00 IMPRESSION: NG tube tip in the stomach. Chest X-Ray 07/13/20 06:00 IMPRESSION: STABLE APPEARANCE OF THE CHEST. Assessment and Plan - Diagnosis (1) UTI (urinary tract infection) Qualifiers: Urinary tract infection type: acute cystitis Hematuria presence: with hematuria Qualified Code(s): N30.01 - Acute cystitis with hematuria Is this a current diagnosis for this admission?: Yes Plan: UA infected, culture growing GPC C preliminary Ceftriaxone Urinary retention present, straight cath, recheck bladder scan and if he is still Retaining Place, Cuadra catheter (2) Anemia in chronic kidney disease (CKD) Qualifiers: Chronic kidney disease stage: on chronic dialysis Qualified Code(s): N18.6 - End stage renal disease; D63.1 - Anemia in chronic kidney disease; Z99.2 - Dependence on renal dialysis Is this a current diagnosis for this admission?: Yes (3) Rectal bleeding Is this a current diagnosis for this admission?: Yes Plan: Impression: Patient is 2 days status post operative hemorrhoidectomy x2, Dr. Mead, with excellent early postoperative results, with no evidence of further rectal bleeding Plan: 1. We will sign off at this time; patient take stool softeners. 2. Patient follow-up with Dr. Mead [facility] in 2 to 3 weeks. 3. Please reconsult surgery if clinically indicated. Resolved/resolving (4) Seizure Is this a current diagnosis for this admission?: Yes (5) Diabetes mellitus type 2 in nonobese Is this a current diagnosis for this admission?: Yes (6) ESRD (end stage renal disease) Is this a current diagnosis for this admission?: Yes (7) Hypertension Is this a current diagnosis for this admission?: Yes (8) Proteinuria Qualifiers: Proteinuria type: unspecified Qualified Code(s): R80.9 - Proteinuria, unspecified Is this a current diagnosis for this admission?: Yes (9) Disequilibrium syndrome Is this a current diagnosis for this admission?: Yes - Time Time Spent with patient: 25-34 minutes Medications reviewed and adjusted accordingly: Yes Anticipated Discharge Disposition: Jail Facility Anticipated Discharge Timeframe: within 48 hours - Inpatient Certification Based on my medical assessment, after consideration of the patient's comorbidities, presenting symptoms, or acuity I expect that the services needed warrant INPATIENT care.: Yes I certify that my determination is in accordance with my understanding of Medicare's requirements for reasonable and necessary INPATIENT services [42 CFR 412.3e].: Yes Medical Necessity: Significant Comorbidiites Make Outpatient Treatment Too Risky, Need Close Monitoring Due to Risk of Patient Decompensation, Need for IV Antibiotics, Risk of Complication if Not Cared For in Hospital, Risk of Diag nosis Which Will Require Inpatient Eval/Care/Monitoring
[2020-07-13] MEDS: ASPIRIN 81 MG TABLET, CHEWABLE PO SCH (21:28)
[2020-07-14 05:24] LABS: ABSOLUTE EOSINOPHILS # (AUTO) 0.2 10^3/uL (0.0-0.6); ABSOLUTE LYMPHOCYTES (AUTO) 1.2 10^3/uL (0.5-4.7); ABSOLUTE MONOCYTES (AUTO) 1.1 10^3/uL (0.1-1.4); ABSOLUTE NEUT (AUTO) 7.2 10^3/uL (1.7-8.2); BASOPHILS % (AUTO) 0.5 % (0-2); EOSINOPHILS % (AUTO) 1.7 % (0-6); HEMATOCRIT 21.9 % (37.9-51.0); LYMPHOCYTES % (AUTO) 12.2 % (13-45); MEAN CORPUSCULAR HEMOGLOBIN 33.7 pg (27.0-33.4); MEAN CORPUSCULAR HGB CONC 34.8 g/dL (32.0-36.0); MEAN CORPUSCULAR VOLUME 97 fl (80-97); MONOCYTES % (AUTO) 11.2 % (3-13); PLATELET COUNT 100 10^3/uL (150-450); RED BLOOD COUNT 2.26 10^6/uL (4.35-5.55); RED CELL DISTRIBUTION WIDTH 15.2 % (11.5-14.0); SEGMENTED NEUTROPHILS % (AUTO) 74.4 % (42-78); TOTAL CELLS COUNTED % (AUTO) 100 %; WHITE BLOOD COUNT 9.6 10^3/uL (4.0-10.5)
[2020-07-14 05:28] LABS: HEMOGLOBIN 7.6 g/dL (13.5-17.0)
[2020-07-14 05:35] LABS: ANION GAP 10 (5-19); BLOOD UREA NITROGEN 73 mg/dL (7-20); CALCIUM 8.6 mg/dL (8.4-10.2); CARBON DIOXIDE 28 mmol/L (22-30); CHLORIDE 99 mmol/L (98-107); GLUCOSE 99 mg/dL (75-110); POTASSIUM 4.4 mmol/L (3.6-5.0)
[2020-07-14] MEDS: INSULIN LISPRO 100 UNIT/ML 3 ML VIAL SUBCUT SCH ×4 (07:13→21:43)
[2020-07-14] MEDS: MEGESTROL ACETATE 20 MG TABLET PO SCH ×2 (08:12→12:07)
[2020-07-14] MEDS: CALCIUM ACETATE 667 MG CAPSULE PO SCH ×3 (08:13→17:53)
--- NOTE | 2020-07-14 09:09 | RADIOLOGY REPORT (SQ) ---
EXAM DESCRIPTION: CHEST SINGLE VIEW IMAGES COMPLETED DATE/TIME: 07/14/2020 8:39 am REASON FOR STUDY: f/u ptx COMPARISON: 07/13/2020 EXAM PARAMETERS: NUMBER OF VIEWS: One view. TECHNIQUE: Single frontal radiographic view of the chest acquired. RADIATION DOSE: NA LIMITATIONS: None. FINDINGS: LUNGS AND PLEURA: Stable pulmonary exam demonstrating diffusely increased interstitial mar kings. No new focal consolidation, pleural effusion, or pneumothorax. MEDIASTINUM AND HILAR STRUCTURES: No masses. Contour normal. HEART AND VASCULAR STRUCTURES: Cardiomegaly without central vascular congestion. BONES: No acute findings. HARDWARE: Left axillary stent and left axillary surgical clips. OTHER: No other significant finding. IMPRESSION: Stable radiographic appearance of the chest. No pneumothorax. TECHNICAL DOCUMENTATION: JOB ID: [id number] 2010 [employer]- All Rights Reserved Reading location - IP/workstation name: NIR
[2020-07-14] MEDS: TRAMADOL HCL 50 MG TABLET PO PRN ×2 (10:25→17:53)
[2020-07-14] MEDS: CHOLECALCIFEROL (D3) 1,000 UNIT (25 MCG) TABLET PO SCH (10:25)
[2020-07-14] MEDS: PRENATAL VITAMIN W DHA CAPSULE PO SCH (10:25)
[2020-07-14] MEDS: CEFTRIAXONE 1 GM/D5W RTU 1 GM/50 ML RTUPB IV SCH (10:26)
[2020-07-14] MEDS: LIDOCAINE 4% TOPICAL SOLN 50 ML TOP SCH ×3 (10:28→17:54)
[2020-07-14 11:48] LABS: HEMOGLOBIN 7.2 g/dL (13.5-17.0)
--- NOTE | 2020-07-14 14:14 | PDOC PROGRESS REPORT ---
Subjective Progress Note for:: 07/14/20 Subjective:: Patient is an 85-year-old male with a past medical history significant for end- stage renal disease on dialysis, hypertension, DM 2, anemia who was admitted to the [facility] 07/07/20 with new onset seizures noted while in dialysis; patient had missed multiple dialysis appointments. Patient then developed bright red blood per rectum; underwent hemorrhoidectomy by Dr. Mead on 07/11/2020. Surgery is signed off. Should follow-up with Dr. Mead in 2 to 3 weeks. Patient was seen on morning rounds. He is found resting in bed, comfortably, on supplemental oxygen by nasal cannula at 1 L/min; maintaining oxygen saturations of 100%. Patient reports that he is not home O2 dependent. Patient states that he is feeling well and is hopeful to discharge home soon. Reports good appetite; tolerate 100% of meals. He denies fever, chills, chest pain, palpitations, dyspnea, orthopnea, abdominal pain, nausea vomiting diarrhea. He has no questions or concerns at this time. No concerns per nursing. Reason For Visit: SEIZURES,NEW ONSET CHRONIC RENAL FAILURE, HD VOLUM Physical Exam Vital Signs: Temp Pulse Resp BP Pulse Ox 98.3 F 70 28 H 116/49 L 100 07/14/20 12:00 07/14/20 12:00 07/14/20 12:00 07/14/20 12:00 07/14/20 12:00 Intake & Output 07/13/20 07/14/20 07/15/20 06:59 06:59 06:59 Intake Total 1050 642 Output Total 40 1800 Balance 1010 -1158 Weight 82.5 kg 82.5 kg General appearance: PRESENT: no acute distress, cooperative, hard of hearing, well-developed, well-nourished Head exam: PRESENT: atraumatic, normocephalic Eye exam: PRESENT: conjunctiva pink, EOMI, PERRLA. ABSENT: scleral icterus Mouth exam: PRESENT: moist, tongue midline Teeth exam: PRESENT: poor dentation Respiratory exam: PRESENT: clear to auscultation prabha, symmetrical, unlabored. ABSENT: rales, rhonchi, wheezes Cardiovascular exam: PRESENT: RRR, +S1, +S2. ABSENT: diastolic murmur, rubs, systolic murmur Pulses: PRESENT: normal dorsalis pedis pul Vascular exam: PRESENT: normal capillary refill GI/Abdominal exam: PRESENT: normal bowel sounds, soft. ABSENT: distended, guarding, mass, organolmegaly, rebound, tenderness Rectal exam: PRESENT: deferred, other - reports small amount of blood per rectum w/ blood clot this am; decreased from yesterday Extremities exam: PRESENT: full ROM. ABSENT: calf tenderness, clubbing, pedal edema Musculoskeletal exam: PRESENT: ambulatory Neurological exam: PRESENT: alert, awake, oriented to person, oriented to place, oriented to time, oriented to situation, CN II-XII grossly intact. ABSENT: motor sensory deficit Psychiatric exam: PRESENT: appropriate affect, normal mood. ABSENT: homicidal ideation, suicidal ideation Skin exam: PRESENT: dry, intact, warm. ABSENT: cyanosis, rash Results Laboratory Results: 07/14/20 04:45 07/14/20 04:45 07/13/20 07/14/20 07/14/20 03:44 04:45 04:45 WBC 9.6 RBC 2.26 L Hgb 7.2 L 7.6 L Hct 21.9 L MCV 97 MCH 33.7 H MCHC 34.8 RDW 15.2 H Plt Count 100 L Seg Neutrophils % 74.4 Sodium 136.8 L Potassium 4.4 Chloride 99 Carbon Dioxide 28 Anion Gap 10 BUN 73 H Creatinine 7.11 H Est GFR ( Amer) 9 L Glucose 99 Calcium 8.6 07/07/20 07/07/20 07/07/20 11:42 11:42 19:26 Creatine Kinase 263 H 187 H CK-MB (CK-2) 7.11 H Troponin I 0.160 07/07/20 07/08/20 07/08/20 19:26 01:37 01:37 Creatine Kinase 190 H CK-MB (CK-2) Troponin I 0.180 0.181 07/08/20 07/08/20 06:10 06:10 Creatine Kinase 178 H CK-MB (CK-2) Troponin I 0.173 Impressions: Head CT 07/07/20 00:00 IMPRESSION: NORMAL BRAIN CT WITHOUT CONTRAST. EVIDENCE OF ACUTE STROKE: NO. KUB X-Ray 07/08/20 00:00 IMPRESSION: NG tube tip in the stomach. Chest X-Ray 07/14/20 06:00 IMPRESSION: Stable radiographic appearance of the chest. No pneumothorax. Assessment and Plan - Diagnosis (1) UTI (urinary tract infection) Qualifiers: Urinary tract infection type: acute cystitis Hematuria presence: with hematuria Qualified Code(s): N30.01 - Acute cystitis with hematuria Is this a current diagnosis for this admission?: Yes Plan: UA infected, culture growing GPC C preliminary Blood cultures have no growth at 48 hours Patient is empirically placed on Ceftriaxone (2) Seizure Is this a current diagnosis for this admission?: Yes Plan: No further seizures Likely secondary to multiple missed dialysis appointments. (3) Rectal bleeding Is this a current diagnosis for this admission?: Yes Plan: Status post hemorrhoidectomy x2 by Dr. Mead. Surgery is signed off. Outpatient follow-up in 2 to 3 weeks. (4) Anemia in chronic kidney disease (CKD) Qualifiers: Chronic kidney disease stage: on chronic dialysis Qualified Code(s): N18.6 - End stage renal disease; D63.1 - Anemia in chronic kidney disease; Z99.2 - Dependence on renal dialysis Is this a current diagnosis for this admission?: Yes Plan: Baseline Hgb 10-11 Decreased this admission r/t active hemorrhoid bleeding s/p hemorrhoidectomy Hemoglobin slightly improved today; 10.4-> 7.7-> 7.2-> 7.6 Bleeding is decreased. Erythropoietin per nephrology. Follow-up CBC (5) Disequilibrium syndrome Is this a current diagnosis for this admission?: Yes Plan: Physical therapy consulted; ambulated 120 feet contact-guard assist Recommend continued PT services. Discharge planning consulted for home health nursing, PT, OT, aide, social (6) Proteinuria Qualifiers: Proteinuria type: unspecified Qualified Code(s): R80.9 - Proteinuria, unspecified Is this a current diagnosis for this admission?: Yes Plan: Noted by nephrology; Primary management per Dr. Washington. Per Dr. Washington's note, patient remains approved for discharge (7) Diabetes mellitus type 2 in nonobese Is this a current diagnosis for this admission?: Yes Plan: Diet controlled at home. Accu-Cheks Sliding scale insulin (8) ESRD (end stage renal disease) Is this a current diagnosis for this admission?: Yes Plan: Continued on dialysis per nephrology orders (9) Hypertension Is this a current diagnosis for this admission?: Yes Plan: Currently w/ acceptable blood pressures Improved with dialysis sessions - Time Time Spent with patient: 25-34 minutes Medications reviewed and adjusted accordingly: Yes Anticipated Discharge Disposition: Home with Home Health Anticipated Discharge Timeframe: within 24 hours - pending UCx and Hgb results
[2020-07-14] MEDS: ASPIRIN 81 MG TABLET, CHEWABLE PO SCH (21:45)
[2020-07-15] MEDS ORDERED: EPOETIN ALFA-EPBX 2,000 UNIT, EPOETIN ALFA-EPBX 3,000 UNIT, EPOETIN ALFA-EPBX 20,000 UN... IV PRN ×4 (05:00)
[2020-07-15 06:58] LABS: ABSOLUTE BASOPHILS # (AUTO) 0.1 10^3/uL (0.0-0.2); ABSOLUTE EOSINOPHILS # (AUTO) 0.2 10^3/uL (0.0-0.6); ABSOLUTE MONOCYTES (AUTO) 1.1 10^3/uL (0.1-1.4); ABSOLUTE NEUT (AUTO) 7.6 10^3/uL (1.7-8.2); ABSOLUTE RETICS # 0.046 10^6/uL (0.028-0.122); BASOPHILS % (AUTO) 0.8 % (0-2); EOSINOPHILS % (AUTO) 1.9 % (0-6); LYMPHOCYTES % (AUTO) 10.1 % (13-45); MEAN CORPUSCULAR HEMOGLOBIN 33.2 pg (27.0-33.4); MEAN CORPUSCULAR HGB CONC 34.2 g/dL (32.0-36.0); MEAN CORPUSCULAR VOLUME 97 fl (80-97); PLATELET COUNT 123 10^3/uL (150-450); RED BLOOD COUNT 2.37 10^6/uL (4.35-5.55); RED CELL DISTRIBUTION WIDTH 15.1 % (11.5-14.0); RETICULOCYTE COUNT (AUTO) 1.95 % (0.66-2.85); SEGMENTED NEUTROPHILS % (AUTO) 76.2 % (42-78); TOTAL CELLS COUNTED % (AUTO) 100 %
[2020-07-15 07:01] LABS: HEMOGLOBIN 7.9 g/dL (13.5-17.0)
[2020-07-15 07:18] LABS: ANION GAP 11 (5-19); BLOOD UREA NITROGEN 94 mg/dL (7-20); CALCIUM 9.3 mg/dL (8.4-10.2); CARBON DIOXIDE 24 mmol/L (22-30); CHLORIDE 98 mmol/L (98-107); GLUCOSE 109 mg/dL (75-110); IRON(TIBC) 28.8 ug/dL (49-181)
[2020-07-15] MEDS: MEGESTROL ACETATE 20 MG TABLET PO SCH ×2 (08:27→12:11)
[2020-07-15] MEDS: INSULIN LISPRO 100 UNIT/ML 3 ML VIAL SUBCUT SCH ×2 (08:27→11:24)
[2020-07-15] MEDS: CALCIUM ACETATE 667 MG CAPSULE PO SCH ×2 (08:27→11:29)
[2020-07-15 09:15] LABS: FOLATE > 20.00 ng/mL (>2.76)
[2020-07-15] MEDS ORDERED: HYDROCORTISONE ACETATE 25 MG SUPP.RECT PR PRN (10:00)
[2020-07-15] MEDS: LIDOCAINE 4% TOPICAL SOLN 50 ML TOP SCH ×2 (11:29→13:46)
[2020-07-15] MEDS: CHOLECALCIFEROL (D3) 1,000 UNIT (25 MCG) TABLET PO SCH (11:29)
[2020-07-15] MEDS: PRENATAL VITAMIN W DHA CAPSULE PO SCH (11:29)
[2020-07-15] MEDS: CEFTRIAXONE 1 GM/D5W RTU 1 GM/50 ML RTUPB IV SCH (11:38)
--- NOTE | 2020-07-15 12:27 | PDOC PROGRESS REPORT ---
Subjective Progress Note for:: 07/15/20 Reason For Visit: Patient seen on dialysis today. Doing well. Vital signs are stable. Denies any chest pain shortness of breath abdominal pains. Labs and medications reviewed. Dialysis orders were reviewed with the treating dialysis nurse. Physical Exam Vital Signs: Temp Pulse Resp BP Pulse Ox 99.1 F 86 17 120/53 L 95 07/14/20 23:28 07/14/20 23:28 07/14/20 23:28 07/14/20 23:28 07/15/20 00:15 Intake & Output 07/14/20 07/15/20 07/16/20 06:59 06:59 06:59 Intake Total 642 1622 Output Total 1800 50 Balance -1158 1572 Weight 82.5 kg 82.5 kg General appearance: PRESENT: no acute distress Respiratory exam: PRESENT: clear to auscultation prabha, decreased breath sounds. ABSENT: crackles Cardiovascular exam: PRESENT: +S1, +S2 GI/Abdominal exam: PRESENT: normal bowel sounds, soft. ABSENT: organomegaly, tenderness Extremities exam: ABSENT: pedal edema Neurological exam: PRESENT: alert, awake, oriented to person, oriented to place Psychiatric exam: PRESENT: appropriate affect Results Laboratory Results: 07/15/20 06:44 07/15/20 06:44 07/15/20 07/15/20 06:44 06:44 WBC 10.0 RBC 2.37 L Hgb 7.9 L Hct 23.0 L MCV 97 MCH 33.2 MCHC 34.2 RDW 15.1 H Plt Count 123 L Seg Neutrophils % 76.2 Retic Count (auto) 1.95 Sodium 133.0 L Potassium 5.0 Chloride 98 Carbon Dioxide 24 Anion Gap 11 BUN 94 H Creatinine 8.42 H Est GFR ( Amer) 7 L Glucose 109 Calcium 9.3 Iron 28.8 L TIBC 218 L % Saturation 13 Ferritin 971.00 H Vitamin B12 > 1000.0 H Folate > 20.00 07/12/20 09:35 Catheterized Urine Urine Culture - Final Enterococcus Faecalis(Group D) Viridans Streptococcus 07/07/20 07/07/20 07/07/20 11:42 11:42 19:26 Creatine Kinase 263 H 187 H CK-MB (CK-2) 7.11 H Troponin I 0.160 07/07/20 07/08/20 07/08/20 19:26 01:37 01:37 Creatine Kinase 190 H CK-MB (CK-2) Troponin I 0.180 0.181 07/08/20 07/08/20 06:10 06:10 Creatine Kinase 178 H CK-MB (CK-2) Troponin I 0.173 Impressions: Head CT 07/07/20 00:00 IMPRESSION: NORMAL BRAIN CT WITHOUT CONTRAST. EVIDENCE OF ACUTE STROKE: NO. KUB X-Ray 07/08/20 00:00 IMPRESSION: NG tube tip in the stomach. Chest X-Ray 07/14/20 06:00 IMPRESSION: Stable radiographic appearance of the chest. No pneumothorax. Assessment & Plan - Diagnosis (1) ESRD (end stage renal disease) Is this a current diagnosis for this admission?: Yes Plan: Patient currently undergoing gentle dialysis. Orders were reviewed with treating dialysis nurse. Plan to remove 500 cc - 1 L of fluid. Dialysis is being supervised and patient doing well. From a renal point of view he could have been discharged home to outpatient dialysis. Hemoglobin continues to improve which is good. Adjust erythropoietin. Dialysis orders were reviewed with the treating dialysis nurse. . (2) Disequilibrium syndrome Is this a current diagnosis for this admission?: Yes Plan: Currently resolved and stable. Monitor. (3) Diabetes mellitus type 2 in nonobese Is this a current diagnosis for this admission?: Yes Plan: As per helix coil winder. (4) Hypertension Is this a current diagnosis for this admission?: Yes Plan: Stable. (5) Anemia in chronic kidney disease (CKD) Qualifiers: Chronic kidney disease stage: on chronic dialysis Qualified Code(s): N18.6 - End stage renal disease; D63.1 - Anemia in chronic kidney disease; Z99.2 - Dependence on renal dialysis Is this a current diagnosis for this admission?: Yes Plan: Initial admission hemoglobin was 9.8 and today 7.9 from yesterday of 7.2. I have adjusted erythropoietin. Monitor. (6) Diarrhea Qualifiers: Diarrhea type: functional diarrhea Qualified Code(s): K59.1 - Functional diarrhea Is this a current diagnosis for this admission?: Yes Plan: Currently looks like it is resolved. Monitor.
[2020-07-15 12:56] VITALS: BP 143/43
--- NOTE | 2020-07-15 16:32 | PDOC DISCHARGE SUMMARY ---
Impression - Admit/DC Date/PCP Admission Date/Primary Care Provider: 07/07/20 19:28 Discharge Date: 07/15/20 - Discharge Diagnosis (1) UTI (urinary tract infection) Is this a current diagnosis for this admission?: Yes (2) Seizure Is this a current diagnosis for this admission?: Yes (3) Rectal bleeding Is this a current diagnosis for this admission?: Yes (4) Anemia in chronic kidney disease (CKD) Is this a current diagnosis for this admission?: Yes (5) Disequilibrium syndrome Is this a current diagnosis for this admission?: Yes (6) Proteinuria Is this a current diagnosis for this admission?: Yes (7) Diabetes mellitus type 2 in nonobese Is this a current diagnosis for this admission?: Yes (8) ESRD (end stage renal disease) Is this a current diagnosis for this admission?: Yes (9) Hypertension Is this a current diagnosis for this admission?: Yes (10) Internal hemorrhoids Is this a current diagnosis for this admission?: Yes - Additional Information Resuscitation Status: Full Code Discharge Diet: Diabetic, Other (Comments) Discharge Activity: Activity As Tolerated, Balance Activity w/Rest, Slowly Increase Activity Referrals: SUSI GONZALEZ MD [ACTIVE STAFF] - 07/21/20 3:15 pm LIZBETH MEAD MD [ACTIVE STAFF] - 08/06/20 8:45 am (Follow up within 2-3 weeks) Prescriptions: Hydrocortisone Acetate [Anusol Hc 25 mg Supp.rect] 25 mg AK BIDP PRN #10 supp.rect PRN Reason: Home Medications: Doxazosin Mesylate 2 mg PO QHS 07/01/14 Aspirin [Aspirin 81 mg Chewable Tablet] 1 tab PO QHS 05/26/15 B Complex W-C No.20/Folic Acid [[place] Caps Softgel] 1 tab PO DAILY 08/08/16 Cholecalciferol (Vitamin D3) [Vitamin D3] 2,000 unit PO DAILY 08/08/16 Calcium Acetate [Phoslo 667 mg Capsule] 2,001 mg PO AC 06/15/18 Calcium Acetate [Phoslo 667 mg Capsule] 1,334 mg PO .SNACKS 07/07/20 Megestrol Acetate [Megace 20 mg Tablet] 40 mg PO DAILY@,12 07/07/20 Acetaminophen [Tylenol 325 mg Tablet] 650 mg PO Q4HP PRN tablet 07/15/20 Hydrocortisone Acetate [Anusol Hc 25 mg Supp.rect] 25 mg AK BIDP PRN #10 supp.rect 07/15/20 History of Present Illiness History of Present Illness: Per H&P by Mechanical Press Operator: 85 year old male who presented to ED for increased shortness of breath after missing several hemodialysis treatments. The patient was sent to the hemodialysis center at [place] for emergent HD and while being dialyzed the patient began to have complications described as seizure like activity. The initial head CT after this event was negative. The pateint initial potassium was 6.9 however his repeat results are 4.3. The ER provided consulted critical care for admission and management of this patient. The patient arrived to the ICU very agitated and uncooperative. A complete review of system is unable to be obtained at this time. The patient is tolerating BIPAP with oxygen saturation of 99%. Hospital Course Hospital Course: (1) UTI (urinary tract infection) UA infected, culture growing enterococcus faecalis Blood cultures have no growth at 72 hours Patient was empirically placed on Ceftriaxone; renally dosed Levaquin at discharge. (2) Seizure No further seizures Likely secondary to multiple missed dialysis appointments. Medication, dietary, and dialysis compliance is strongly encouraged. Home health nursing for disease and medication education and management. (3) Rectal bleeding Status post hemorrhoidectomy x2 by Dr. Mead. Surgery is signed off; approved for discharge. Anusol suppository b.i.d prn Outpatient follow-up with Dr. Mead in 2 to 3 weeks. (4) Anemia in chronic kidney disease (CKD) Baseline Hgb 10-11 Decreased this admission r/t active hemorrhoid bleeding s/p hemorrhoidectomy Hemoglobin slightly improved today; 10.4-> 7.7-> 7.2-> 7.6-> 7.9 Bleeding is decreased. Erythropoietin per nephrology. Outpatient monitoring per PCP and Nephrology. (5) Disequilibrium syndrome Physical therapy consulted; ambulated 120 feet contact-guard assist Recommend continued PT services. Discharge planning consulted for home health nursing, PT, OT, aide, and social work manager (6) Proteinuria Noted by nephrology Per Dr. Washington's note, patient remains approved for discharge (7) Diabetes mellitus type 2 in nonobese Diet controlled at home. Outpatient monitoring/management per PCP (8) ESRD (end stage renal disease) Continued on dialysis per nephrology orders Resume outpatient [facility] schedule. (9) Hypertension Currently w/ acceptable blood pressures Improved with dialysis sessions Physical Exam Vital Signs: Temp Pulse Resp BP Pulse Ox 99.1 F 86 17 143/43 H 95 07/15/20 12:54 07/15/20 12:54 07/15/20 12:54 07/15/20 12:54 07/15/20 12:54 Intake & Output 07/14/20 07/15/20 07/16/20 06:59 06:59 06:59 Intake Total 642 1622 Output Total 1800 50 1800 Balance -1158 1572 -1800 Weight 82.5 kg 82.5 kg General appearance: PRESENT: no acute distress, cooperative, hard of hearing, well-developed, well-nourished - overweight Head exam: PRESENT: atraumatic, normocephalic Eye exam: PRESENT: conjunctiva pink, EOMI, PERRLA. ABSENT: scleral icterus Mouth exam: PRESENT: moist, tongue midline Teeth exam: PRESENT: poor dentation Respiratory exam: PRESENT: clear to auscultation prabha, symmetrical, unlabored. ABSENT: rales, rhonchi, wheezes Cardiovascular exam: PRESENT: RRR, +S1, +S2. ABSENT: diastolic murmur, rubs, systolic murmur Pulses: PRESENT: normal dorsalis pedis pul Vascular exam: PRESENT: normal capillary refill GI/Abdominal exam: PRESENT: normal bowel sounds, soft. ABSENT: distended, guarding, mass, organolmegaly, rebound, tenderness Rectal exam: PRESENT: deferred, other - reports small amount of blood per rectum w/ blood clot this am; decreased Extremities exam: PRESENT: full ROM. ABSENT: calf tenderness, clubbing, pedal edema Musculoskeletal exam: PRESENT: ambulatory Neurological exam: PRESENT: alert, awake, oriented to person, oriented to place, oriented to time, oriented to situation, CN II-XII grossly intact. ABSENT: motor sensory deficit Psychiatric exam: PRESENT: flat affect, normal mood. ABSENT: homicidal ideation, suicidal ideation Skin exam: PRESENT: dry, intact, warm. ABSENT: cyanosis, rash Results Laboratory Results: WBC 10.0 10^3/uL (4.0-10.5) 07/15/20 06:44 RBC 2.37 10^6/uL (4.35-5.55) L 07/15/20 06:44 Hgb 7.9 g/dL (13.5-17.0) L 07/15/20 06:44 Hct 23.0 % (37.9-51.0) L 07/15/20 06:44 MCV 97 fl (80-97) 07/15/20 06:44 MCH 33.2 pg (27.0-33.4) 07/15/20 06:44 MCHC 34.2 g/dL (32.0-36.0) 07/15/20 06:44 RDW 15.1 % (11.5-14.0) H 07/15/20 06:44 Plt Count 123 10^3/uL (150-450) L 07/15/20 06:44 Lymph % (Auto) 10.1 % (13-45) L 07/15/20 06:44 [place] % (Auto) 11.0 % (3-13) 07/15/20 06:44 Eos % (Auto) 1.9 % (0-6) 07/15/20 06:44 Baso % (Auto) 0.8 % (0-2) 07/15/20 06:44 Reticulocyte # 0.046 10^6/uL (0.028-0.122) 07/15/20 06:44 Absolute Neuts (auto) 7.6 10^3/uL (1.7-8.2) 07/15/20 06:44 Absolute Lymphs (auto) 1.0 10^3/uL (0.5-4.7) 07/15/20 06:44 Absolute Monos (auto) 1.1 10^3/uL (0.1-1.4) 07/15/20 06:44 Absolute Eos (auto) 0.2 10^3/uL (0.0-0.6) 07/15/20 06:44 Absolute Basos (auto) 0.1 10^3/uL (0.0-0.2) 07/15/20 06:44 Total Counted 100 07/12/20 09:45 Seg Neutrophils % 76.2 % (42-78) 07/15/20 06:44 Seg Neuts % (Manual) 83 % (42-78) H 07/12/20 09:45 Band Neutrophils % 7 % (3-5) H 07/12/20 09:45 Lymphocytes % (Manual) 6 % (13-45) L 07/12/20 09:45 Monocytes % (Manual) 4 % (3-13) 07/12/20 09:45 Eosinophils % (Manual) 0 % (0-6) 07/12/20 09:45 Basophils % (Manual) 0 % (0-2) 07/12/20 09:45 Abs Neuts (Manual) 16.0 10^3/uL (1.7-8.2) H 07/12/20 09:45 Abs Lymphs (Manual) 1.1 10^3/uL (0.5-4.7) 07/12/20 09:45 Abs Monocytes (Manual) 0.7 10^3/uL (0.1-1.4) 07/12/20 09:45 Absolute Eos (Manual) 0.0 10^3/uL (0.0-0.6) 07/12/20 09:45 Abs Basophils (Manual) 0.0 10^3/uL (0.0-0.2) 07/12/20 09:45 Toxic Granulation SLIGHT 07/12/20 09:45 Platelet Estimate Cancelled 07/07/20 18:00 Platelet Comment DECREASED 07/12/20 09:45 Anisocytosis SLIGHT 07/12/20 09:45 Ovalocytes 1+ 07/12/20 09:45 Retic Count (auto) 1.95 % (0.66-2.85) 07/15/20 06:44 PT 14.6 SEC (11.4-15.4) 07/10/20 03:51 INR 1.12 07/10/20 03:51 Carbonic Acid 1.22 mmol/L (1.05-1.35) 07/08/20 05:20 HCO3/H2CO3 Ratio 19:1 07/08/20 05:20 ABG pH 7.39 (7.35-7.45) 07/08/20 05:20 ABG pCO2 40.4 mmHg (35-45) 07/08/20 05:20 ABG pO2 58.8 mmHg (80-100) L 07/08/20 05:20 ABG HCO3 23.8 mmol/L (20-24) 07/08/20 05:20 ABG Total CO2 25.0 mmol/L (23-27) 07/08/20 05:20 ABG O2 Saturation 90.3 % (94-98) L 07/08/20 05:20 ABG Base Excess -1.1 mmol/L 07/08/20 05:20 FiO2 ROOM AIR 07/08/20 05:20 Sodium 133.0 mmol/L (137-145) L 07/15/20 06:44 Potassium 5.0 mmol/L (3.6-5.0) 07/15/20 06:44 Chloride 98 mmol/L (98-107) 07/15/20 06:44 Carbon Dioxide 24 mmol/L (22-30) 07/15/20 06:44 Anion Gap 11 (5-19) 07/15/20 06:44 BUN 94 mg/dL (7-20) H 07/15/20 06:44 Creatinine 8.42 mg/dL (0.52-1.25) H 07/15/20 06:44 Est GFR ( Amer) 7 (>60) L 07/15/20 06:44 Est GFR (MDRD) Non-Af 6 (>60) L 07/15/20 06:44 Glucose 109 mg/dL (75-110) 07/15/20 06:44 POC Glucose 143 mg/dL (70-110) H 07/15/20 11:01 Lactic Acid 0.7 mmol/L (0.7-2.1) 07/07/20 18:00 Calcium 9.3 mg/dL (8.4-10.2) 07/15/20 06:44 Phosphorus 6.6 mg/dL (2.5-4.5) H 07/10/20 03:51 Magnesium 2.4 mg/dL (1.6-2.3) H 07/10/20 03:51 Iron 28.8 ug/dL (49-181) L 07/15/20 06:44 TIBC 218 ug/dL (250-450) L 07/15/20 06:44 % Saturation 13 % 07/15/20 06:44 Ferritin 971.00 ng/mL (17.9-464.0) H 07/15/20 06:44 Total Bilirubin 1.3 mg/dL (0.2-1.3) 07/09/20 03:59 Direct Bilirubin 0.9 mg/dL (0.0-0.4) H 07/09/20 03:59 Neonat Total Bilirubin Not Reportable 07/09/20 03:59 Neonat Direct Bilirubin Not Reportable 07/09/20 03:59 Neonat Indirect Bili Not Reportable 07/09/20 03:59 AST 23 U/L (17-59) 07/09/20 03:59 ALT 25 U/L (<50) 07/09/20 03:59 Alkaline Phosphatase 89 U/L (38-126) 07/09/20 03:59 Ammonia 14.5 umol/L (9-33) 07/10/20 03:51 Creatine Kinase 178 U/L (55-170) H 07/08/20 06:10 CK-MB (CK-2) 7.11 ng/mL (<4.55) H 07/07/20 11:42 Troponin I 0.173 ng/mL 07/08/20 06:10 Total Protein 6.3 g/dL (6.3-8.2) 07/09/20 03:59 Albumin 3.4 g/dL (3.5-5.0) L 07/09/20 03:59 Vitamin B12 > 1000.0 pg/mL (239-931) H 07/15/20 06:44 Folate > 20.00 ng/mL (>2.76) 07/15/20 06:44 TSH 3.77 uIU/mL (0.47-4.68) 07/08/20 06:10 Free T4 1.15 ng/dL (0.78-2.19) 07/08/20 06:10 Urine Color YELLOW 07/12/20 09:35 Urine Appearance SLIGHTLY-CLOUDY 07/12/20 09:35 Urine pH 7.0 (5.0-9.0) 07/12/20 09:35 Ur Specific [place] 1.009 07/12/20 09:35 Urine Protein >=500 mg/dL (NEGATIVE) H 07/12/20 09:35 Urine Glucose (UA) >=500 mg/dL (NEGATIVE) H 07/12/20 09:35 Urine Ketones NEGATIVE mg/dL (NEGATIVE) 07/12/20 09:35 Urine Blood SMALL (NEGATIVE) H 07/12/20 09:35 Urine Nitrite (Reflex) NEGATIVE (NEGATIVE) 07/12/20 09:35 Urine Bilirubin NEGATIVE (NEGATIVE) 07/12/20 09:35 Urine Urobilinogen NEGATIVE mg/dL (<2.0) 07/12/20 09:35 Leukocyte Esterase Rfl MODERATE (NEGATIVE) H 07/12/20 09:35 Urine RBC (Auto) 2 /HPF 07/12/20 09:35 Urine Bacteria (Auto) TRACE /HPF 07/12/20 09:35 Urine WBC (Reflex) 11 /HPF 07/12/20 09:35 Amorphous Sediment Auto TRACE /HPF 07/12/20 09:35 Urine Ascorbic Acid NEGATIVE (NEGATIVE) 07/12/20 09:35 Stl C. Difficile GDH Ag NEGATIVE (NEGATIVE) 07/09/20 14:37 Stl C.difficile Tox A&B NEGATIVE (NEGATIVE) 07/09/20 14:37 SARS-CoV-2 (PCR) NEGATIVE (NEGATIVE) 07/11/20 08:13 Slides for Path Review Cancelled 07/07/20 18:00 07/07/20 07/07/20 07/08/20 11:42 19:26 01:37 CK-MB (CK-2) 7.11 H Troponin I 0.160 0.180 0.181 07/08/20 06:10 CK-MB (CK-2) Troponin I 0.173 Impressions: Chest X-Ray 07/07/20 00:00 IMPRESSION: Cardiomegaly with pulmonary edema. Chest X-Ray 07/07/20 00:00 IMPRESSION: Central venous catheter with the tip in the cavoatrial junction. No pneumothorax. Underlying fibrotic change copyright 2011 [employer]- All Rights Reserved Head CT 07/07/20 00:00 IMPRESSION: NORMAL BRAIN CT WITHOUT CONTRAST. EVIDENCE OF ACUTE STROKE: NO. Chest X-Ray 07/07/20 11:35 IMPRESSION: No acute cardiopulmonary disease. Chronic pleural and parenchymal scarring probably representing underlying pulmonary fibrosis, unchanged in appearance from prior. KUB X-Ray 07/08/20 00:00 IMPRESSION: NG tube tip in the stomach. Chest X-Ray 07/08/20 06:00 IMPRESSION: STABLE APPEARANCE OF THE CHEST. Chest X-Ray 07/09/20 06:00 IMPRESSION: 1. The left IJ central venous catheter is no longer in place. 2. The tip of the enteric tube projects within the gastric lumen. 3. Cardiomegaly and unchanged diffuse interstitial opacities. Chest X-Ray 07/10/20 06:00 IMPRESSION: The enteric tube has been removed. Otherwise unchanged radiographic appearance of the chest. Chest X-Ray 07/11/20 06:00 IMPRESSION: No significant interval change. Chest X-Ray 07/12/20 00:00 IMPRESSION: No significant interval change. No focal consolidation. Underlying pulmonary fibrosis is stable. Chest X-Ray 07/12/20 06:00 IMPRESSION: No significant interval change. Underlying moderate to severe pulmonary fibrosis is stable. Chest X-Ray 07/13/20 06:00 IMPRESSION: STABLE APPEARANCE OF THE CHEST. Chest X-Ray 07/14/20 06:00 IMPRESSION: Stable radiographic appearance of the chest. No pneumothorax. Plan Plan of Treatment: Patient is discharged home, in stable condition, into the care of family with home health services. He is instructed to follow-up with primary care provider within 1 week, continue, and to follow-up with Dr. Mead in 2 weeks. He is advised to take medications as prescribed. Eat a heart healthy, dialysis, diet. Avoid constipation with OTC stool softeners. Return to emergency department, as needed, for concerning symptoms. Time Spent: Greater than 30 Minutes Stroke Is this a Stroke Patient?: No Acute Heart Failure Is this a Heart Failure Patient?: No
== END 2020-07-15 15:00 | disposition home health service (06) | DRG 987 ==
LOC: ER 11:31 → EH 19:28 → ICU 21:35 → 4W 07-10 13:08
PROVIDERS: ADMIT Anesthesiology; ATTEND Registered Nurse
PROC: 5A1D70Z Performance of Urinary Filtration, Intermittent, Less than 6 Hours Per Day (ICD-10-PCS; principal; 2020-07-07)
PROC: 02HV33Z Insertion of Infusion Device into Superior Vena Cava, Percutaneous Approach (ICD-10-PCS; 2020-07-07)
PROC: 5A09357 Assistance with Respiratory Ventilation, Less than 24 Consecutive Hours, Continuous Positive Airway Pressure (ICD-10-PCS; 2020-07-10)
PROC: 06BY3ZC Excision of Hemorrhoidal Plexus, Percutaneous Approach (ICD-10-PCS; 2020-07-11)
DX: R56.9 Unspecified convulsions (principal); N18.6 End stage renal disease; J81.0 Acute pulmonary edema; N30.01 Acute cystitis with hematuria; I12.0 Hypertensive chronic kidney disease with stage 5 chronic kidney disease or end stage renal disease; E87.2 Acidosis; K62.5 Hemorrhage of anus and rectum; Z91.15 Patient's noncompliance with renal dialysis; E13.649 Other specified diabetes mellitus with hypoglycemia without coma; D63.1 Anemia in chronic kidney disease; I95.9 Hypotension, unspecified; E11.22 Type 2 diabetes mellitus with diabetic chronic kidney disease; E11.21 Type 2 diabetes mellitus with diabetic nephropathy; Z99.2 Dependence on renal dialysis; K57.90 Diverticulosis of intestine, part unspecified, without perforation or abscess without bleeding; M17.0 Bilateral primary osteoarthritis of knee; M47.9 Spondylosis, unspecified; F17.200 Nicotine dependence, unspecified, uncomplicated; E87.5 Hyperkalemia; K64.8 Other hemorrhoids; K64.4 Residual hemorrhoidal skin tags; K59.1 Functional diarrhea; R33.9 Retention of urine, unspecified; R80.9 Proteinuria, unspecified; B95.2 Enterococcus as the cause of diseases classified elsewhere; E66.3 Overweight; H91.90 Unspecified hearing loss, unspecified ear; R42 Dizziness and giddiness; Z79.82 Long term (current) use of aspirin; Z79.899 Other long term (current) drug therapy; Z86.010 Personal history of colon polyps; Z85.46 Personal history of malignant neoplasm of prostate; Z83.3 Family history of diabetes mellitus; Z82.49 Family history of ischemic heart disease and other diseases of the circulatory system; Z11.59 Encounter for screening for other viral diseases; Z86.73 Personal history of transient ischemic attack (TIA), and cerebral infarction without residual deficits
CPT/HCPCS: 00902; 36415; 70450; 71045; 71046; 74018; 80048; 80053; 81001; 82140; 82550; 82553; 82607; 82728; 82746; 82803; 82962; 83540; 83550; 83605; 83735; 84100; 84439; 84443; 84484; 85025; 85045; 85610; 87040; 87070; 87086; 87088; 87186; 87324; 87449; 87635; 88304; 93005; 93010; 94640; 94660; 96374; 96375; 99291; C9113; C9290; C9803; J0696; J1200; J1642; J1644; J1720; J1815; J1940; J2060; J2250; J2405; J2704; J3010; J3490; P9047; Q5105

== ENCOUNTER → 2020-09-16 | Outpatient (CLI) | payer MEDICARE ==
--- NOTE | 2020-09-16 12:36 | RADIOLOGY REPORT (SQ) ---
EXAM DESCRIPTION: CT CHEST WITHOUT IMAGES COMPLETED DATE/TIME: 09/16/2020 9:10 am REASON FOR STUDY: (J84.10)PULMONARY FIBROSIS, UNSPECIFIED J84.10 PULMONARY FIBROSIS, UNSPECIFIED COMPARISON: AP view of the chest from 07/14/2020. TECHNIQUE: CT scan performed of the chest without intravenous contrast. Images reviewed with lung, soft tissue and bone windows. Reconstructed coronal and sagittal MPR images reviewed. All images st ored on PACS. All CT scanners at this facility use dose modulation, iterative reconstruction, and/or weight based d osing when appropriate to reduce radiation dose to as low as reasonably achievable (ALARA). [facility]: Dose Right [facility]: CareDose [facility]: Dose Right [facility]: Teradose 4D [facility]: [employer] RADIATION DOSE: CT Rad equipment meets quality standard of care and radiation dose reduction techniq ues were employed. CTDIvol: 14.6 mGy. DLP: 600 mGy-cm. LIMITATIONS: No technical limitations. FINDINGS: LUNGS AND PLEURA: The trachea and main bronchi are patent. There is evidence of periphera l reticulation and subpleural cyst formation in an upper lobe predominant distribution associated wit h mild bronchiectasis. There is no lobar consolidation, ground-glass opacification or pleural effusi on. HILAR AND MEDIASTINAL STRUCTURES: Evaluation of the suzanne for adenopathy is limited in the absence of intravenous contrast. There are nonenlarged and borderline enlarged right upper peritracheal, lower peritracheal and AP window lymph nodes that measure up to 9 mm in short axis diameter. HEART AND VASCULAR STRUCTURES: Cardiomegaly and atherosclerotic calcification of the thoracic aorta a nd coronary arteries. The pulmonary artery is dilated and it measures 3 mm in transverse diameter. There is no aneurysm or intramural hematoma of the thoracic aorta. UPPER ABDOMEN: The wall of the gallbladder is thickened. THYROID AND OTHER SOFT TISSUES: Stents along the outflow tract of a left upper extremity dialysis acc ess. The subcutaneous superior to the left breast (image 20 of series 3) could represent an epiderma l inclusion cyst. There is no supraclavicular axillary adenopathy. BONES: Findings of renal osteodystrophy. HARDWARE: None in the chest. OTHER: No other findings. IMPRESSION: 1. Peripheral reticulation and subpleural cyst formation in an upper lobe predominant di stribution associated with mild bronchiectasis. The findings are suggestive of an underlying fibroti c interstitial lung disease. 2. Cardiomegaly. 3. Dilatation of the pulmonary artery - correlate for pulmonary hypertension. 4. Thickening of the gallbladder wall - correlate with patient's symptomatology to determine the nee d for further evaluation with an ultrasound. TECHNICAL DOCUMENTATION: JOB ID: [id number] Quality ID # [id number]: Final reports with documentation of one or more dose reduction techniques (e.g., Au tomated exposure control, adjustment of the mA and/or kV according to patient size, use of iterative reconstruction technique) 2010 [employer]- All Rights Reserved Reading location - IP/workstation name: [email or web address]
== END ==
LOC: RAD 08:41
PROVIDERS: ATTEND Internal Medicine Pulmonary Disease
DX: J84.10 Pulmonary fibrosis, unspecified (principal)
CPT/HCPCS: 36415; 71250; 83516; 86225; 86235; 86256

== ENCOUNTER 2020-10-23 14:20 | Emergency (ER) | payer MEDICARE ==
--- NOTE | 2020-10-23 15:30 | ER Document Report ---
ED Medical Screen (RME) - General Stated Complaint: BLOOD IN URINATION Time Seen by Provider: 10/23/20 15:23 Primary Care Provider: SUSI GONZALEZ MD [Primary Care Provider] - Follow up as needed Notes: Patient is an 85-year-old male who presents to the emergency department with blood in his urine. Reports that he has had this for the past couple of weeks. States that he is now hurting due to the pain. Denies any flank pain. Exam: Tender mid lower abdomen. I have greeted and performed a rapid initial assessment of this patient. A comprehensive ED assessment and evaluation of the patient, analysis of test results and completion of medical decision making process will be conducted by an additional ED providers. TRAVEL OUTSIDE OF THE [place] IN LAST 30 DAYS: No - Related Data Allergies/Adverse Reactions: No Known Allergies Allergy (Verified 06/18/18 09:03) Past Medical History - Past Medical History Cardiac Medical History: Denies: Hx Coronary Artery Disease, Hx Heart Attack, Hx Hypertension Pulmonary Medical History: Denies: Hx Asthma, Hx Bronchitis, Hx COPD, Hx Pneumonia Neurological Medical History: Reports: Hx Cerebrovascular Accident. 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 Failed. Left transposed basilic vei - Immunizations Hx Diphtheria, Pertussis, Tetanus Vaccination: Yes Physical Exam - Vital signs Vitals: Temp Pulse Resp BP Pulse Ox 98.0 F 78 21 H 189/71 H 94 10/23/20 14:28 10/23/20 14:28 10/23/20 14:28 10/23/20 14:28 10/23/20 14:28 Course - Vital Signs Vital signs: Temp Pulse Resp BP Pulse Ox 98.0 F 78 21 H 189/71 H 94 10/23/20 14:28 10/23/20 14:28 10/23/20 14:28 10/23/20 14:28 10/23/20 14:28 Doctor's Discharge - Discharge Referrals: SUSI GONZALEZ MD [Primary Care Provider] - Follow up as needed
--- NOTE | 2020-10-23 18:50 | ER Document Report ---
ED General - General Chief Complaint: Blood in Catheter Stated Complaint: BLOOD IN URINATION Time Seen by Provider: 10/23/20 15:23 Primary Care Provider: JEANETTE LOTT MD [ACTIVE STAFF] - Follow up as needed MARY WHITAEKR MD [ACTIVE STAFF] - Follow up as needed SUSI GONZALEZ MD [Primary Care Provider] - Follow up as needed TRAVEL OUTSIDE OF THE [place] IN LAST 30 DAYS: No - HPI Notes: 85-year-old male presents with blood in his urine. Patient states that for the past 2 weeks he has had bleeding with urination, here tonight because of increasing pain. He states that initially had a little bit of pain, however pain has progressively worsened throughout the day. Described as so bad, pain in the suprapubic area. Patient states that this has happened to him before, he is not sure as to the cause. He notes that he passes clots in his urine. He does not have any difficulty urinating. He has a history of prostate cancer, he has not seen oncology recently as his former oncologist retired, son is asking for new oncology information. He is not seen a urologist before. He is a dialysis patient, he is due tomorrow for a normal session. - Related Data Allergies/Adverse Reactions: No Known Allergies Allergy (Verified 06/18/18 09:03) Past Medical History - General Information source: Patient - Social History Smoking Status: Former Smoker Family History: Reviewed & Not Pertinent - Past Medical History Cardiac Medical History: Denies: Hx Coronary Artery Disease, Hx Heart Attack, Hx Hypertension Pulmonary Medical History: Denies: Hx Asthma, Hx Bronchitis, Hx COPD, Hx Pneumonia Neurological Medical History: Reports: Hx Cerebrovascular Accident. 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 Failed. Left transposed basilic vei - Immunizations Hx Diphtheria, Pertussis, Tetanus Vaccination: Yes Hx Pneumococcal Vaccination: 03/23/17 Review of Systems - Review of Systems Constitutional: No symptoms reported EENT: No symptoms reported Cardiovascular: denies: Chest pain Respiratory: denies: Short of breath Gastrointestinal: denies: Abdominal pain, Diarrhea, Vomiting Genitourinary: See HPI Male Genitourinary: No symptoms reported Musculoskeletal: No symptoms reported Skin: No symptoms reported Hematologic/Lymphatic: No symptoms reported Neurological/Psychological: No symptoms reported Physical Exam - Vital signs Vitals: Temp Pulse Resp BP Pulse Ox 98.0 F 78 21 H 189/71 H 94 10/23/20 14:28 10/23/20 14:28 10/23/20 14:28 10/23/20 14:28 10/23/20 14:28 - General General appearance: Appears well, Alert In distress: None - HEENT Head: Normocephalic, Atraumatic Extraocular movements intact: Yes Pupils: PERRL - Respiratory Breath sounds: Normal - Cardiovascular Rhythm: Regular Heart sounds: Normal auscultation - Abdominal Distension: No distension Tenderness: Tender - Suprapubic - Genitourinary Notes: Uncircumcised penis, no penile swelling, no testicular swelling, there is hematuria present in underwear - Extremities General lower extremity: No: Edema - Neurological Neuro grossly intact: Yes Cognition: Normal Orientation: AAOx4 - Psychological Associated symptoms: Normal affect - Skin Skin Temperature: Warm Course - Re-evaluation Re-evalutation: 85-year-old male ESRD patient who still makes urine here for hematuria x2 weeks. He is alert and well-appearing on exam, hemodynamically stable, mild suprapubic tenderness, obvious hematuria present. I suspect it is likely due to his known prostate issues, infection possibility as well. He will undergo continuous bladder irrigation for clot removal. 10/23/20 22:28 CBI is in progress, small clots have passed, will continue to monitor 10/24/20 01:27 Urine has significantly lightened in color. Will have nursing remove Cuadra at this time. I will start him on Keflex for primitive UTI coverage. I discussed with him and his son need to follow-up with urology, will provide contact information. They requested me to provide contact information for oncology. Return precautions given, stable time of discharge. - Vital Signs Vital signs: Temp Pulse Resp BP Pulse Ox 98.0 F 78 21 H 189/71 H 94 10/23/20 14:28 10/23/20 14:28 10/23/20 14:28 10/23/20 14:28 10/23/20 14:28 - Laboratory Results Laboratory Results Interpreted: 10/23/20 21:33 Urine Protein >=500 H Urine Glucose (UA) 50 H Urine Ketones TRACE H Urine Blood LARGE H Critical Laboratory Results Reviewed: No Critical Results - Radiology Results Critical Radiology Results Reviewed: No Critical Results Discharge - Discharge Clinical Impression: Hematuria Qualifiers: Hematuria type: gross Qualified Code(s): R31.0 - Gross hematuria Disposition: HOME, SELF-CARE Additional Instructions: Please go to dialysis today as planned. Please follow-up with urology for the blood in your urine, see contact information below. Please begin course of antibiotics, you may continue to use Pyridium for bladder spasm. Your discharge paperwork also contains information for oncology. Return to the emergency department for any concerning worsening symptoms. Urology [facility] [address] [place], [place] [id number] Prescriptions: Cephalexin Monohydrate [Keflex 500 mg Capsule] 500 mg PO BID 7 Days #14 capsule Phenazopyridine HCl [Pyridium 100 Mg Tablet] 100 mg PO TID 2 Days #6 tablet Referrals: SUSI GONZALEZ MD [Primary Care Provider] - Follow up as needed JEANETTE LOTT MD [ACTIVE STAFF] - Follow up as needed MARY WHITAKER MD [ACTIVE STAFF] - Follow up as needed
[2020-10-23] MEDS ORDERED: LIDOCAINE 2% URO-JET 5 ML KIT MM ONE ×2 (19:04→21:45)
[2020-10-23] MEDS ORDERED: HYDROCODONE/ACETAMINOPHEN 5-325 MG TABLET PO ONE ×2 (19:04→21:45)
[2020-10-23] MEDS ORDERED: OXYCODONE HCL IR 5 MG TABLET PO ONE (22:27)
[2020-10-23] MEDS ORDERED: PHENAZOPYRIDINE HCL 100 MG TABLET PO ONE (22:28)
[2020-10-23 23:18] LABS: BILIRUBIN,URINE NEGATIVE (NEGATIVE); COLOR,URINE RED; GLUCOSE, URINE 50 mg/dL (NEGATIVE); KETONES,URINE TRACE mg/dL (NEGATIVE); LEUKOCYTE ESTERASE,URINE NEGATIVE (NEGATIVE); NITRITE,URINE NEGATIVE (NEGATIVE); PROTEIN,URINE >=500 mg/dL (NEGATIVE); URINE SPECIFIC GRAVITY 1.013; UROBILINOGEN,URINE NEGATIVE mg/dL (<2.0)
[2020-10-23 23:23] LABS: APPEARANCE,URINE TURBID
[2020-10-24] MEDS ORDERED: OXYCODONE HCL IR 5 MG TABLET PO ONE (01:28)
[2020-10-24 03:44] VITALS: BP 158/68
== END 2020-10-24 01:45 | disposition home or self-care (01) ==
LOC: ER 14:20
DX: R31.0 Gross hematuria (principal); E11.22 Type 2 diabetes mellitus with diabetic chronic kidney disease; N18.6 End stage renal disease; Z85.46 Personal history of malignant neoplasm of prostate
CPT/HCPCS: 99284; 51702; 87086; 81001; A9270 ×5; J3490